=== PATIENT | female | born 1945 | race Caucasian/White ===

== ENCOUNTER → 2016-04-29 | Outpatient (CLI) | payer MEDICARE, BC ==
[2016-04-29 12:06] LABS: Blood Urea Nitrogen 15 mg/dL (7-17); Non-African American GFR(MDRD) 57 (>60 ml/min/1.73 sqM)
--- NOTE | 2016-04-29 12:44 | CT ---
EXAMINATION TYPE: CT abdomen w con DATE OF EXAM: 04/29/2016 12:26 PM COMPARISON: CT CAP April 15, 2016 HISTORY: Lymphoma follow up CT DLP: 976.3 mGycm Automated exposure control for dose reduction was used. TECHNIQUE: Helical acquisition of images was performed from the lung bases through the top of iliac crest to include entire abdomen. CONTRAST: Performed with Oral Contrast and with IV Contrast, patient injected with 80 ml mL of Visipaque 320. FINDINGS: LUNG BASES: Mild cardiomegaly remains present. LIVER/GB: Dependent densities in gallbladder consistent with small stones. Prominent fold or catheter is redemonstrated. PANCREAS: No significant abnormality is seen. SPLEEN: No significant abnormality is seen. ADRENALS: No significant abnormality is seen. KIDNEYS: There is symmetric cortical medullary uptake and excretion from both kidneys without evidenc e of hydronephrosis bilaterally. Central simple appearing parapelvic cyst in left kidney is noted. ABDOMINAL ADENOPATHY: None visualized. OSSEOUS STRUCTURES: Multilevel spurring and vacuum disc phenomenon in the mid to lower thoracic spine is redemonstrated. BOWEL: The oral contrast does not reach colonic level. A small sliding hiatal hernia is redemonstrat ed. No suspicious small or large bowel dilatation is noted. There is moderate calcified plaque in the atherosclerotic aorta. Right common iliac stent graft is no . 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 This is discussed on November study. Reconstitution at level of interna l and external iliac branching is noted. There is [place] fat containing ventral wall hernia just above the umbilicus redemonstrated. IMPRESSION: NO SUSPICIOUS MASS OR ADENOPATHY IS SEEN TO SUGGEST NEOPLASM OR LYMPHOMA INVOLVEMENT IN THE ABDOMEN. NO HEPATOSPLENOMEGALY IS SEEN. NO SIGNIFICANT CHANGE FROM PRIOR STUDIES.
== END | disposition home or self-care (01) ==
LOC: RADCTMAIN 11:22
PROVIDERS: ATTEND Internal Medicine Hematology & Oncology
DX: Z03.89 Encounter for observation for other suspected diseases and conditions ruled out (principal); C83.09 Small cell B-cell lymphoma, extranodal and solid organ sites
CPT/HCPCS: 82565; 84520; 74160; 36415; Q9967

== ENCOUNTER → 2016-12-19 | Outpatient (CLI) | payer MEDICARE, BC ==
[2016-12-19 14:27] LABS: CH 31.1; CHCM 33.7; HDW 2.68; HGB 12.5 gm/dL (11.4-16.0); MCH 32.1 pg (25.0-35.0); MCHC 34.6 g/dL (31.0-37.0); MCV 92.6 fL (80.0-100.0); Mean Platelet Volume 7.1; RBC 3.89 m/uL (3.80-5.40); RDW 13.2 % (11.5-15.5); WBC 7.2 k/uL (3.8-10.6)
[2016-12-19 14:29] LABS: Amorphous Sediment,Urine Rare /hpf; Appearance,Urine Turbid (Clear); Bacteria,Urine Few /hpf; Bilirubin,Urine Negative (Negative); Glucose,Urine (UA) Negative (Negative); Ketones,Urine Negative (Negative); Leukocyte Esterase,Urine Trace (Negative); Mucus,Urine Rare /hpf; Nitrite,Urine Negative (Negative); PH, Urine 6.5 (5.0-8.0); Particle Count 2230; Protein,Urine Trace (Negative); Specific Gravity,Urine 1.019 (1.001-1.035); Squamous Epithelial Cell,Urine 2 /hpf (0-4); UA Billing (MACRO vs. MICRO) MICRO; WBC,Urine 1 /hpf (0-5)
[2016-12-19 14:42] LABS: INR 1.1 (<1.2); Partial Thromboplastin Time 22.6 sec (22.0-30.0); Prothrombin Time 10.6 sec (9.0-12.0)
[2016-12-19 14:47] LABS: ALT 41 U/L (9-52); AST 29 U/L (14-36); Alkaline Phosphatase 126 U/L (38-126); Anion Gap 9 mmol/L; Blood Urea Nitrogen 17 mg/dL (7-17); Calcium 9.5 mg/dL (8.4-10.2); Carbon Dioxide 27 mmol/L (22-30); Chloride 101 mmol/L (98-107); Glucose 83 mg/dL (74-99); Non-African American GFR(MDRD) 55 (>60 ml/min/1.73 sqM); Sodium 137 mmol/L (137-145); Total Protein 6.7 g/dL (6.3-8.2)
== END | disposition home or self-care (01) ==
LOC: LABPAT 13:38
PROVIDERS: ATTEND Orthopaedic Surgery
DX: Z01.810 Encounter for preprocedural cardiovascular examination (principal); Z01.812 Encounter for preprocedural laboratory examination; Z51.81 Encounter for therapeutic drug level monitoring; Z79.01 Long term (current) use of anticoagulants
CPT/HCPCS: 80053; 81001; 85027; 85610; 85730; 87070

== ENCOUNTER 2016-12-28 19:59 | Observation (INO) | payer MEDICARE, BC ==
[2016-12-28] MEDS ORDERED: SODIUM CHLORIDE 0.9% 1,000 ML IV STA ×2 (20:02)
[2016-12-28] MEDS ORDERED: ONDANSETRON 4 MG/2 ML VIAL IVP STA (20:02)
[2016-12-28] MEDS ORDERED: HYDROmorphone 1 MG/ML 1 ML SYRINGE IVP STA (20:03)
--- NOTE | 2016-12-28 20:09 | ED ---
Nausea/Vomiting/Diarrhea HPI - General Source: patient, EMS, RN notes reviewed Mode of arrival: EMS Limitations: no limitations - History of Present Illness MD complaint: nausea, vomiting, abdominal pain, other <Darnell Guzman - Last Filed: 12/28/16 20:46> <Raymundo Cadena - Last Filed: 12/28/16 21:56> - General Chief complaint: Nausea/Vomiting/Diarrhea Stated complaint: NVD Time Seen by Provider: 12/28/16 19:59 - History of Present Illness Initial comments: This is a 71-year-old female history chronic atrial fibrillation who states she had the onset this morning after waking of nausea vomiting and later developed anterior mid epigastric and minutes lower sternal chest pain. She states the pain is sharp 78/10 severity she's had no diarrhea with it. No fevers chills or sweats no cough or phlegm production. States that the pain does get worse with deep breathing and with certain movements. Patient again no relief after 8 mg of Zofran in by EMS. (Darnell Guzman) - Related Data Home Medications Medication Instructions Recorded Confirmed ALPRAZolam [Xanax] 0.25 mg PO TID PRN 05/15/15 12/20/16 Apixaban [Eliquis] 2.5 mg PO BID 05/15/15 12/20/16 Ondansetron Odt [Zofran ODT] 4 mg PO TID PRN 05/15/15 12/20/16 Pantoprazole Sodium [Protonix] 40 mg PO DAILY 05/15/15 12/20/16 Sotalol [Betapace] 80 mg PO DAILY 12/15/15 12/20/16 Lisinopril [Zestril] 10 mg PO QAM 01/15/16 12/20/16 amLODIPine [Norvasc] 5 mg PO DAILY 01/15/16 12/20/16 hydrALAZINE HCL [Apresoline] 50 mg PO TID 01/15/16 12/20/16 Atorvastatin [Lipitor] 40 mg PO DAILY 12/20/16 12/20/16 Budesonide-Formot 160-4.5 Mcg 2 puff INHALATION BID PRN 12/20/16 12/20/16 [Symbicort 160-4.5 Mcg Inhaler] Diltiazem HCl [Diltiazem ER] 120 mg PO QAM 12/20/16 12/20/16 HYDROcodone/APAP 5-325MG [[place] 1 - 2 tab PO Q6HR PRN 12/20/16 12/20/16 5-325] Meclizine [Antivert] 25 mg PO TID 12/20/16 12/20/16 Metoclopramide HCl [Reglan] 5 mg PO TID 12/20/16 12/20/16 Previous Rx's Medication Instructions Recorded Spironolactone [Aldactone] 25 mg PO DAILY #30 tab 05/18/15 Naproxen 500 mg PO Q12HR #20 tab 01/15/16 Allergies Allergy/AdvReac Type Severity Reaction Status Date / Time Sulfa (Sulfonamide Allergy Anaphylaxis Verified 12/28/16 20:10 Antibiotics) Review of Systems ROS Other: All systems not noted in ROS Statement are negative. <Darnell Guzman - Last Filed: 12/28/16 20:46> ROS Other: All systems not noted in ROS Statement are negative. <Raymundo Cadena - Last Filed: 12/28/16 21:56> ROS Statement: Those systems with pertinent positive or pertinent negative responses have been documented in the HPI. 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 12-11-15 tooth extraction-was on abx prior to extraction. Past Anesthesia/Blood Transfusion Reactions: No Reported Reaction Past Psychological History: No Psychological Hx Reported Smoking Status: Former smoker - Past Family History Mother Family Medical History: No Reported History Additional Family Medical History / Comment(s): . Father History Unknown: Yes <Darnell Guzman - Last Filed: 12/28/16 20:46> General Exam Limitations: no limitations General appearance: alert, in distress Head exam: Present: atraumatic, normocephalic, normal inspection Eye exam: Present: normal appearance, PERRL, EOMI. Absent: scleral icterus, conjunctival injection, periorbital swelling ENT exam: Present: normal exam, mucous membranes moist Neck exam: Present: normal inspection. Absent: tenderness, meningismus, lymphadenopathy Respiratory exam: Present: normal lung sounds bilaterally, chest wall tenderness (Reproducible tennis palpation along the lower costosternal angle and xiphoid. No step-off or crepitation). Absent: respiratory distress, wheezes, rales, rhonchi, stridor Cardiovascular Exam: Present: tachycardia, irregular rhythm. Absent: diastolic murmur, rubs, gallop, clicks GI/Abdominal exam: Present: soft, tenderness (Mild epigastric right upper quadrant tenderness palpation no guarding no rebound), normal bowel sounds. Absent: distended, guarding, rebound, rigid Extremities exam: Present: normal inspection, full ROM, normal capillary refill. Absent: tenderness, pedal edema, joint swelling, calf tenderness Back exam: Present: normal inspection Neurological exam: Present: alert, oriented X3, CN II-XII intact Psychiatric exam: Present: normal affect, normal mood Skin exam: Present: warm, dry, intact, normal color. Absent: rash <Darnell Guzman - Last Filed: 12/28/16 20:46> <Raymundo Cadena - Last Filed: 12/28/16 21:56> - General Exam Comments Initial Comments: This is a well-developed well-nourished awake alert appearing female (Darnell Guzman) Course <Darnell Guzman - Last Filed: 12/28/16 20:46> <Raymundo Cadena - Last Filed: 12/28/16 21:56> Vital Signs 12/28/16 12/28/16 12/28/16 20:00 20:54 21:33 Temperature 98.1 F 98.6 F Pulse Rate 126 H 104 H 109 H Respiratory 24 24 20 Rate Blood Pressure 159/93 180/74 158/74 O2 Sat by Pulse 94 L 99 97 Oximetry - Reevaluation(s) Reevaluation #1: 12/28/16 20:46 The patient will be endorsed to Dr. Cadena at our shift change. He will make the final disposition (Darnell Guzman) Medical Decision Making - Lab Data Result diagrams: 12/28/16 20:21 - EKG Data -: EKG Interpreted by Me (Atrial fibrillation rate was 108 QRS 66 QT since QTC of 352/471 nonspecific) <Darnell Guzman - Last Filed: 12/28/16 20:46> - Lab Data Result diagrams: 12/28/16 20:21 12/28/16 20:21 - Radiology Data Radiology results: image reviewed (Acute abdominal series with chest x-ray shows no acute process) <Raymundo Cadena - Last Filed: 12/28/16 21:56> - Medical Decision Making Patient reexamined and resting comfortably in bed. Abdomen soft and nontender. Patient updated on results and plan. Case discussed with practitioner lean coach, who will admit for Dr. Arriaga, covering for Dr. Mckeon. (Raymundo Cadena) - Lab Data Lab Results 12/28/16 12/28/16 12/28/16 Range/Units 20:13 20:21 20:21 WBC (3.8-10.6) k/uL RBC (3.80-5.40) m/uL Hgb (11.4-16.0) gm/dL Hct (34.0-46.0) % MCV (80.0-100.0) fL MCH (25.0-35.0) pg MCHC (31.0-37.0) g/dL RDW (11.5-15.5) % Plt Count (150-450) k/uL Neutrophils % % Lymphocytes % % Monocytes % % Eosinophils % % Basophils % % Neutrophils # (1.3-7.7) k/uL Lymphocytes # (1.0-4.8) k/uL Monocytes # (0-1.0) k/uL Eosinophils # (0-0.7) k/uL Basophils # (0-0.2) k/uL Sodium 136 L (137-145) mmol/L Potassium 3.8 (3.5-5.1) mmol/L Chloride 101 (98-107) mmol/L Carbon Dioxide 20 L (22-30) mmol/L Anion Gap 15 mmol/L BUN 17 (7-17) mg/dL Creatinine 0.86 (0.52-1.04) mg/dL Est GFR (MDRD) Af Amer >60 (>60 ml/min/1.73 sqM) Est GFR (MDRD) Non-Af >60 (>60 ml/min/1.73 sqM) Glucose 177 H (74-99) mg/dL Calcium 9.9 (8.4-10.2) mg/dL Total Bilirubin 1.3 (0.2-1.3) mg/dL AST 31 (14-36) U/L ALT 33 (9-52) U/L Alkaline Phosphatase 162 H (38-126) U/L Total Creatine Kinase 43 (30-135) U/L CK-MB (CK-2) 1.4 (0.0-2.4) ng/mL CK-MB (CK-2) Rel Index 3.3 Troponin I <0.012 (0.000-0.034) ng/mL Total Protein 7.8 (6.3-8.2) g/dL Albumin 4.5 (3.5-5.0) g/dL Amylase 40 (30-110) U/L Lipase 55 (23-300) U/L Urine Color Light Yellow Urine Appearance Cloudy H (Clear) Urine pH 8.0 (5.0-8.0) Ur Specific [place] 1.009 (1.001-1.035) Urine Protein Negative (Negative) Urine Glucose (UA) Trace H (Negative) Urine Ketones 2+ H (Negative) Urine Blood Negative (Negative) Urine Nitrite Negative (Negative) Urine Bilirubin Negative (Negative) Urine Urobilinogen <2.0 (<2.0) mg/dL Ur Leukocyte Esterase Negative (Negative) Urine RBC <1 (0-5) /hpf Urine WBC 1 (0-5) /hpf Ur Squamous Epith Cells <1 (0-4) /hpf 12/28/16 Range/Units 20:21 WBC 11.1 H (3.8-10.6) k/uL RBC 4.39 (3.80-5.40) m/uL Hgb 13.8 (11.4-16.0) gm/dL Hct 39.4 (34.0-46.0) % MCV 89.6 (80.0-100.0) fL MCH 31.4 (25.0-35.0) pg MCHC 35.1 (31.0-37.0) g/dL RDW 14.1 (11.5-15.5) % Plt Count 345 (150-450) k/uL Neutrophils % 87 % Lymphocytes % 9 % Monocytes % 2 % Eosinophils % 1 % Basophils % 0 % Neutrophils # 9.7 H (1.3-7.7) k/uL Lymphocytes # 1.0 (1.0-4.8) k/uL Monocytes # 0.3 (0-1.0) k/uL Eosinophils # 0.1 (0-0.7) k/uL Basophils # 0.0 (0-0.2) k/uL Sodium (137-145) mmol/L Potassium (3.5-5.1) mmol/L Chloride (98-107) mmol/L Carbon Dioxide (22-30) mmol/L Anion Gap mmol/L BUN (7-17) mg/dL Creatinine (0.52-1.04) mg/dL Est GFR (MDRD) Af Amer (>60 ml/min/1.73 sqM) Est GFR (MDRD) Non-Af (>60 ml/min/1.73 sqM) Glucose (74-99) mg/dL Calcium (8.4-10.2) mg/dL Total Bilirubin (0.2-1.3) mg/dL AST (14-36) U/L ALT (9-52) U/L Alkaline Phosphatase (38-126) U/L Total Creatine Kinase (30-135) U/L CK-MB (CK-2) (0.0-2.4) ng/mL CK-MB (CK-2) Rel Index Troponin I (0.000-0.034) ng/mL Total Protein (6.3-8.2) g/dL Albumin (3.5-5.0) g/dL Amylase (30-110) U/L Lipase (23-300) U/L Urine Color Urine Appearance (Clear) Urine pH (5.0-8.0) Ur Specific [place] (1.001-1.035) Urine Protein (Negative) Urine Glucose (UA) (Negative) Urine Ketones (Negative) Urine Blood (Negative) Urine Nitrite (Negative) Urine Bilirubin (Negative) Urine Urobilinogen (<2.0) mg/dL Ur Leukocyte Esterase (Negative) Urine RBC (0-5) /hpf Urine WBC (0-5) /hpf Ur Squamous Epith Cells (0-4) /hpf Disposition <Darnell Guzman - Last Filed: 12/28/16 20:46> Decision Time: 21:56 <Raymundo Cadena - Last Filed: 12/28/16 21:56> Clinical Impression: Vomiting, Chest pain Disposition: ADMITTED IP TO THIS HOSP Referrals: Paige Mckeon MD [Primary Care Provider] - 1-2 days
[2016-12-28] MEDS ORDERED: PROMETHAZINE INJ 25 MG in SODIUM CHLORIDE 0.9% 50 ML IVPB STA (20:17)
[2016-12-28 20:35] LABS: Basophils % (A) 0 %; CH 32.1; CHCM 35.9; Eosinophils # (A) 0.1 k/uL (0-0.7); Eosinophils % (A) 1 %; HCT 39.4 % (34.0-46.0); HDW 2.69; HGB 13.8 gm/dL (11.4-16.0); Luc # (Auto) 0.05; Luc % (Auto) 0; Lymphocytes % (A) 9 %; MCH 31.4 pg (25.0-35.0); MCHC 35.1 g/dL (31.0-37.0); MCV 89.6 fL (80.0-100.0); Mean Platelet Volume 7.2; Monocytes # (A) 0.3 k/uL (0-1.0); Monocytes % (A) 2 %; Neutrophils # (A) 9.7 k/uL (1.3-7.7); Neutrophils % (A) 87 %; RBC 4.39 m/uL (3.80-5.40); RDW 14.1 % (11.5-15.5); WBC 11.1 k/uL (3.8-10.6); WBC (Perox) 10.95
[2016-12-28 20:48] LABS: Appearance,Urine Cloudy (Clear); Bilirubin,Urine Negative (Negative); Glucose,Urine (UA) Trace (Negative); Ketones,Urine 2+ (Negative); Leukocyte Esterase,Urine Negative (Negative); Nitrite,Urine Negative (Negative); Particle Count 3953; Protein,Urine Negative (Negative); RBC,Urine <1 /hpf (0-5); Specific Gravity,Urine 1.009 (1.001-1.035); Squamous Epithelial Cell,Urine <1 /hpf (0-4); UA Billing (MACRO vs. MICRO) MICRO; Urobilinogen,Urine <2.0 mg/dL (<2.0); WBC,Urine 1 /hpf (0-5)
[2016-12-28 20:52] LABS: ALT 33 U/L (9-52); AST 31 U/L (14-36); Alkaline Phosphatase 162 U/L (38-126); Amylase 40 U/L (30-110); Anion Gap 15 mmol/L; Blood Urea Nitrogen 17 mg/dL (7-17); Calcium 9.9 mg/dL (8.4-10.2); Carbon Dioxide 20 mmol/L (22-30); Chloride 101 mmol/L (98-107); Glucose 177 mg/dL (74-99); Non-African American GFR(MDRD) >60 (>60 ml/min/1.73 sqM); Potassium 3.8 mmol/L (3.5-5.1); Sodium 136 mmol/L (137-145); Total Bilirubin 1.3 mg/dL (0.2-1.3); Total Protein 7.8 g/dL (6.3-8.2)
[2016-12-28 20:55] LABS: Creatine Kinase 43 U/L (30-135)
--- NOTE | 2016-12-28 20:58 | XR ---
EXAMINATION TYPE: XR abdomen acute w cxr DATE OF EXAM: 12/28/2016 COMPARISON: NONE HISTORY: Abdominal pain TECHNIQUE: Frontal view of the chest, upright view of the abdomen and supine views obtained in total of 4 images FINDINGS: Chest x-ray is unremarkable but rotated, there are overlying cardiac leads. Bone mineraliz ation is reduced. Sclerotic density with lucency noted within the right hip, there may be prior osteo necrosis with collapse of the femoral head. There is no evidence for pneumoperitoneum. Vascular calcifications are present within the abdomen. S urgical clips are present in the right upper quadrant. The bowel gas pattern is unremarkable as there is air throughout nondilated small and large bowel. No sizeable air fluid levels. No mass effects are seen. No unusual calcifications. IMPRESSION: Unremarkable study
[2016-12-28 21:08] LABS: Creatine Kinase MB 1.4 ng/mL (0.0-2.4); Troponin I <0.012 ng/mL (0.000-0.034)
[2016-12-28] MEDS ORDERED: NITROGLYCERIN SL TABS 0.4 MG TAB SUBLINGUAL PRN (21:56)
[2016-12-28] MEDS ORDERED: METOCLOPRAMIDE 5 MG/ML 2 ML VIAL IVP STA (22:15)
[2016-12-28 22:51] VITALS: BMI 34.3
[2016-12-28] MEDS: MORPHINE SULFATE 2 MG/ML SYRINGE IVP PRN (23:08)
[2016-12-28] MEDS: ONDANSETRON 4 MG/2 ML VIAL IVP PRN (23:08)
[2016-12-29] MEDS: MORPHINE SULFATE 2 MG/ML SYRINGE IVP PRN ×4 (01:52→13:48)
[2016-12-29] MEDS: NITROGLYCERIN OINT 1 INCH/GM PACKET TOPICAL SCH ×3 (01:53→12:06)
[2016-12-29] MEDS ORDERED: MAG HYDROX/AL HYDROX/SIMETH 30 ML CUP PO PRN (01:56)
[2016-12-29 02:46] LABS: Troponin I 0.033 ng/mL (0.000-0.034)
[2016-12-29] MEDS: ONDANSETRON 4 MG/2 ML VIAL IVP PRN ×2 (08:26→14:41)
[2016-12-29] MEDS ORDERED: ASPIRIN 325 MG TAB PO SCH (09:00)
[2016-12-29 09:49] LABS: Cholesterol 119 mg/dL (<200); HDL Cholesterol 58 mg/dL (40-60)
[2016-12-29 10:14] LABS: Creatine Kinase MB 1.8 ng/mL (0.0-2.4); Troponin I 0.024 ng/mL (0.000-0.034)
--- NOTE | 2016-12-29 10:59 | P.CRDCN ---
History of Present Illness Consult date: 12/29/16 Consult reason: chest pain History of present illness: 71-year-old lady with history of paroxysmal atrial fibrillation and hypertension is admitted to hospital with nausea vomiting and complained of chest pain. She is admitted to hospital for the same and cardiology has been consulted. At the time of my evaluation this morning she is pain-free hemodynamically stable EKG does not reveal acute ischemic changes she has had runs of atrial fibrillation and myocardial infarction is ruled out. Patient is to undergo hip replacement and has recently been evaluated. Her stress test is negative for ischemia and echocardiogram apparently was within normal limits. Her chest discomfort is atypical and noncardiac in origin. This discomfort is probably related to the nausea vomiting. She is stable to be discharged home and from cardiac standpoint still stable to go through surgery under anesthesia Review of Systems Constitutional: Denies chills. Denies fever. Eyes: Denies blurred vision. Denies pain. Ears, nose, mouth and throat: Denies headache. Denies sore throat. Cardiovascular: chest pain. Denies shortness of breath. Respiratory: Denies cough. Gastrointestinal: Denies nausea. Denies vomiting. Patient had nausea vomiting on her initial presentation but this has resolved now Musculoskeletal: Denies myalgias. Integumentary: Denies pruritus. Denies rash. Neurological: Denies numbness. Denies weakness. Psychiatric: Denies anxiety. Denies depression. Endocrine: Denies fatigue. Denies weight change. Genitourinary: Denies burning, hematuria, frequency of urination. Hematological: No anemia or excess bleeding. 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 12-11-15 tooth extraction-was on abx prior to extraction. Past Anesthesia/Blood Transfusion Reactions: No Reported Reaction Past Psychological History: No Psychological Hx Reported Smoking Status: Former smoker Past Alcohol Use History: None Reported Additional Past Alcohol Use History / Comment(s): quit 2011 Past Drug Use History: None Reported - Past Family History Mother Family Medical History: No Reported History Additional Family Medical History / Comment(s): . Father History Unknown: Yes Medications and Allergies Home Medications Medication Instructions Recorded Confirmed Type ALPRAZolam [Xanax] 0.25 mg PO TID PRN 05/15/15 12/29/16 History Apixaban [Eliquis] 2.5 mg PO BID 05/15/15 12/29/16 History Ondansetron Odt [Zofran ODT] 4 mg PO TID PRN 05/15/15 12/29/16 History Pantoprazole Sodium [Protonix] 40 mg PO DAILY 05/15/15 12/29/16 History Spironolactone [Aldactone] 25 mg PO DAILY #30 tab 05/18/15 12/29/16 Rx Sotalol [Betapace] 80 mg PO DAILY 12/15/15 12/29/16 History Lisinopril [Zestril] 10 mg PO QAM 01/15/16 12/29/16 History Naproxen 500 mg PO Q12HR #20 tab 01/15/16 12/29/16 Rx amLODIPine [Norvasc] 5 mg PO DAILY 01/15/16 12/29/16 History hydrALAZINE HCL [Apresoline] 50 mg PO TID 01/15/16 12/29/16 History Atorvastatin [Lipitor] 40 mg PO DAILY 12/20/16 12/29/16 History Budesonide-Formot 160-4.5 Mcg 2 puff INHALATION BID PRN 12/20/16 12/29/16 History [Symbicort 160-4.5 Mcg Inhaler] Diltiazem HCl [Diltiazem ER] 120 mg PO QAM 12/20/16 12/29/16 History HYDROcodone/APAP 5-325MG [[place] 1 - 2 tab PO Q6HR PRN 12/20/16 12/29/16 History 5-325] Meclizine [Antivert] 25 mg PO TID 12/20/16 12/29/16 History Metoclopramide HCl [Reglan] 5 mg PO TID 12/20/16 12/29/16 History Allergies Allergy/AdvReac Type Severity Reaction Status Date / Time Sulfa (Sulfonamide Allergy Anaphylaxis Verified 12/29/16 07:59 Antibiotics) Physical Exam Vitals: Vital Signs Temp Pulse Pulse Resp BP BP Pulse Ox 12/29/16 08:00 98.3 F 66 18 94/57 94 L 12/29/16 04:00 97.9 F 91 18 118/58 93 L 12/28/16 23:33 98 18 12/28/16 22:43 97.6 F 89 18 130/92 95 12/28/16 21:33 98.6 F 109 H 20 158/74 97 12/28/16 20:54 104 H 24 180/74 99 12/28/16 20:00 98.1 F 126 H 24 159/93 94 L Intake and Output 12/28/16 12/29/16 12/29/16 22:59 06:59 14:59 Other: Voiding Method Toilet Toilet # Voids 2 4 Weight 90.7 kg General: The patient is awake and alert, in no distress, and does not appear acutely ill. Skin: Skin is warm and dry and no rashes or lesions are noted. Eye: Pupils are equal, round and reactive to light, extra-ocular movements are intact; there is normal conjunctiva bilaterally. Ears, nose, mouth and throat: There are moist mucous membranes and no oral lesions. Neck: The neck is supple, there is no tenderness or JVD. Cardiovascular: There is a regular rate and rhythm. No murmur, rub or gallop is appreciated. Respiratory: Lungs are clear to auscultation, respirations are non-labored, breath sounds are equal. Gastrointestinal: Soft, non-distended, non-tender abdomen without masses or organomegaly noted. There is no rebound or guarding present. Bowel sounds are unremarkable. Back: There is no tenderness to palpation in the midline. There is no obvious deformity. Musculoskeletal: Normal ROM, no tenderness, There is no pedal edema. There is no calf tenderness or swelling. Extremities: No edema. Vascular: Femoral pulse is normal. Posterior tibial pulses are normal .Dorsalis pedis is palpable. Neurological: CN II-XII intact. There are no obvious motor or sensory deficits. Speech is normal. Psychiatric: Cooperative, appropriate mood & affect, normal judgment. Results 12/28/16 20:21 12/28/16 20:21 Cardiac Enzymes 12/28/16 12/28/16 12/29/16 Range/Units 20:21 20:21 01:40 AST 31 (14-36) U/L CK-MB (CK-2) 1.4 2.0 (0.0-2.4) ng/mL Troponin I <0.012 0.033 (0.000-0.034) ng/mL 12/29/16 Range/Units 09:03 AST (14-36) U/L CK-MB (CK-2) 1.8 (0.0-2.4) ng/mL Troponin I 0.024 (0.000-0.034) ng/mL Lipids 12/29/16 Range/Units 09:07 Triglycerides 81 (<150) mg/dL Cholesterol 119 (<200) mg/dL HDL Cholesterol 58 (40-60) mg/dL CBC 12/28/16 Range/Units 20:21 WBC 11.1 H (3.8-10.6) k/uL RBC 4.39 (3.80-5.40) m/uL Hgb 13.8 (11.4-16.0) gm/dL Hct 39.4 (34.0-46.0) % Plt Count 345 (150-450) k/uL Comprehensive Metabolic Panel 12/28/16 Range/Units 20:21 Sodium 136 L (137-145) mmol/L Potassium 3.8 (3.5-5.1) mmol/L Chloride 101 (98-107) mmol/L Carbon Dioxide 20 L (22-30) mmol/L BUN 17 (7-17) mg/dL Creatinine 0.86 (0.52-1.04) mg/dL Glucose 177 H (74-99) mg/dL Calcium 9.9 (8.4-10.2) mg/dL AST 31 (14-36) U/L ALT 33 (9-52) U/L Alkaline Phosphatase 162 H (38-126) U/L Total Protein 7.8 (6.3-8.2) g/dL Albumin 4.5 (3.5-5.0) g/dL Current Medications Generic Name Dose Route Start Last Admin Trade Name Freq PRN Reason Stop Dose Admin Al Hydroxide/Mg Hydroxide 30 ml 12/29/16 01:56 12/29/16 02:07 Maalox PO 30 ml Q4HR PRN Administration GI Upset Aspirin 325 mg 12/29/16 09:00 12/29/16 08:24 Aspirin PO 325 mg DAILY MIRANDA Administration Morphine Sulfate 2 mg 12/28/16 23:00 12/29/16 08:24 Morphine Sulfate (Inj) IVP 2 mg Q3H PRN Administration Pain/Discomfort Nitroglycerin 1 inch 12/29/16 00:00 12/29/16 05:47 Nitro-Bid Oint TOPICAL Not Given Q6HR [facility] Nitroglycerin 0.4 mg 12/28/16 21:56 Nitrostat SUBLINGUAL Q5M PRN Chest Pain Ondansetron HCl 4 mg 12/28/16 23:00 12/29/16 08:26 Zofran IVP 4 mg Q6HR PRN Administration Nausea And Vomiting Sodium Chloride 10 ml 12/29/16 09:00 12/29/16 08:24 Saline Flush IV 10 ml BID MIRANDA Administration Intake and Output 12/28/16 12/29/16 12/29/16 22:59 06:59 14:59 Other: Voiding Method Toilet Toilet # Voids 2 4 Weight 90.7 kg 12/28/16 20:21 12/28/16 20:21 EKG Interpretations (text) Normal sinus rhythm and 1 EKG showed atrial fibrillation with nonspecific ST-T wave changes Assessment and Plan Plan: Precordial chest pain Nausea vomiting Arthritis Paroxysmal atrial fibrillation Patient had recent negative cardiac workup myocardial infarction is ruled out chest discomfort is atypical and related to nausea vomiting does not require further workup at this time she is stable to be discharged home and can still proceed with her hip surgery from cardiac standpoint
[2016-12-29 12:25] VITALS: BP 97/50; PULSE 69; RESP 16; TEMP 98
--- NOTE | 2016-12-29 18:41 | P.HPIM ---
History of Present Illness H&P Date: 12/29/16 (Discharge summary) Chief Complaint: Abdominal pain This is 71-year-old female well-known to her service comes in to the hospital with complaints of abdominal pain and mild chest pain. Patient was admitted multiple times to [facility] with these complaints patient underwent a cholecystectomy thereafter after multiple studies her symptoms were attribute it to gastroparesis. Patient was recommended to eat small frequent meals and was also given a prescription for Reglan in the past. Patient was doing well on the above-described regimen. Patient's son was at bedside states that she ate a large cheeseburger prior to her onset of her symptoms thereafter noted severe abdominal pain radiating to her chest. She can to the hospital for further evaluation Off note patient is scheduled for a hip surgery tomorrow in the a.m. Patient was noted to be in atrial fibrillation was slightly increased ventricular rate At the time of my evaluation patient states that her abdominal pain is resolved no nausea no chest pain or difficulty breathing no diarrhea urinary urgency or frequency Review of systems a 14 point review of system was done nonpertinent was mentioned above Physical exam Gen. appearance oriented 3 in no distress Neck is supple no JVD Lungs good air entry clear to auscultation no rhonchi or wheezing Heart S1-S2 heard regular rate and rhythm no murmurs appreciated Abdomen is soft nontender no organomegaly bowel sounds are intact Neurologically cranial nerves II-12 grossly intact no focal motor or sensory deficits noted Skin no abnormalities appreciated. Musculoskeletal there is some tenderness noted to straight leg test on both sides Labs were reviewed Assessment and plan #1 acute exacerbation of gastroparesis #2 atypical chest pain #3 atrial fibrillation, chronic controlled ventricular rate #4 history of CAD #5 osteoarthritis #6 essential hypertension. #7 dyslipidemia Plan Patient will be discharged home. Is recommended to come back in to the hospital for her elective hip surgery Patient is stable no further workup is needed patient's symptoms are very consistent with her previous admissions She is again recommended to follow eating frequent small meals Discharged home in stable condition. 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 12-11-15 tooth extraction-was on abx prior to extraction. Past Anesthesia/Blood Transfusion Reactions: No Reported Reaction Past Psychological History: No Psychological Hx Reported Smoking Status: Former smoker Past Alcohol Use History: None Reported Additional Past Alcohol Use History / Comment(s): quit 2011 Past Drug Use History: None Reported - Past Family History Mother Family Medical History: No Reported History Additional Family Medical History / Comment(s): . Father History Unknown: Yes Medications and Allergies Home Medications Medication Instructions Recorded Confirmed Type ALPRAZolam [Xanax] 0.25 mg PO TID PRN 05/15/15 12/29/16 History Apixaban [Eliquis] 2.5 mg PO BID 05/15/15 12/29/16 History Ondansetron Odt [Zofran ODT] 4 mg PO TID PRN 05/15/15 12/29/16 History Pantoprazole Sodium [Protonix] 40 mg PO DAILY 05/15/15 12/29/16 History Spironolactone [Aldactone] 25 mg PO DAILY #30 tab 05/18/15 12/29/16 Rx Sotalol [Betapace] 80 mg PO DAILY 12/15/15 12/29/16 History Lisinopril [Zestril] 10 mg PO QAM 01/15/16 12/29/16 History Naproxen 500 mg PO Q12HR #20 tab 01/15/16 12/29/16 Rx amLODIPine [Norvasc] 5 mg PO DAILY 01/15/16 12/29/16 History hydrALAZINE HCL [Apresoline] 50 mg PO TID 01/15/16 12/29/16 History Atorvastatin [Lipitor] 40 mg PO DAILY 12/20/16 12/29/16 History Budesonide-Formot 160-4.5 Mcg 2 puff INHALATION BID PRN 12/20/16 12/29/16 History [Symbicort 160-4.5 Mcg Inhaler] Diltiazem HCl [Diltiazem 24Hr ER] 120 mg PO QAM 12/20/16 12/29/16 History HYDROcodone/APAP 5-325MG [[place] 1 - 2 tab PO Q6HR PRN 12/20/16 12/29/16 History 5-325] Meclizine [Antivert] 25 mg PO TID 12/20/16 12/29/16 History Metoclopramide HCl [Reglan] 5 mg PO TID 12/20/16 12/29/16 History Allergies Allergy/AdvReac Type Severity Reaction Status Date / Time Sulfa (Sulfonamide Allergy Anaphylaxis Verified 12/29/16 07:59 Antibiotics) Physical Exam Vitals: Vital Signs Temp Pulse Pulse Resp BP BP Pulse Ox 12/29/16 12:00 98.0 F 69 16 97/50 94 L 12/29/16 08:00 98.3 F 66 18 94/57 94 L 12/29/16 04:00 97.9 F 91 18 118/58 93 L 12/28/16 23:33 98 18 12/28/16 22:43 97.6 F 89 18 130/92 95 12/28/16 21:33 98.6 F 109 H 20 158/74 97 12/28/16 20:54 104 H 24 180/74 99 12/28/16 20:00 98.1 F 126 H 24 159/93 94 L Intake and Output 12/29/16 12/29/16 12/29/16 06:59 14:59 22:59 Intake Total 260 Balance 260 Intake: Oral 260 Other: Voiding Method Toilet Toilet # Voids 4 1 Results CBC & Chem 7: 12/28/16 20:21 12/28/16 20:21 Labs: Abnormal Lab Results - Last 24 Hours (Table) 12/28/16 12/28/16 12/28/16 Range/Units 20:13 20:21 20:21 WBC 11.1 H (3.8-10.6) k/uL Neutrophils # 9.7 H (1.3-7.7) k/uL Sodium 136 L (137-145) mmol/L Carbon Dioxide 20 L (22-30) mmol/L Glucose 177 H (74-99) mg/dL Alkaline Phosphatase 162 H (38-126) U/L Urine Appearance Cloudy H (Clear) Urine Glucose (UA) Trace H (Negative) Urine Ketones 2+ H (Negative) Thrombosis Risk Factor Assmnt - Choose All That Apply Each Factor Represents 1 point: Obesity (BMI >25) Each Risk Factor Represents 2 Points: Age 61-74 years Thrombosis Risk Factor Assessment Total Risk Factor Score: 3 Thrombosis Risk Factor Assessment Level: Moderate Risk
== END 2016-12-29 15:05 | disposition home or self-care (01) ==
LOC: EC 19:59 → 3OBS 21:56
PROVIDERS: ADMIT Hospitalist; ATTEND Hospitalist
DX: K31.84 Gastroparesis (principal); R07.89 Other chest pain; R07.2 Precordial pain; I48.2 Chronic atrial fibrillation; I48.0 Paroxysmal atrial fibrillation; I25.10 Atherosclerotic heart disease of native coronary artery without angina pectoris; M19.90 Unspecified osteoarthritis, unspecified site; I11.0 Hypertensive heart disease with heart failure; I50.9 Heart failure, unspecified; E78.5 Hyperlipidemia, unspecified; J44.9 Chronic obstructive pulmonary disease, unspecified; Z79.01 Long term (current) use of anticoagulants; Z79.899 Other long term (current) drug therapy; Z79.51 Long term (current) use of inhaled steroids; Z88.2 Allergy status to sulfonamides; Z87.01 Personal history of pneumonia (recurrent); Z86.73 Personal history of transient ischemic attack (TIA), and cerebral infarction without residual deficits; Z86.718 Personal history of other venous thrombosis and embolism; Z87.891 Personal history of nicotine dependence; E66.9 Obesity, unspecified; Z68.34 Body mass index [BMI] 34.0-34.9, adult
CPT/HCPCS: 99285; 96365 ×2; 96375 ×3; 96361 ×4; 96376; 36415; 93005; 80061; 80053; 82150; 82550 ×2; 82553 ×2; 83690; 84484 ×2; 85025; 81001; 74022; G0378 ×2; J2550; J2765; J2405 ×2; J2270 ×2; J1170

== ENCOUNTER 2016-12-30 05:58 | Inpatient (IN) | payer MEDICARE, BC ==
[2016-12-20 11:45] VITALS: BMI 34.3
[~2016-12-30 05:58] MED LIST: ACETAMINOPHEN TAB 500 MG TAB PO ONE; LACTATED RINGERS 1,000 ML IV SCH; MELOXICAM 7.5 MG TAB PO ONE; ONDANSETRON 4 MG/2 ML VIAL IVP ONE; TRANEXAMIC ACID 1,000 MG in SODIUM CHLORIDE 0.9% 100 ML IVPB ONE; ceFAZolin 2 GM in SODIUM CHLORIDE 0.9% 100 ML IVPB ONE
[2016-12-30 06:39] VITALS: BP 97/54; PULSE 48; RESP 14; TEMP 97.6
== END 2016-12-30 07:12 | disposition home or self-care (01) | DRG 554 ==
LOC: 2ORMAIN 05:58
PROVIDERS: ADMIT Orthopaedic Surgery; ATTEND Orthopaedic Surgery
DX: M87.059 Idiopathic aseptic necrosis of unspecified femur (principal); I48.0 Paroxysmal atrial fibrillation; I51.81 Takotsubo syndrome; Z88.2 Allergy status to sulfonamides; Z79.02 Long term (current) use of antithrombotics/antiplatelets; Z79.83 Long term (current) use of bisphosphonates; Z79.899 Other long term (current) drug therapy; Z87.891 Personal history of nicotine dependence; I10 Essential (primary) hypertension; E78.5 Hyperlipidemia, unspecified; Z53.8 Procedure and treatment not carried out for other reasons
CPT/HCPCS: 86850; 86900; 86901

== ENCOUNTER → 2017-02-25 | Outpatient (CLI) | payer MEDICARE, BC | END | disposition home or self-care (01) | LOC: LABWHC1 13:00 | PROVIDERS: ATTEND Orthopaedic Surgery | DX: Z01.812 Encounter for preprocedural laboratory examination (principal) | CPT/HCPCS: 86850; 86900; 86901 ==

== ENCOUNTER 2017-03-03 06:42 | Inpatient (IN) | payer MEDICARE, BC ==
[2017-02-24 12:50] VITALS: BMI 35.4
[~2017-03-03 06:42] MED LIST changes: +DEXAMETHASONE SOD PHOSPHATE 10 MG/ML 1 ML VIAL IV ONE; +MIDAZOLAM 2 MG/2 ML VIAL IV PRN; -ceFAZolin 2 GM in SODIUM CHLORIDE 0.9% 100 ML IVPB ONE; +ceFAZolin IN SWFI 2 GM/20 ML SYRINGE IVP ONE
[2017-03-03] MEDS ORDERED: LIDOCAINE 1% 20 ML VIAL (10MG/ML) FOR IV START INTRADERMA ONE (07:47)
[2017-03-03] MEDS ORDERED: ROPIVACAINE 246.25 MG, EPINEPHrine 0.5 MG, KETOROLAC 30 MG, cloNIDine HCL/PF 80 MCG, WA... MISCELLANE ONE ×5 (07:47)
[2017-03-03] MEDS ORDERED: TRANEXAMIC ACID 1,000 MG/10 ML VIAL ONE (07:54)
[2017-03-03] MEDS ORDERED: PROPOFOL 10 MG/ML 20 ML VIAL IV ONE (07:54)
[2017-03-03] MEDS ORDERED: ONDANSETRON 4 MG/2 ML VIAL ONE (07:54)
[2017-03-03] MEDS ORDERED: fentaNYL (PF) 50 MCG/ML 2 ML AMP ONE (07:54)
[2017-03-03] MEDS ORDERED: MIDAZOLAM 2 MG/2 ML VIAL ONE (07:54)
[2017-03-03] MEDS ORDERED: SODIUM CHLORIDE 0.9% 100 ML BAG ONE (07:54)
[2017-03-03] MEDS ORDERED: ePHEDrine SULFATE/0.9% NACL/PF 50 MG/5 ML SYRINGE IV ONE (07:54)
[2017-03-03] MEDS ORDERED: ceFAZolin 3,000 MG in SODIUM CHLORIDE 0.9% IRRIGATIO 3,000 ML IRRIGATION ONE (08:30)
[2017-03-03] MEDS ORDERED: HYDROmorphone 1 MG/ML 1 ML SYRINGE IVP PRN ×2 (10:18)
[2017-03-03] MEDS ORDERED: TEMAZEPAM 15 MG CAP PO PRN (10:18)
[2017-03-03] MEDS ORDERED: MAGNESIUM HYDROXIDE 2,400 MG/10 ML CUP PO PRN (10:18)
[2017-03-03] MEDS ORDERED: HYDROcodone/APAP 5-325MG 1 EACH TAB PO PRN (10:18)
[2017-03-03] MEDS ORDERED: hydrOXYzine PAMOATE 25 MG CAP PO PRN (10:18)
[2017-03-03] MEDS ORDERED: NALOXONE 0.4 MG/ML 1 ML VIAL IV PRN (10:18)
--- NOTE | 2017-03-03 10:29 | P.OP ---
Date of Procedure: 03/03/17 Procedure(s) Performed: PREOPERATIVE DIAGNOSIS: Right hip severe osteoarthritis POSTOPERATIVE DIAGNOSIS: Right hip severe osteoarthritis OPERATION: Right hip total replacement arthroplasty (uncemented implantation with metal on polyethylene articulation). ANESTHESIA: Spinal ESTIMATED BLOOD LOSS: 250 ml. UPPER STITCHER: Ade Carranza PA-C (assistance with: patient positioning, retraction, exposure, hemostasis, leg positioning, implantation, irrigation, closure, dressing) COMPLICATIONS: None apparent. COMPONENTS IMPLANTED: Valente continuum acetabular cup with cluster holes; continuum longevity 15 elevated liner, 32 mm id; Valente VerSys Fiber Metal stem ; VerSys 32 mm femoral head with +10.5 mm neck length extension INDICATIONS: Mrs. Anand is a 71-year-old female with significant osteonecrosis /secondary osteoarthritis with superior femoral head subchondral fracture involving the right hip and commensurate severe symptoms. She presents to the operating room today for total hip replacement. I have discussed the steps of the operation as well as potential risks and complications as being inclusive of , but not limited to: Leading, infection, scarring, discomfort, or vessel and/ or nerve damage, need for further surgery, loosening, dislocation, wear, osteolysis, limb length inequality, fracture, blood clot, pulmonary embolism, , persistent limp, and other risks. The patient is aware these risks and wishes to proceed with surgery and has signed a consent form. PROCEDURE: After appropriate consent was obtained, the patient was taken to the operating room and placed in supine position. Spinal anesthetic was administered and after confirmation of adequate anesthesia, the patient was placed into the lateral decubitus position with the right side up. Care was taken to make sure that all pressure points were adequately padded and he was stabilized to the table with a [place] hip positioner. The right hip was prepped and draped in the usual aseptic fashion using a combination of ChloraPrep and alcohol. [place] drape was used for the case and the patient received intravenous antibiotics prior to the incision. "Time out" was called , confirming patient identity, side, procedure, availability of implants and administration of antibiotics and TXA. The incision was created directly over the greater trochanter and carried slightly posteriorly for a posterior approach to the hip. The incision was then deepened down to subcutaneous tissue and fascia zulay. Fascia zulay was split in line with the incision and split proximally along the fibers of the gluteus mary. The underlying fibers of the muscle were teased apart using finger dissection and bleeding vessels were picked up and coagulated. Retractor was then placed posteriorly consisting of a blunt [place]. The short external rotators and capsule were exposed using good visualization of the attachment of the external rotators to the femur was established. The short external rotators and capsule were released using electrocautery from their femoral attachments. A hockey stick shaped incision was created in the capsule. Joint fluid was evacuated and the patient's hip was able to be dislocated fairly easily. The patient's femoral head was collapsed superiorly with detachable loose bone present over the superior aspect of the femoral head. The superior aspect of the femoral head was flattened and soft, and able to be easily penetrated with a hemostat. The femoral neck cut was created approximately 1 cm superior to the lesser trochanter using a reciprocating saw. The femoral head and neck fragment was removed and attention was then directed to the acetabulum. An anterior acetabular retractor was applied followed by posterior retraction of the capsule with a [place] retractor. This afforded good visualization into the acetabular cavity. Soft tissue was removed and residual cartilage within the acetabular vault was removed using a curette. Labrum was removed using a long-handled knife. Attention was then directed to reaming. The size 44 reamer was used first, followed by increasing increments until the final size reamer was used. Please see the implantation sheet for exact sizes used for the components. Once the final reamer had been utilized to expand the socket it was noted that there was a good supportive bone around the acetabular socket and no further reaming needed to be performed. The trial the same size as the last reamer used was then impacted into the acetabular vault and found to have good fit. The acetabular component, one mm greater than the last reamer used was then called for. The cluster holes were placed posteriorly and the component was impacted in a position of approximately 40 degrees abduction and 20 degrees anteversion. This matched this patient's [place] anteversion and it was noted that the cup had excellent stability without need for additional screw fixation. Attention was then directed to the acetabular liner. The anteversion and abduction angle of the component was noted to be very good. A 15 elevated liner was used and locked into position with the elevation posterior superior. Osteophytes around the posterior and inferior aspect of the acetabulum were trimmed as necessary to prevent any impingement. Attention was then directed back to the proximal femur. Retractors were placed around the proximal femur and box osteotome was used followed by canal finder and trochanteric reamer. Cylindrical reaming was performed. Progressive broaching was then performed starting with a #10 broach and progressing final size, in a position of 15 degrees anteversion. [place] anteversion was within 5 degrees of stem position. The final size broach had excellent fit and fill of the patient's metaphysis and diaphysis. Trial reduction was then performed starting with size 32 mm femoral head and various neck combination of stability , limb length equality, and soft tissue tension. Trial components were then removed. The canal was lavaged and the final size femoral stem component was impacted into position. The implant fit very well and had excellent stability. The femoral head was then impacted onto the Roth taper. Blood and debris were removed from the acetabular component and the hip was then reduced and checked for stability, limb length and soft tissue tension. These parameters found to be satisfactory, the wound was then thoroughly irrigated with normal saline. Final hemostasis was obtained using electrocautery and IV tranexamic acid, 1 g given at the time of prepping and draping, and another 1 g given at the time of closure. Local anesthetic solution consisting of ropivacaine with epinephrine, clonidine, and ketorolac was also used throughout the case targeting the capsule , fascia, and skin. Closure of the capsule was performed meticulously using #3 Vicryl suture. Four dyjbil-dz-[id number] sutures were placed in the posterior capsule along with repair of the external rotators. The fascia zulay was then repaired using combination of #3 Vicryl suture in interrupted fashion and Quill and running fashion. 2-0 Vicryl suture was used for the subcutaneous tissues and 3-0 Quill for the skin. Dermabond tape was then applied. The patient tolerated the procedure well. There were no complications and the wound bed was dry and there was no need for drain placement. Sterile dressing was then applied and the patient was carefully removed from the operating room table, placed on the stretcher and was taken to the recovery room in stable condition. Sponge and needle counts were correct.
--- NOTE | 2017-03-03 10:38 | XR ---
EXAMINATION TYPE: XR Hip Limited RT DATE OF EXAM: 03/03/2017 CLINICAL HISTORY: Postoperative evaluation TECHNIQUE: Single portable view of the right hip was submitted. FINDINGS: Noted are changes of right femoral hemiarthroplasty. Alignment is anatomic. Postsurgical s oft tissue changes are evident. IMPRESSION: Satisfactory postoperative alignment
[2017-03-03] MEDS: HYDROmorphone 0.5 MG/0.5 ML SYRINGE IVP PRN ×2 (10:50→10:59)
[2017-03-03] MEDS: LACTATED RINGERS 1,000 ML IV SCH (13:11)
[2017-03-03] MEDS: HYDROmorphone 1 MG/ML 1 ML SYRINGE IVP PRN (14:02)
[2017-03-03] MEDS: ceFAZolin IN SWFI 2 GM/20 ML SYRINGE IVP SCH ×2 (16:57→23:28)
[2017-03-03] MEDS ORDERED: ALPRAZolam 0.25 MG TAB PO PRN (17:10)
[2017-03-03] MEDS ORDERED: ONDANSETRON ODT 4 MG TAB PO PRN (17:10)
[2017-03-03] MEDS: HYDROcodone/APAP 5-325MG 1 EACH TAB PO PRN ×2 (17:35→23:24)
[2017-03-03] MEDS: SYMBICORT 160-4.5 MCG INHALER INHALATION PRN (19:48)
[2017-03-03] MEDS: METOCLOPRAMIDE 5 MG TAB PO SCH (21:43)
[2017-03-03] MEDS: SENNOSIDES-DOCUSATE SODIUM 1 EACH TAB PO SCH (21:43)
--- NOTE | 2017-03-03 22:30 | CONS ---
CONSULTATION DATE OF SERVICE: 03/03/2017. REASON FOR CONSULTATION: Advice regarding atrial fibrillation and other medical issues requested by Dr. Moura. HISTORY OF PRESENT ILLNESS: This 71-year-old woman with past medical history of multiple medical problems, including atrial ablation, history of CHF, COPD, CVA, DVT, hypertension, hyperlipidemia being followed by Dr. Mckeon in the outpatient setting was admitted after right total hip arthroplasty. There is no history of chest pain. No history of palpitations. No history of headache, loss of consciousness, seizures. PAST MEDICAL HISTORY: History of atrial fibrillation, CHF, COPD, CVA, TIA, DVT, hypertension, hyperlipidemia, history of DJD. MEDICATIONS PRIOR TO ADMISSION: Include home medications are: 1. Alprazolam 50 mg p.o. daily. 2. Norvasc 5 mg p.o. daily. 3. Aldactone 25 mg p.o. daily. 4. Betapace 80 mg p.o. daily. 5. Protonix 40 mg daily. 6. Zofran 4 mg t.i.d. p.r.n. 7. Reglan 5 mg p.o. t.i.d. 8. Antivert 25 mg p.o. daily. 9. Zestril 10 mg p.r.n. 10.[place] 5 mg 1 tablet every 6 hours p.r.n. 11.Diltiazem 120 mg p.o. daily. 12.Symbicort 160/4.5, 2 puffs b.i.d. 13.Lipitor 40 mg daily. 14.Eliquis 2.5 mg b.i.d. 15.Xanax 0.5 t.i.d. p.r.n. 16.Senokot-S 1 tablet p.o. b.i.d. ALLERGIES: SULFA. FAMILY HISTORY: No history of heart disease or strokes in the family. SOCIAL HISTORY: Previous history, but no history of current smoking or alcohol. REVIEW OF SYSTEMS: ENT: No diminished hearing or diminished vision. CARDIOVASCULAR: No angina, palpitations. RESPIRATORY SYSTEM: No cough or hemoptysis. GI: No nausea. : No dysuria. NERVOUS: No numbness or weakness Allergy none aspect musculoskeletal as mentioned hematology: As mentioned ALLERGY/IMMUNOLOGY: No asthma or hayfever. MUSCULOSKELETAL: As mentioned earlier. HEMATOLOGY/ONCOLOGY: As mentioned earlier. ENDOCRINE: No history of diabetes, hypothyroidism. CONSTITUTIONAL: As mentioned earlier. DERMATOLOGY: Negative. RHEUMATOLOGY: Negative. PSYCHIATRY: As mentioned earlier. PHYSICAL EXAMINATION: Alert oriented x3. Pulse is 69, blood pressure 119/66, respiration 20, temperature is normal, pulse ox is 98% on room air. HEENT: Conjunctivae normal. NECK: No jugular venous distention. CARDIOVASCULAR: S1, S2 muffled. RESPIRATORY: Breath sounds diminished in the bases. Bilateral scattered rhonchi and crackles. ABDOMEN: Soft, nontender. No mass palpable. LEGS: No edema. No swelling. NERVOUS SYSTEM: Higher functions as mentioned earlier. Moves all 4 limbs. No focal motor or sensory deficits. LYMPHATICS: No lymphadenopathy in neck, axillae or groins. SKIN: No ulcer, rash or bleeding. LABS: Labs are not available. ASSESSMENT: 1. Status post right hip arthroplasty. 2. Atrial fibrillation history. 3. History of congestive heart failure history. 4. History of chronic obstructive pulmonary disease. 5. Cerebrovascular accident/transient ischemic attack. 6. History of deep vein thrombosis. 7. Hypertension. 8. Hyperlipidemia. 9. Degenerative joint disease. 10.History of pneumonia. 11.History of cholecystectomy and tonsillectomy. RECOMMENDATIONS AND DISCUSSION: In this 71-year-old woman with a past medical history of multiple medical problems, at this time I recommend to continue current medical management and symptomatic treatment. Otherwise, resume the home medications. I would also recommend to initiate anticoagulation when it is okay with Orthopedic Surgery. Otherwise, we will continue the rest of the medications. Home medication reconciliation done. We will follow the patient closely with you. Thank you, Dr. Moura, for letting us participate in the care of this patient. MMODL / IJN: [id number] /
[2017-03-04] MEDS: HYDROmorphone 1 MG/ML 1 ML SYRINGE IVP PRN ×3 (03:29→16:56)
[2017-03-04 07:33] LABS: Basophils % (A) 0 %; CH 29.6; CHCM 32.4; Eosinophils % (A) 0 %; HCT 29.4 % (34.0-46.0); Luc # (Auto) 0.11; Luc % (Auto) 1; Lymphocytes # (A) 0.9 k/uL (1.0-4.8); Lymphocytes % (A) 8 %; MCH 30.3 pg (25.0-35.0); MCHC 32.9 g/dL (31.0-37.0); Mean Platelet Volume 7.7; Monocytes # (A) 0.9 k/uL (0-1.0); Monocytes % (A) 8 %; Neutrophils % (A) 83 %; RBC 3.19 m/uL (3.80-5.40); RDW 14.3 % (11.5-15.5); WBC (Perox) 12.39
[2017-03-04 07:37] LABS: HGB 9.7 gm/dL (11.4-16.0)
[2017-03-04] MEDS: HYDROcodone/APAP 5-325MG 1 EACH TAB PO PRN (07:47)
[2017-03-04] MEDS: SYMBICORT 160-4.5 MCG INHALER INHALATION PRN (08:52)
[2017-03-04] MEDS ORDERED: hydrALAZINE HCL 50 MG TAB PO SCH (09:00)
[2017-03-04] MEDS ORDERED: SPIRONOLACTONE 25 MG TAB PO SCH (09:00)
[2017-03-04] MEDS ORDERED: amLODIPine 5 MG TAB PO SCH (09:00)
[2017-03-04] MEDS ORDERED: HYDROcodone/APAP 10-325MG 1 EACH TAB PO PRN (09:05)
--- NOTE | 2017-03-04 09:05 | P.PN ---
Subjective Progress Note Date: 03/04/17 Principal diagnosis: Status post right total hip arthroplasty This is a 71 year-old female post total hip arthroplasty. This is post-op day 1. The patient was evaluated at the bedside today. The patient denies nausea, vomiting, abdominal pain, shortness of breath, and chest pain this morning. She states her pain is moderately controlled at this time. The patient has not been up with physical therapy but has ambulated to the bathroom this morning. Objective - Vital Signs Vital signs: Vital Signs Temp 97.4 F L 03/04/17 00:18 Pulse 64 03/04/17 08:00 Resp 16 03/04/17 08:00 BP 102/57 03/04/17 00:18 Pulse Ox 98 03/04/17 00:18 Intake & Output 03/03/17 03/04/17 03/04/17 18:59 06:59 18:59 Intake Total 1001 2080 Output Total 250 Balance 751 2080 Weight 90.718 kg 90.718 kg Intake: IV 1001 1600 Lactated Ringers 1,000 ml 300 1600 @ 100 mls/hr IV .Q10H [facility] Rx#:[id number] Oral 480 Output: Estimated Blood Loss 250 Other: Voiding Method Toilet Toilet - Exam The patient does not appear in acute distress. Alert and orientated x3. Dressing is clean dry and intact. Incision appears fine with no erythema or active drainage. Calf is soft and nontender. Good foot and ankle motion without difficulty. Sensation and circulatory status is intact. - Labs CBC & Chem 7: 03/04/17 06:59 Labs: Abnormal Lab Results - Last 24 Hours (Table) 03/04/17 Range/Units 06:59 WBC 11.0 H (3.8-10.6) k/uL RBC 3.19 L (3.80-5.40) m/uL Hgb 9.7 L D (11.4-16.0) gm/dL Hct 29.4 L (34.0-46.0) % Neutrophils # 9.0 H (1.3-7.7) k/uL Lymphocytes # 0.9 L (1.0-4.8) k/uL Assessment and Plan (1) Primary localized osteoarthritis of right hip Current Visit: Yes Status: Acute Code(s): M16.11 - UNILATERAL PRIMARY OSTEOARTHRITIS, RIGHT HIP SNOMED Code(s): 843020966 (2) Status post total hip replacement, right Current Visit: Yes Status: Acute Code(s): Z96.641 - PRESENCE OF RIGHT ARTIFICIAL HIP JOINT SNOMED Code(s): 511308924055 Plan: 1. Continue pain control, increase to [place] 10 2. Anticoagulation with Eliquis 3. Continue physical therapy and ambulation 4. Anticipate discharge home with homecare tomorrow.
[2017-03-04] MEDS: LACTATED RINGERS 1,000 ML IV SCH ×3 (09:16→10:55)
[2017-03-04] MEDS: PANTOPRAZOLE 40 MG TABLET PO SCH (10:11)
[2017-03-04] MEDS: ATORVASTATIN 40 MG TAB PO SCH (10:30)
[2017-03-04] MEDS: SOTALOL 80 MG TAB PO SCH (10:31)
[2017-03-04] MEDS: METOCLOPRAMIDE 5 MG TAB PO SCH ×3 (10:32→22:11)
[2017-03-04] MEDS: MECLIZINE 25 MG TAB PO SCH (10:32)
[2017-03-04] MEDS: DILTIAZEM CD 120 MG CAP.ER.24H PO SCH (10:32)
[2017-03-04] MEDS: MELOXICAM 7.5 MG TAB PO SCH (10:33)
[2017-03-04] MEDS: APIXABAN 2.5 MG TABLET PO SCH ×2 (10:34→20:26)
[2017-03-04] MEDS: LISINOPRIL 10 MG TAB PO SCH (10:37)
[2017-03-04] MEDS: HYDROcodone/APAP 10-325MG 1 EACH TAB PO PRN ×2 (14:04→20:25)
--- NOTE | 2017-03-04 14:23 | P.PN ---
Subjective 71-year-old female was admitted for right hip arthroplasty patient Tim underwent surgery patient is otherwise clinically doing well no overnight events. Constitutional: Denied any fatigue denied any fever. Cardio vascular: denied any chest pain, palpitations Gastrointestinal denied any nausea vomiting Pulmonary: Denied any shortness of breath cough Neurologic denied any new focal deficits Objective - Vital Signs Vital signs: Vital Signs Temp 97.4 F L 03/04/17 00:18 Pulse 63 03/04/17 12:30 Resp 17 03/04/17 10:47 BP 113/58 03/04/17 12:30 Pulse Ox 98 03/04/17 00:18 Intake & Output 03/03/17 03/04/17 03/04/17 18:59 06:59 18:59 Intake Total 1001 2080 Output Total 250 Balance 751 2080 Weight 90.718 kg 90.718 kg Intake: IV 1001 1600 Lactated Ringers 1,000 ml 300 1600 @ 100 mls/hr IV .Q10H [facility] Rx#:[id number] Oral 480 Output: Estimated Blood Loss 250 Other: Voiding Method Toilet Toilet Toilet - Exam PHYSICAL EXAMINATION: GENERAL: The patient is alert and oriented x3, not in any acute distress. Well developed, well nourished. HEENT: Pupils are round and equally reacting to light. EOMI. No scleral icterus. No conjunctival pallor. Normocephalic, atraumatic. No pharyngeal erythema. No thyromegaly. CARDIOVASCULAR: S1 and S2 present. No murmurs, rubs, or gallops. PULMONARY: Chest is clear to auscultation, no wheezing or crackles. ABDOMEN: Soft, nontender, nondistended, normoactive bowel sounds. No palpable organomegaly. MUSCULOSKELETAL: Deferred to orthopedic surgery EXTREMITIES: No cyanosis, clubbing, or pedal edema. NEUROLOGICAL: Gross neurological examination did not reveal any focal deficits. SKIN: No rashes. - Labs CBC & Chem 7: 03/04/17 06:59 Labs: Abnormal Lab Results - Last 24 Hours (Table) 03/04/17 Range/Units 06:59 WBC 11.0 H (3.8-10.6) k/uL RBC 3.19 L (3.80-5.40) m/uL Hgb 9.7 L D (11.4-16.0) gm/dL Hct 29.4 L (34.0-46.0) % Neutrophils # 9.0 H (1.3-7.7) k/uL Lymphocytes # 0.9 L (1.0-4.8) k/uL Assessment and Plan Plan: #1 right hip arthroplasty: Patient postoperatively doing clinically well. Due to prophylaxis and pain management as per primary service. #2 atrial fibrillation: Rate controlled patient is another course which will be continued. #3 COPD without any acute exacerbation. #4 hypertension patient is actually hypotensive because of which I'll hold off on amlodipine and will also hold off on hydralazine. #5 hyperlipidemia
[2017-03-04] MEDS: SENNOSIDES-DOCUSATE SODIUM 1 EACH TAB PO SCH (20:26)
[2017-03-05] MEDS ORDERED: HYDROcodone/APAP 10-325MG 1 EACH TAB ONE (02:45)
[2017-03-05] MEDS: SYMBICORT 160-4.5 MCG INHALER INHALATION PRN ×2 (07:32→21:35)
--- NOTE | 2017-03-05 07:57 | P.PN ---
Subjective Progress Note Date: 03/05/17 Principal diagnosis: Primary osteoarthritis right hip Status post total right hip arthroplasty This is a pleasant 71-year-old female who is status post total right hip arthroplasty. She is doing well from an orthopedic standpoint. She has no new complaints or concerns today. Vital signs are stable. Objective - Vital Signs Vital signs: Vital Signs Temp 98.2 F 03/05/17 00:24 Pulse 60 03/05/17 00:24 Resp 16 03/05/17 00:24 BP 99/64 03/05/17 00:24 Pulse Ox 95 03/05/17 00:24 Intake & Output 03/04/17 03/05/17 03/05/17 18:59 06:59 18:59 Intake Total 1000 1200 Balance 1000 1200 Weight 90.718 kg Intake: IV 1000 Lactated Ringers 1,000 ml 1000 @ 100 mls/hr IV .Q10H [facility] Rx#:[id number] Oral 1200 Other: Voiding Method Toilet Toilet # Voids 2 4 - Exam This is a pleasant 71-year-old female in no acute distress. She is alert and oriented 3. Exam of the right lower extremity reveals that her dressing is clean, dry and intact. She has full foot and ankle motion without difficulty or pain. There is no Pain with palpation or with motion. Neurovascular status to the lower extremities intact. - Labs CBC & Chem 7: 03/04/17 06:59 Assessment and Plan (1) Primary localized osteoarthritis of right hip Current Visit: Yes Status: Acute Code(s): M16.11 - UNILATERAL PRIMARY OSTEOARTHRITIS, RIGHT HIP SNOMED Code(s): 630171368 (2) Status post total hip replacement, right Current Visit: Yes Status: Acute Code(s): Z96.641 - PRESENCE OF RIGHT ARTIFICIAL HIP JOINT SNOMED Code(s): 101892153543 Plan: The clinical findings are discussed the patient. She may be discharged to inpatient rehab tomorrow if cleared medically.
[2017-03-05] MEDS: HYDROcodone/APAP 10-325MG 1 EACH TAB PO PRN ×3 (08:24→20:21)
[2017-03-05] MEDS: PANTOPRAZOLE 40 MG TABLET PO SCH (08:24)
[2017-03-05] MEDS: METOCLOPRAMIDE 5 MG TAB PO SCH ×3 (08:26→23:05)
[2017-03-05] MEDS: DILTIAZEM CD 120 MG CAP.ER.24H PO SCH (09:32)
[2017-03-05] MEDS: APIXABAN 2.5 MG TABLET PO SCH ×2 (09:32→22:10)
[2017-03-05] MEDS: MELOXICAM 7.5 MG TAB PO SCH (09:33)
[2017-03-05] MEDS: MECLIZINE 25 MG TAB PO SCH (09:33)
[2017-03-05] MEDS: ATORVASTATIN 40 MG TAB PO SCH (09:34)
[2017-03-05] MEDS: LISINOPRIL 10 MG TAB PO SCH (09:34)
[2017-03-05] MEDS: SOTALOL 80 MG TAB PO SCH (09:34)
--- NOTE | 2017-03-05 12:30 | P.PN ---
Subjective 71-year-old female was admitted for right hip arthroplasty patient underwent surgery patient is otherwise clinically doing well no overnight events. Mar 05 2017 Patient blood pressure is on the low normal side otherwise no other issues patient is on 2 calcium channel blockers amlodipine will be discussed continued and patient will be continued on diltiazem, I do not see a reason for his prior no aldactone patient had normal ejection fraction, aldactone will be discontinued Constitutional: Denied any fatigue denied any fever. Cardio vascular: denied any chest pain, palpitations Gastrointestinal denied any nausea vomiting Pulmonary: Denied any shortness of breath cough Neurologic denied any new focal deficits Objective - Vital Signs Vital signs: Vital Signs Temp 98.1 F 03/05/17 08:15 Pulse 72 03/05/17 09:08 Resp 18 03/05/17 09:08 BP 114/71 03/05/17 08:15 Pulse Ox 95 03/05/17 00:24 Intake & Output 03/04/17 03/05/17 03/05/17 18:59 06:59 18:59 Intake Total 1000 1200 Balance 1000 1200 Weight 90.718 kg Intake: IV 1000 Lactated Ringers 1,000 ml 1000 @ 100 mls/hr IV .Q10H MIRANDA Rx#:[id number] Oral 1200 Other: Voiding Method Toilet Toilet Toilet # Voids 2 4 - Exam PHYSICAL EXAMINATION: GENERAL: The patient is alert and oriented x3, not in any acute distress. Well developed, well nourished. HEENT: Pupils are round and equally reacting to light. EOMI. No scleral icterus. No conjunctival pallor. Normocephalic, atraumatic. No pharyngeal erythema. No thyromegaly. CARDIOVASCULAR: S1 and S2 present. No murmurs, rubs, or gallops. PULMONARY: Chest is clear to auscultation, no wheezing or crackles. ABDOMEN: Soft, nontender, nondistended, normoactive bowel sounds. No palpable organomegaly. MUSCULOSKELETAL: Deferred to orthopedic surgery EXTREMITIES: No cyanosis, clubbing, or pedal edema. NEUROLOGICAL: Gross neurological examination did not reveal any focal deficits. SKIN: No rashes. - Labs CBC & Chem 7: 03/04/17 06:59 Assessment and Plan Plan: #1 right hip arthroplasty: Patient postoperatively doing clinically well. Due to prophylaxis and pain management as per primary service. #2 atrial fibrillation: Rate controlled patient is another course which will be continued. #3 COPD without any acute exacerbation. #4 hypertension patient is actually hypotensive amlodipine, hydralazine, aldactone will be discontinued #5 hyperlipidemia
[2017-03-05 12:38] LABS: Anion Gap 11 mmol/L; Blood Urea Nitrogen 26 mg/dL (7-17); Calcium 8.7 mg/dL (8.4-10.2); Carbon Dioxide 19 mmol/L (22-30); Chloride 106 mmol/L (98-107); Glucose 111 mg/dL (74-99); Non-African American GFR(MDRD) 55 (>60 ml/min/1.73 sqM); Potassium 4.5 mmol/L (3.5-5.1); Sodium 136 mmol/L (137-145)
[2017-03-05 16:33] VITALS: RESP 16
[2017-03-05] MEDS: SENNOSIDES-DOCUSATE SODIUM 1 EACH TAB PO SCH (22:09)
[2017-03-06] MEDS: HYDROcodone/APAP 10-325MG 1 EACH TAB PO PRN ×3 (01:20→12:47)
[2017-03-06 07:18] LABS: Basophils % (A) 0 %; CH 30.8; CHCM 33.3; Eosinophils # (A) 0.2 k/uL (0-0.7); Eosinophils % (A) 3 %; HCT 31.9 % (34.0-46.0); HDW 2.41; HGB 10.4 gm/dL (11.4-16.0); Luc # (Auto) 0.14; Luc % (Auto) 2; Lymphocytes # (A) 1.4 k/uL (1.0-4.8); Lymphocytes % (A) 16 %; MCH 30.2 pg (25.0-35.0); MCHC 32.5 g/dL (31.0-37.0); MCV 92.9 fL (80.0-100.0); Mean Platelet Volume 7.4; Monocytes # (A) 0.7 k/uL (0-1.0); Monocytes % (A) 8 %; Neutrophils % (A) 71 %; RBC 3.43 m/uL (3.80-5.40); RDW 13.6 % (11.5-15.5); WBC 8.5 k/uL (3.8-10.6); WBC (Perox) 8.87
[2017-03-06 08:24] LABS: Anion Gap 9 mmol/L; Blood Urea Nitrogen 27 mg/dL (7-17); Calcium 8.9 mg/dL (8.4-10.2); Carbon Dioxide 23 mmol/L (22-30); Chloride 108 mmol/L (98-107); Glucose 87 mg/dL (74-99); Non-African American GFR(MDRD) >60 (>60 ml/min/1.73 sqM); Potassium 4.9 mmol/L (3.5-5.1); Sodium 140 mmol/L (137-145)
[2017-03-06] MEDS: MECLIZINE 25 MG TAB PO SCH (08:39)
[2017-03-06] MEDS: ATORVASTATIN 40 MG TAB PO SCH (08:39)
[2017-03-06] MEDS: APIXABAN 2.5 MG TABLET PO SCH (08:39)
[2017-03-06] MEDS: METOCLOPRAMIDE 5 MG TAB PO SCH (08:39)
[2017-03-06] MEDS: SOTALOL 80 MG TAB PO SCH (08:39)
--- NOTE | 2017-03-06 08:39 | P.DS ---
Providers Date of admission: 03/03/17 06:42 Expected date of discharge: 03/06/17 Attending physician: Aramis Moura Consults: 03/03/17 10:18 Consult Physician Routine Consulting Provider: Shannon Arriaga Consult Reason/Comments: medical management Do you want consulting provider notified?: Yes Primary care physician: Paige Mckeon - Discharge Diagnosis(es) (1) Primary localized osteoarthritis of right hip Current Visit: Yes Status: Acute (2) Status post total hip replacement, right Current Visit: Yes Status: Acute Hospital Course: This is a 71-year-old female with known history of degenerative arthritis of the right hip. The patient presents for evaluation. After discussion and consideration patient elects to proceed with total hip arthroplasty. The patient is seen preoperatively by her primary care physician and cleared for surgery. Patient is admitted to [facility] on 03/03/2017 for total hip arthroplasty. The procedures performed without complication or sequelae. The patient is doing well postoperatively. Labs and vital signs are stable on day of discharge. On day of discharge patient's hip incision is healing well. There is minimal erythema. There is no drainage noted at this time. There is minimal soft tissue swelling to the hip and thigh. Patient has full foot and ankle motion without difficulty or pain. Neurovascular status to the right lower extremity is intact. Patient is discharged to home in good condition. Please see med rec for accurate list of home medications. Patient Condition at Discharge: Good Plan - Discharge Summary Discharge Rx Participant: Yes New Discharge Prescriptions: New Sennosides-Docusate Sodium [Senokot-S] 1 tab PO BID #60 tablet HYDROcodone/APAP 10-325MG [[place] 10-325] 1 - 2 tab PO Q4-6H PRN #90 tab PRN Reason: Pain Discontinued Spironolactone [Aldactone] 25 mg PO DAILY #30 tab hydrALAZINE HCL [Apresoline] 50 mg PO DAILY amLODIPine [Norvasc] 5 mg PO DAILY HYDROcodone/APAP 5-325MG [[place] 5-325] 1 - 2 tab PO Q6HR PRN PRN Reason: Pain No Action ALPRAZolam [Xanax] 0.25 mg PO TID PRN PRN Reason: Anxiety Pantoprazole Sodium [Protonix] 40 mg PO DAILY Ondansetron Odt [Zofran ODT] 4 mg PO TID PRN PRN Reason: Nausea Apixaban [Eliquis] 2.5 mg PO BID Sotalol [Betapace] 80 mg PO DAILY Lisinopril [Zestril] 10 mg PO QAM Metoclopramide HCl [Reglan] 5 mg PO TID Meclizine [Antivert] 25 mg PO DAILY Diltiazem HCl [Diltiazem 24Hr ER] 120 mg PO QAM Atorvastatin [Lipitor] 40 mg PO DAILY Budesonide-Formot 160-4.5 Mcg [Symbicort 160-4.5 Mcg Inhaler] 2 puff INHALATION RT-BID PRN PRN Reason: Shortness Of Breath Discharge Medication List ALPRAZolam [Xanax] 0.25 mg PO TID PRN 05/15/15 [History] Apixaban [Eliquis] 2.5 mg PO BID 05/15/15 [History] Ondansetron Odt [Zofran ODT] 4 mg PO TID PRN 05/15/15 [History] Pantoprazole Sodium [Protonix] 40 mg PO DAILY 05/15/15 [History] Sotalol [Betapace] 80 mg PO DAILY 12/15/15 [History] Lisinopril [Zestril] 10 mg PO QAM 01/15/16 [History] Atorvastatin [Lipitor] 40 mg PO DAILY 12/20/16 [History] Budesonide-Formot 160-4.5 Mcg [Symbicort 160-4.5 Mcg Inhaler] 2 puff INHALATION RT-BID PRN 12/20/16 [History] Diltiazem HCl [Diltiazem 24Hr ER] 120 mg PO QAM 12/20/16 [History] Meclizine [Antivert] 25 mg PO DAILY 12/20/16 [History] Metoclopramide HCl [Reglan] 5 mg PO TID 12/20/16 [History] Sennosides-Docusate Sodium [Senokot-S] 1 tab PO BID #60 tablet 03/03/17 [Rx] HYDROcodone/APAP 10-325MG [[place] 10-325] 1 - 2 tab PO Q4-6H PRN #90 tab [Rx] Follow up Appointment(s)/Referral(s): Ade Carranza, PAC [PHYSICIAN [employer]] - 2 Weeks Activity/Diet/Wound Care/Special Instructions: Toe touch weight bearing Right lower extremity with walker. May shower if no drainage from incision. Medical to manage anticoagulation. Posterior hip precautions. Discharge Disposition: TRANSFER TO SNF/ECF
[2017-03-06] MEDS: DILTIAZEM CD 120 MG CAP.ER.24H PO SCH (08:40)
[2017-03-06] MEDS: PANTOPRAZOLE 40 MG TABLET PO SCH (08:40)
[2017-03-06] MEDS: MELOXICAM 7.5 MG TAB PO SCH (08:41)
[2017-03-06 08:49] VITALS: BP 111/66; PULSE 74; TEMP 97.6
[2017-03-06] MEDS: SYMBICORT 160-4.5 MCG INHALER INHALATION PRN (08:51)
[2017-03-06] MEDS ORDERED: HYDROmorphone 0.5 MG/0.5 ML SYRINGE IVP PRN ×3 (09:18)
--- NOTE | 2017-03-06 13:19 | P.PN ---
Subjective Progress Note Date: 03/06/17 progress note being dictated for Dr. Bright Interval history:71-year-old female was admitted for right hip arthroplasty patient underwent surgery patient is otherwise clinically doing well no overnight events. Mar 05 2017 Patient blood pressure is on the low normal side otherwise no other issues patient is on 2 calcium channel blockers amlodipine will be discussed continued and patient will be continued on diltiazem, I do not see a reason for his prior no aldactone patient had normal ejection fraction, aldactone will be discontinued Constitutional: Denied any fatigue denied any fever. Cardio vascular: denied any chest pain, palpitations Gastrointestinal denied any nausea vomiting Pulmonary: Denied any shortness of breath cough Neurologic denied any new focal deficits 03/06/2017 sitting up in chair, pain controlled. Positive bowel movement. Good diet intake with no nausea or vomiting. TONA inhibitor remains on hold for borderline hypotension. denies lightheadedness dizziness or focal deficits. Denies chest pain, palpitations or increasing shortness of breath. Being discharged to subacute rehab today as per orthopedics. Objective - Vital Signs Vital signs: Vital Signs Temp 97.6 F 03/06/17 07:00 Pulse 74 03/06/17 07:00 Resp 16 03/06/17 07:00 BP 111/66 03/06/17 07:00 Pulse Ox 93 L 03/06/17 07:00 Intake & Output 03/05/17 03/06/17 03/06/17 18:59 06:59 18:59 Intake Total 500 250 280 Balance 500 250 280 Intake: Oral 500 250 280 Other: Voiding Method Toilet # Voids 2 1 - Exam GENERAL: The patient is alert and oriented x3, not in any acute distress. Well developed, well nourished. HEENT: Pupils are round and equally reacting to light. EOMI. No scleral icterus. No conjunctival pallor. Normocephalic, atraumatic. No pharyngeal erythema. No thyromegaly. CARDIOVASCULAR: S1 and S2 present. No murmurs, rubs, or gallops. PULMONARY: Chest is clear to auscultation, no wheezing or crackles. ABDOMEN: Soft, nontender, nondistended, normoactive bowel sounds. No palpable organomegaly. MUSCULOSKELETAL: Deferred to orthopedic surgery EXTREMITIES: No cyanosis, clubbing, or pedal edema. NEUROLOGICAL: Gross neurological examination did not reveal any focal deficits. SKIN: No rashes. - Labs CBC & Chem 7: 03/06/17 06:58 03/06/17 06:58 Labs: Abnormal Lab Results - Last 24 Hours (Table) 03/06/17 03/06/17 Range/Units 06:58 06:58 RBC 3.43 L (3.80-5.40) m/uL Hgb 10.4 L (11.4-16.0) gm/dL Hct 31.9 L (34.0-46.0) % Chloride 108 H (98-107) mmol/L BUN 27 H (7-17) mg/dL Assessment and Plan Assessment: #1 right hip arthroplasty: Patient postoperatively doing clinically well. DVT prophylaxis and pain management as per primary service. #2 atrial fibrillation: Rate controlled patient is another course which will be continued.anticoagulated on Eliquis #3 COPD without any acute exacerbation. #4 hypertension patient is actually hypotensive amlodipine, hydralazine, aldactone will be discontinued #5 hyperlipidemia plan: Continue current medication regime ,monitoring and symptomatic treatment. Patient is awaiting discharge to subacute rehab. Maintain aggressive pulmonary toileting.anticoagulated on Eliquis, pain management as per orthopedics. The impression and plan of care has been dictated as directed. : I performed a history and examination of this patient, discussed the same with the dictator. I agree with the dictator's note ,documented as a scribe. Any additional findings or plans will be noted.
== END 2017-03-06 12:50 | DRG 470 ==
LOC: 2ORMAIN 06:42 → 3SUR 10:43
PROVIDERS: ADMIT Orthopaedic Surgery; ATTEND Orthopaedic Surgery
PROC: 0SR902A Replacement of Right Hip Joint with Metal on Polyethylene Synthetic Substitute, Uncemented, Open Approach (ICD-10-PCS; principal; 2017-03-03 08:00)
DX: M16.11 Unilateral primary osteoarthritis, right hip (principal); M87.9 Osteonecrosis, unspecified; I11.0 Hypertensive heart disease with heart failure; I95.9 Hypotension, unspecified; I50.9 Heart failure, unspecified; I48.0 Paroxysmal atrial fibrillation; J44.9 Chronic obstructive pulmonary disease, unspecified; E78.5 Hyperlipidemia, unspecified; Z79.01 Long term (current) use of anticoagulants; Z79.51 Long term (current) use of inhaled steroids; Z79.899 Other long term (current) drug therapy; Z86.73 Personal history of transient ischemic attack (TIA), and cerebral infarction without residual deficits; Z86.718 Personal history of other venous thrombosis and embolism; Z88.2 Allergy status to sulfonamides; Z85.72 Personal history of non-Hodgkin lymphomas; Z87.891 Personal history of nicotine dependence
CPT/HCPCS: 73501; 80048; 85025; 86850; 86900; 86901; 88305; 88311; 94640

== ENCOUNTER 2017-05-14 11:40 | Inpatient (IN) | payer MEDICARE, BC ==
[2017-05-14] MEDS ORDERED: SODIUM CHLORIDE 0.9% 1,000 ML IV STA (12:11)
[2017-05-14] MEDS ORDERED: ASPIRIN 81 MG PO STA (12:11)
[2017-05-14] MEDS ORDERED: METOCLOPRAMIDE 5 MG/ML 2 ML VIAL IVP STA (12:13)
[2017-05-14] MEDS ORDERED: FAMOTIDINE 20 MG/2 ML VIAL IV STA (12:13)
[2017-05-14] MEDS ORDERED: MORPHINE SULFATE 2 MG/ML SYRINGE IVP STA (12:13)
[2017-05-14] MEDS ORDERED: SODIUM CHLORIDE 0.9% 250 ML IV STA (12:14)
--- NOTE | 2017-05-14 12:20 | ED ---
General Adult HPI - General Chief complaint: Nausea/Vomiting/Diarrhea Stated complaint: vomiting Time Seen by Provider: 05/14/17 11:44 Source: patient, EMS, RN notes reviewed Mode of arrival: EMS Limitations: no limitations - History of Present Illness Initial comments: Patient is a pleasant 72-year-old female presenting to the emergency Department with vomiting and chest discomfort. Patient does have chronic vomiting. Symptoms have been worse especially today. Patient does have chest pain which she believes is likely from the vomiting. Patient has previously had similar chest pain associated with vomiting. Patient does have a history of atrial fibrillation and is on blood thinners for this. Patient did have hip surgery done a couple of months ago and states it is healing fine. No leg pain or leg swelling. patient has some mild dyspnea. Patient does feel dehydrated. - Related Data Home Medications Medication Instructions Recorded Confirmed Ondansetron Odt [Zofran ODT] 4 mg PO Q8H PRN 05/15/15 05/14/17 Pantoprazole Sodium [Protonix] 40 mg PO DAILY 05/15/15 05/14/17 Meclizine [Antivert] 25 mg PO DAILY 12/20/16 05/14/17 Metoclopramide HCl [Reglan] 5 mg PO TID 12/20/16 05/14/17 Fluticasone/Vilanterol [Breo 1 puff INHALATION RT-DAILY 04/01/17 05/14/17 Ellipta 200-25 Mcg INH] Sennosides-Docusate Sodium 1 tab PO BID PRN 04/10/17 05/14/17 [Senokot-S] Apixaban [Eliquis] 2.5 mg PO BID 05/14/17 05/14/17 traMADol HCl [Ultram] 50 mg PO QID PRN 05/14/17 05/14/17 Previous Rx's Medication Instructions Recorded Furosemide [Lasix] 40 mg PO DAILY #30 tab 04/07/17 Lisinopril [Zestril] 5 mg PO DAILY #30 tab 04/07/17 ALPRAZolam [Xanax] 0.25 mg PO Q8H PRN #20 tablet 04/15/17 Atorvastatin [Lipitor] 40 mg PO HS tab 04/15/17 HYDROcodone/APAP 10-325MG [[place] 1 tab PO Q4H PRN #60 tab 04/15/17 10-325] Metoprolol Tartrate [Lopressor] 50 mg PO BID #60 tab 04/15/17 Nitroglycerin Sl Tabs [Nitrostat] 0.4 mg SUBLINGUAL Q5M PRN #20 tab 04/15/17 cloNIDine HCL [Catapres] 0.1 mg PO TID #90 tab 04/15/17 Allergies Allergy/AdvReac Type Severity Reaction Status Date / Time Sulfa (Sulfonamide Allergy Anaphylaxis Verified 05/14/17 12:16 Antibiotics) Review of Systems ROS Statement: Those systems with pertinent positive or pertinent negative responses have been documented in the HPI. ROS Other: All systems not noted in ROS Statement are negative. Constitutional: Denies: fever Eyes: Denies: eye pain ENT: Denies: ear pain Respiratory: Denies: cough Cardiovascular: Reports: chest pain Endocrine: Reports: fatigue Gastrointestinal: Reports: nausea, vomiting. 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 Peripheral vascular disease with a previous history of iliac artery stenting History of Any Multi-Drug Resistant Organisms: None Reported Past Surgical History: Cholecystectomy, Joint Replacement, Tonsillectomy Additional Past Surgical History / Comment(s): Small bowel resection for resection of a MALT tumor, cataract surgery in the right eye, tooth extraction, right hip ORIF, tonsillectomy, cholecystectomy, cardiac catheterization back in 2015, iliac artery stenting, EGD. Past Anesthesia/Blood Transfusion Reactions: No Reported Reaction Past Psychological History: No Psychological Hx Reported Smoking Status: Former smoker Past Alcohol Use History: None Reported Past Drug Use History: None Reported - Past Family History Mother Family Medical History: No Reported History Additional Family Medical History / Comment(s): . Father History Unknown: Yes General Exam Limitations: no limitations General appearance: alert Head exam: Present: atraumatic Eye exam: Present: normal appearance, PERRL ENT exam: Present: normal oropharynx Neck exam: Present: normal inspection Respiratory exam: Present: normal lung sounds bilaterally Cardiovascular Exam: Present: tachycardia, irregular rhythm GI/Abdominal exam: Present: soft. Absent: tenderness Extremities exam: Present: normal inspection. Absent: pedal edema, calf tenderness Neurological exam: Present: alert Psychiatric exam: Present: normal affect, normal mood Skin exam: Present: normal color Course Vital Signs 05/14/17 05/14/17 12:05 13:34 Temperature 97.8 F Pulse Rate 138 H 138 H Respiratory 24 20 Rate Blood Pressure 225/94 226/101 O2 Sat by Pulse 98 97 Oximetry EKG Findings - EKG Comments: EKG Findings:: narrow complex tachycardia with a rate of 144, suspicious for atrial fibrillation. AK 112. QRS 74. QT 314. QTC 46. Left axis. Normal QRS. Some ST depression is present. Medical Decision Making - Medical Decision Making Cardizem has been increased. Cardizem bolus has been provided. Patient reevaluated and updated. Heart rate remains elevated. Case was discussed with practitioner Kristina, who will admit for Dr. Costa, who admits for Dr. Mckeon. - Lab Data Result diagrams: 05/14/17 12:00 05/14/17 12:00 Lab Results 05/14/17 05/14/17 05/14/17 Range/Units 12:00 12:00 12:00 WBC 19.7 H (3.8-10.6) k/uL RBC 4.41 (3.80-5.40) m/uL Hgb 13.0 D (11.4-16.0) gm/dL Hct 39.9 (34.0-46.0) % MCV 90.4 (80.0-100.0) fL MCH 29.5 (25.0-35.0) pg MCHC 32.6 (31.0-37.0) g/dL RDW 14.6 (11.5-15.5) % Plt Count 334 (150-450) k/uL Neutrophils % 91 % Lymphocytes % 5 % Monocytes % 3 % Eosinophils % 0 % Basophils % 0 % Neutrophils # 17.9 H (1.3-7.7) k/uL Lymphocytes # 1.1 (1.0-4.8) k/uL Monocytes # 0.5 (0-1.0) k/uL Eosinophils # 0.1 (0-0.7) k/uL Basophils # 0.0 (0-0.2) k/uL PT (9.0-12.0) sec INR (<1.2) APTT (22.0-30.0) sec Sodium 144 (137-145) mmol/L Potassium 4.1 (3.5-5.1) mmol/L Chloride 107 (98-107) mmol/L Carbon Dioxide 20 L (22-30) mmol/L Anion Gap 17 mmol/L BUN 23 H (7-17) mg/dL Creatinine 0.90 (0.52-1.04) mg/dL Est GFR (MDRD) Af Amer >60 (>60 ml/min/1.73 sqM) Est GFR (MDRD) Non-Af >60 (>60 ml/min/1.73 sqM) Glucose 183 H (74-99) mg/dL Calcium 9.5 (8.4-10.2) mg/dL Magnesium 1.5 L (1.6-2.3) mg/dL Total Bilirubin 1.2 (0.2-1.3) mg/dL AST 29 (14-36) U/L ALT 32 (9-52) U/L Alkaline Phosphatase 156 H (38-126) U/L Total Creatine Kinase 36 (30-135) U/L CK-MB (CK-2) 1.1 (0.0-2.4) ng/mL CK-MB (CK-2) Rel Index 3.1 Troponin I 0.023 (0.000-0.034) ng/mL Total Protein 7.1 (6.3-8.2) g/dL Albumin 4.0 (3.5-5.0) g/dL Amylase 46 (30-110) U/L Lipase 55 (23-300) U/L TSH 1.010 (0.465-4.680) mIU/L Free T4 1.99 (0.78-2.19) ng/dL Free T3 pg/mL 3.9 (2.8-5.3) pg/ml 05/14/17 Range/Units 12:00 WBC (3.8-10.6) k/uL RBC (3.80-5.40) m/uL Hgb (11.4-16.0) gm/dL Hct (34.0-46.0) % MCV (80.0-100.0) fL MCH (25.0-35.0) pg MCHC (31.0-37.0) g/dL RDW (11.5-15.5) % Plt Count (150-450) k/uL Neutrophils % % Lymphocytes % % Monocytes % % Eosinophils % % Basophils % % Neutrophils # (1.3-7.7) k/uL Lymphocytes # (1.0-4.8) k/uL Monocytes # (0-1.0) k/uL Eosinophils # (0-0.7) k/uL Basophils # (0-0.2) k/uL PT 10.0 (9.0-12.0) sec INR 1.0 (<1.2) APTT 19.1 L (22.0-30.0) sec Sodium (137-145) mmol/L Potassium (3.5-5.1) mmol/L Chloride (98-107) mmol/L Carbon Dioxide (22-30) mmol/L Anion Gap mmol/L BUN (7-17) mg/dL Creatinine (0.52-1.04) mg/dL Est GFR (MDRD) Af Amer (>60 ml/min/1.73 sqM) Est GFR (MDRD) Non-Af (>60 ml/min/1.73 sqM) Glucose (74-99) mg/dL Calcium (8.4-10.2) mg/dL Magnesium (1.6-2.3) mg/dL Total Bilirubin (0.2-1.3) mg/dL AST (14-36) U/L ALT (9-52) U/L Alkaline Phosphatase (38-126) U/L Total Creatine Kinase (30-135) U/L CK-MB (CK-2) (0.0-2.4) ng/mL CK-MB (CK-2) Rel Index Troponin I (0.000-0.034) ng/mL Total Protein (6.3-8.2) g/dL Albumin (3.5-5.0) g/dL Amylase (30-110) U/L Lipase (23-300) U/L TSH (0.465-4.680) mIU/L Free T4 (0.78-2.19) ng/dL Free T3 pg/mL (2.8-5.3) pg/ml - Radiology Data Radiology results: report reviewed (Chest x-ray reported as no acute process. films are unable to be viewed at this time.) Critical Care Time Critical Care Time: Yes Total Critical Care Time: 33 Disposition Clinical Impression: Atrial fibrillation with rapid ventricular response, Acute vomiting, Chest pain Disposition: ADMITTED IP TO THIS [facility] Condition: Serious Referrals: Paige Mckeon MD [Primary Care Provider] - 1-2 days Decision Time: 13:40
[2017-05-14 12:23] LABS: Basophils % (A) 0 %; Eosinophils # (A) 0.1 k/uL (0-0.7); Eosinophils % (A) 0 %; HCT 39.9 % (34.0-46.0); Lymphocytes # (A) 1.1 k/uL (1.0-4.8); Lymphocytes % (A) 5 %; MCH 29.5 pg (25.0-35.0); MCHC 32.6 g/dL (31.0-37.0); MCV 90.4 fL (80.0-100.0); Mean Platelet Volume 6.6; Monocytes # (A) 0.5 k/uL (0-1.0); Monocytes % (A) 3 %; Neutrophils # (A) 17.9 k/uL (1.3-7.7); Neutrophils % (A) 91 %; Platelet Count 334 k/uL (150-450); RBC 4.41 m/uL (3.80-5.40); RDW 14.6 % (11.5-15.5); WBC 19.7 k/uL (3.8-10.6)
[2017-05-14 12:39] LABS: Partial Thromboplastin Time 19.1 sec (22.0-30.0)
[2017-05-14 12:40] LABS: ALT 32 U/L (9-52); AST 29 U/L (14-36); Alkaline Phosphatase 156 U/L (38-126); Amylase 46 U/L (30-110); Anion Gap 17 mmol/L; Blood Urea Nitrogen 23 mg/dL (7-17); Calcium 9.5 mg/dL (8.4-10.2); Carbon Dioxide 20 mmol/L (22-30); Chloride 107 mmol/L (98-107); Glucose 183 mg/dL (74-99); Lipase 55 U/L (23-300); Magnesium 1.5 mg/dL (1.6-2.3); Potassium 4.1 mmol/L (3.5-5.1); Sodium 144 mmol/L (137-145); Total Bilirubin 1.2 mg/dL (0.2-1.3); Total Protein 7.1 g/dL (6.3-8.2)
[2017-05-14] MEDS: DILTIAZEM 125 MG in SODIUM CHLORIDE 0.9% 100 ML IV ONE ×2 (12:46→14:00)
[2017-05-14 12:55] LABS: Creatine Kinase MB 1.1 ng/mL (0.0-2.4); Troponin I 0.023 ng/mL (0.000-0.034)
[2017-05-14 12:57] LABS: T4, Free (Free Thyroxine) 1.99 ng/dL (0.78-2.19)
--- NOTE | 2017-05-14 12:57 | XR ---
EXAMINATION TYPE: XR chest 2V DATE OF EXAM: 05/14/2017 COMPARISON: Chest x-ray April 15, 2017 HISTORY: Fever and cough. Dysrhythmia per order. TECHNIQUE: Frontal and lateral views of the chest are obtained. FINDINGS: There is chronic parenchymal change without suspicious focal air space opacity, pleural ef fusion, or pneumothorax seen. The cardiac silhouette size remains mildly enlarged. The osseous str uctures remain demineralized. IMPRESSION: Chronic changes and mild cardiomegaly without acute pulmonary process. Interval resoluti on of small bilateral pleural effusions noted.
[2017-05-14] MEDS ORDERED: MAGNESIUM SULFATE-D5W PMX 1 GM in DEXTROSE/WATER 1 100ML.BAG IVPB ONE (13:37)
[2017-05-14] MEDS ORDERED: DILTIAZEM 5 MG/ML 5 ML VIAL IVP STA (13:38)
[2017-05-14] MEDS ORDERED: NALOXONE 0.4 MG/ML 1 ML VIAL IV PRN (13:40)
[2017-05-14] MEDS ORDERED: MORPHINE SULFATE 2 MG/ML SYRINGE IV PRN (13:40)
[2017-05-14] MEDS: ONDANSETRON 4 MG/2 ML VIAL IVP PRN ×2 (13:51→21:45)
[2017-05-14] MEDS: cloNIDine HCL 0.1 MG TAB PO SCH ×2 (17:15→21:51)
[2017-05-14] MEDS: METOCLOPRAMIDE 5 MG TAB PO SCH ×2 (17:16→21:51)
[2017-05-14] MEDS: METOPROLOL TARTRATE 50 MG TAB PO SCH ×2 (17:16→21:50)
[2017-05-14] MEDS: LISINOPRIL 5 MG TAB PO SCH (17:16)
[2017-05-14] MEDS: SODIUM CHLORIDE 0.9% 1,000 ML IV SCH (17:17)
[2017-05-14 19:38] LABS: Creatine Kinase MB 2.7 ng/mL (0.0-2.4); Troponin I 0.135 ng/mL (0.000-0.034)
[2017-05-14] MEDS: SYMBICORT 160-4.5 MCG INHALER INHALATION SCH (20:15)
[2017-05-14] MEDS: HYDROmorphone 0.5 MG/0.5 ML SYRINGE IVP PRN (20:58)
[2017-05-14] MEDS: PANTOPRAZOLE 40 MG/10 ML VIAL IVP SCH (21:47)
[2017-05-14] MEDS ORDERED: NITROGLYCERIN SL TABS 0.4 MG TAB SUBLINGUAL PRN (21:48)
[2017-05-14] MEDS ORDERED: TEMAZEPAM 15 MG CAP PO PRN (21:48)
[2017-05-14] MEDS: APIXABAN 2.5 MG TABLET PO SCH (21:50)
[2017-05-14] MEDS: ATORVASTATIN 40 MG TAB PO SCH (21:50)
--- NOTE | 2017-05-14 22:24 | XR ---
EXAMINATION TYPE: XR abdomen acute w cxr - 4 views DATE OF EXAM: 05/14/2017 COMPARISON: NONE HISTORY: Pain, nausea, vomiting TECHNIQUE: Supine, upright, and left side down lateral decubitus views of the abdomen are obtained. FINDINGS: The chest radiograph is negative for acute process. Mildly enlarged cardiac silhouette and mild tortu osity of the thoracic aorta noted. There is no evidence for pneumoperitoneum. The bowel gas pattern is unremarkable as there is air thro ughout nondilated small and large bowel. No sizeable air fluid levels. No mass effects are seen. IMPRESSION: No acute radiographic process.
[2017-05-15 00:26] LABS: ALT 35 U/L (9-52); AST 27 U/L (14-36); Albumin 3.6 g/dL (3.5-5.0); Alkaline Phosphatase 133 U/L (38-126); Anion Gap 12 mmol/L; Blood Urea Nitrogen 22 mg/dL (7-17); Calcium 9.3 mg/dL (8.4-10.2); Carbon Dioxide 23 mmol/L (22-30); Chloride 107 mmol/L (98-107); Glucose 134 mg/dL (74-99); Potassium 4.2 mmol/L (3.5-5.1); Sodium 142 mmol/L (137-145); Total Bilirubin 1.2 mg/dL (0.2-1.3); Total Protein 6.6 g/dL (6.3-8.2)
[2017-05-15] MEDS: DILTIAZEM 125 MG in SODIUM CHLORIDE 0.9% 100 ML IV ONE (00:37)
[2017-05-15 00:56] LABS: Creatine Kinase MB 3.4 ng/mL (0.0-2.4); Troponin I 0.194 ng/mL (0.000-0.034)
[2017-05-15 00:57] LABS: Appearance,Urine Clear (Clear); Bilirubin,Urine Negative (Negative); Blood,Urine Negative (Negative); Color,Urine Yellow; Glucose,Urine (UA) Negative (Negative); Hyaline Casts,Urine 4 /lpf (0-2); Ketones,Urine Negative (Negative); Leukocyte Esterase,Urine Negative (Negative); Mucus,Urine Rare /hpf; Nitrite,Urine Negative (Negative); PH, Urine 5.5 (5.0-8.0); Protein,Urine 1+ (Negative); RBC,Urine 3 /hpf (0-5); Specific Gravity,Urine 1.022 (1.001-1.035); Squamous Epithelial Cell,Urine 2 /hpf (0-4); Urobilinogen,Urine <2.0 mg/dL (<2.0); WBC,Urine 1 /hpf (0-5)
[2017-05-15] MEDS: HYDROmorphone 0.5 MG/0.5 ML SYRINGE IVP PRN ×6 (02:05→22:38)
--- NOTE | 2017-05-15 05:32 | HP ---
HISTORY AND PHYSICAL DATE OF SERVICE: 05/14/2017 CHIEF COMPLAINTS: Nausea, vomiting, chest discomfort and palpitations. HISTORY OF PRESENT ILLNESS: This 72-year-old woman with a past medical history of multiple medical problems including atrial fibrillation, history of CHF, COPD, CVA, DVT, DJD, nonobstructive coronary disease based on the cardiac catheterization in [address] Mckeon in the outpatient setting was complaining of recurrent episodes of vomiting and abdominal discomfort. The patient subsequently also had some chest discomfort. The patient thought it was from the recurrent vomiting and the patient came to [facility] and found to be in atrial fibrillation with fast ventricular rate. Patient admitted for further evaluation and treatment. There is no history of any fever or rigors. No history of headache, loss of consciousness, seizures. PAST HISTORY: Atrial fibrillation, CHF, COPD, CVA, TIA, DVT, hypertension, hyperlipidemia. MEDICATIONS: Medications prior to admission include home medications are: 1. Nitrostat 0.4 sublingual p.r.n. 2. Ultram 50 mg q.i.d. p.r.n. 3. Senokot-S 1 tab p.o. b.i.d. p.r.n. 4. Zofran 4 mg p.o. p.r.n. 5. Xanax 0.25 q.8 p.r.n. 6. Protonix 40 mg p.o. daily. 7. Lopressor 50 mg p.o. b.i.d. 8. Reglan 5 mg p.o. t.i.d. 9. [place] 10 mg q.4 p.r.n. 10.Antivert 25 mg p.o. daily. 11.Zestril 5 mg p.o. daily. 12.Lasix 40 mg p.o. daily. 13.Lipitor 40 mg q.h.s. 14.Eliquis 2.5 mg p.o. b.i.d. 15.Catapres 0.1 p.o. t.i.d. 16.Breo Ellipta 1 puff daily. ALLERGIES: Allergies are SULFA. FAMILY HISTORY: No history of heart disease or strokes in the family. SOCIAL HISTORY: Previous history of smoking. No history of current smoking or alcohol intake. REVIEW OF SYSTEMS: ENT: No diminished hearing or diminished vision. CARDIOVASCULAR SYSTEM: As mentioned earlier. RESPIRATORY SYSTEM: As mentioned earlier. GI: As mentioned earlier. : No dysuria. NERVOUS SYSTEM: No numbness or weakness. ALLERGY/IMMUNOLOGY: No asthma or hayfever. MUSCULOSKELETAL: As mentioned earlier. HEMATOLOGY/ONCOLOGY: No history of anemia. ENDOCRINE: No history of diabetes or hypothyroidism. CONSTITUTIONAL; As mentioned earlier. DERMATOLOGY: Negative. RHEUMATOLOGY: Negative. PSYCHIATRY: As mentioned earlier. PHYSICAL EXAMINATION: The patient is alert and oriented x3. Pulse is 99, blood pressure 179/90, respiration 20, temperature 97.7, pulse ox 96% on 2 L HEENT: Conjunctivae normal. Oral mucosa moist. Neck is no jugular venous distention. No carotid bruit. No lymph node enlargement. CARDIOVASCULAR: S1, S2 muffled, irregular. RESPIRATORY: Breath sounds diminished at the bases. A few scattered rhonchi and crackles. ABDOMEN: Soft. Mild diffuse discomfort on palpation. No mass palpable. LEGS: No edema, no swelling. NERVOUS SYSTEM: Higher functions as mentioned earlier. Moves all 4 limbs. No focal motor or sensory deficit. LYMPHATICS: No lymphadenopathy of the neck, axillae or groin. SKIN: No ulcer, rash or bleeding. LABS: WBC 19.3, hemoglobin is 13. Sodium 144, potassium 4.4. Magnesium 1.5. Alkaline phosphatase 156. Troponin is 0.135. The EKG shows possibly with fast ventricular rate. The chest x-ray report showed chronic changes without any acute pulmonary process. ASSESSMENT: 1. Atrial fibrillation with fast ventricular rate. 2. Vomiting with abdomen discomfort, possibly acute gastritis. 3. Chest pain with troponin 0.135, possibly acute non-ST elevation myocardial infarction. 4. Hypomagnesemia. 5. Increased WBC. 6. History of congestive heart failure. 7. History of chronic obstructive pulmonary disease. 8. History of cerebrovascular accident, transient ischemic attack. 9. History of deep venous thrombosis. 10.Hypertension. 11.Hyperlipidemia. 12.History of degenerative joint disease. 13.History of nonobstructive coronary artery disease. 14.History of paroxysmal atrial fibrillation. 15.History of MALT lymphoma of the small bowel. 16.Deep venous thrombosis history. 17.History of cerebrovascular accident .. 18.History of peripheral vascular disease. 19.History of cholecystectomy. 20.Remote history of nicotine dependence. RECOMMENDATIONS AND DISCUSSION: This 72-year-old woman presented with multiple complex medical issues, we will monitor the patient closely. Continue the current medications, continue symptomatic treatment. Patient is started on Cardizem drip and we will continue to monitor. Cardiology consultation. Otherwise resume the home medications. Would also recommend symptomatic treatment in the form of Protonix and as well as keep the patient on clear liquids and obtain ultrasound of abdomen also for the evaluation of abdominal pain. Other than that, we will follow the patient closely. Prognosis guarded because of multiple complex medical issues. A copy of dictation forwarded to Dr. Mckeon who is the primary physician. MMODL / IJN: [id number] / MTDD
[2017-05-15 06:28] LABS: Basophils % (A) 0 %; Eosinophils # (A) 0.1 k/uL (0-0.7); Eosinophils % (A) 1 %; HCT 33.6 % (34.0-46.0); HGB 10.5 gm/dL (11.4-16.0); Hypochromasia Moderate; Lymphocytes % (A) 14 %; MCH 29.2 pg (25.0-35.0); MCHC 31.1 g/dL (31.0-37.0); MCV 93.7 fL (80.0-100.0); Mean Platelet Volume 7.6; Monocytes # (A) 0.8 k/uL (0-1.0); Monocytes % (A) 6 %; Neutrophils % (A) 77 %; Platelet Count 249 k/uL (150-450); RBC 3.59 m/uL (3.80-5.40); RDW 15.8 % (11.5-15.5); WBC 14.3 k/uL (3.8-10.6)
[2017-05-15 06:44] LABS: Anion Gap 8 mmol/L; Blood Urea Nitrogen 23 mg/dL (7-17); Calcium 8.9 mg/dL (8.4-10.2); Carbon Dioxide 22 mmol/L (22-30); Chloride 110 mmol/L (98-107); Glucose 94 mg/dL (74-99); Potassium 4.2 mmol/L (3.5-5.1); Sodium 140 mmol/L (137-145)
[2017-05-15] MEDS: SYMBICORT 160-4.5 MCG INHALER INHALATION SCH ×2 (08:58→20:56)
[2017-05-15] MEDS ORDERED: PANTOPRAZOLE 40 MG/10 ML VIAL IV SCH (09:00)
[2017-05-15] MEDS: METOCLOPRAMIDE 5 MG TAB PO SCH ×3 (09:02→21:48)
[2017-05-15] MEDS: MECLIZINE 25 MG TAB PO SCH (09:02)
[2017-05-15] MEDS: PANTOPRAZOLE 40 MG/10 ML VIAL IVP SCH ×2 (09:02→20:29)
[2017-05-15] MEDS: FUROSEMIDE 40 MG TAB PO SCH (09:02)
[2017-05-15] MEDS: APIXABAN 2.5 MG TABLET PO SCH ×2 (09:03→20:30)
--- NOTE | 2017-05-15 10:16 | P.CRDCN ---
History of Present Illness Consult date: 05/15/17 Requesting physician: Shaina Riggs Consult reason: chest pain Chief complaint: Nausea and vomiting, chest pain History of present illness: This is a 72-year-old female who follows with Dr. Patel in the office, she has a history of paroxysmal atrial fibrillation, prior DVT, COPD, hypertension, patient underwent a cardiac catheterization in March 2017 which revealed normal coronary arteries with mild spasm, hypokinesia of the inferior basal region. She presents to the hospital on this occasion with several episodes of vomiting, she also states that she was having a sharp midsternal chest discomfort feeling like her heart was racing fast.Initial EKG showed atrial fibrillation with a rapid ventricular response , patient converted to normal sinus rhythm through the night last night. subsequent EKG shows a sinus bradycardia with a heart rate in the 50s. Chest x-ray shows chronic changes and mild cardiomegaly without acute pulmonary process. Resolution of small bilateral pleural effusions is noted. Acute abdominal series was performed which did not reveal any acute radiographic process. Blood pressure on admission 225/94, heart rate in the 130s, 98% on 2 L of oxygen. At pressure this morning 100/58 with a heart rate in the 50s to 60s. White Blood cell count on admission 19.7, 14.3 this morning. Hemoglobin on admission 13, 10.5 this morning. Platelet count 249. Sodium 140, potassium 4.2 , chloride 110, BUN 23, creatinine 0.9. TSH and free T4 normal. Troponin 0.023 , 0.13, 0.19. Influenza A and B-. The time of my examination this morning, patient denies any chest discomfort or palpitations. Still feels mildly nauseated. Past Medical History Past Medical History: Atrial Fibrillation, Heart Failure, COPD, CVA/TIA, Deep Vein Thrombosis (DVT), Hyperlipidemia, Hypertension, Osteoarthritis (OA) Additional Past Medical History / Comment(s): Nonobstructive coronary artery disease based on a cardiac catheterization was done in April 2015, apical ballooning suggestive of broken heart syndrome back in 2015, paroxysmal atrial fibrillation, 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 Peripheral vascular disease with a previous history of iliac artery stenting History of Any Multi-Drug Resistant Organisms: None Reported Past Surgical History: Cholecystectomy, Joint Replacement, Tonsillectomy Additional Past Surgical History / Comment(s): Small bowel resection for resection of a MALT tumor, cataract surgery in the right eye, tooth extraction, right hip ORIF, tonsillectomy, cholecystectomy, cardiac catheterization back in 2016, iliac artery stenting, EGD. Past Anesthesia/Blood Transfusion Reactions: No Reported Reaction Smoking Status: Former smoker - Past Family History Mother Family Medical History: No Reported History Additional Family Medical History / Comment(s): . Father History Unknown: Yes Medications and Allergies Home Medications Medication Instructions Recorded Confirmed Type Ondansetron Odt [Zofran ODT] 4 mg PO Q8H PRN 05/15/15 05/14/17 History Pantoprazole Sodium [Protonix] 40 mg PO DAILY 05/15/15 05/14/17 History Meclizine [Antivert] 25 mg PO DAILY 12/20/16 05/14/17 History Metoclopramide HCl [Reglan] 5 mg PO TID 12/20/16 05/14/17 History Fluticasone/Vilanterol [Breo 1 puff INHALATION RT-DAILY 04/01/17 05/14/17 History Ellipta 200-25 Mcg INH] Furosemide [Lasix] 40 mg PO DAILY #30 tab 04/07/17 05/14/17 Rx Lisinopril [Zestril] 5 mg PO DAILY #30 tab 04/07/17 05/14/17 Rx Sennosides-Docusate Sodium 1 tab PO BID PRN 04/10/17 05/14/17 History [Senokot-S] ALPRAZolam [Xanax] 0.25 mg PO Q8H PRN #20 tablet 04/15/17 05/14/17 Rx Atorvastatin [Lipitor] 40 mg PO HS tab 04/15/17 05/14/17 Rx HYDROcodone/APAP 10-325MG [Siler 1 tab PO Q4H PRN #60 tab 04/15/17 05/14/17 Rx 10-325] Metoprolol Tartrate [Lopressor] 50 mg PO BID #60 tab 04/15/17 05/14/17 Rx Nitroglycerin Sl Tabs [Nitrostat] 0.4 mg SUBLINGUAL Q5M PRN #20 tab 04/15/17 Rx cloNIDine HCL [Catapres] 0.1 mg PO TID #90 tab 04/15/17 05/14/17 Rx Apixaban [Eliquis] 2.5 mg PO BID 05/14/17 05/14/17 History traMADol HCl [Ultram] 50 mg PO QID PRN 05/14/17 05/14/17 History Allergies Allergy/AdvReac Type Severity Reaction Status Date / Time Sulfa (Sulfonamide Allergy Anaphylaxis Verified 05/14/17 12:16 Antibiotics) Physical Exam Vitals: Vital Signs Temp Pulse Pulse Resp BP BP Pulse Ox 05/15/17 08:58 100 05/15/17 08:00 97.9 F 57 L 16 100/58 100 05/15/17 04:00 97.2 F L 57 L 18 97/54 97 05/15/17 00:00 97.0 F L 73 18 163/87 98 05/14/17 20:15 96 05/14/17 20:00 97.5 F L 98 18 159/77 98 05/14/17 15:10 97.7 F 99 20 179/90 96 05/14/17 15:05 106 H 18 05/14/17 14:40 130 H 20 185/86 95 05/14/17 14:07 212/96 05/14/17 14:01 97.7 F 05/14/17 13:34 138 H 20 226/101 97 05/14/17 12:05 97.8 F 138 H 24 225/94 98 Intake and Output 05/14/17 05/15/17 05/15/17 22:59 06:59 14:59 Intake Total 470 266.167 Output Total 200 Balance 470 66.167 Intake: Intake, IV Titration 266.167 Amount Diltiazem 125 mg In 106.167 Sodium Chloride 0.9% 100 ml @ 10 MG/HR 10 mls/hr IV .[id number] ONE Rx#: [id number] Sodium Chloride 0.9% 1, 160 000 ml @ 20 mls/hr IV . Q24H MIRANDA Rx#:[id number] Oral 470 Output: Urine 200 Other: # Voids 1 Weight 97.3 kg Results 05/15/17 06:01 05/15/17 06:01 Cardiac Enzymes 05/14/17 05/14/17 05/14/17 Range/Units 12:00 12:00 18:41 AST 29 (14-36) U/L CK-MB (CK-2) 1.1 2.7 H* (0.0-2.4) ng/mL Troponin I 0.023 0.135 H* (0.000-0.034) ng/mL 05/14/17 05/14/17 Range/Units 23:57 23:57 AST 27 (14-36) U/L CK-MB (CK-2) 3.4 H* (0.0-2.4) ng/mL Troponin I 0.194 H* (0.000-0.034) ng/mL Coagulation 05/14/17 Range/Units 12:00 PT 10.0 (9.0-12.0) sec APTT 19.1 L (22.0-30.0) sec CBC 05/14/17 05/15/17 Range/Units 12:00 06:01 WBC 19.7 H 14.3 H (3.8-10.6) k/uL RBC 4.41 3.59 L (3.80-5.40) m/uL Hgb 13.0 D 10.5 L (11.4-16.0) gm/dL Hct 39.9 33.6 L (34.0-46.0) % Plt Count 334 249 (150-450) k/uL Comprehensive Metabolic Panel 05/14/17 05/14/17 05/15/17 Range/Units 12:00 23:57 06:01 Sodium 144 142 140 (137-145) mmol/L Potassium 4.1 4.2 4.2 (3.5-5.1) mmol/L Chloride 107 107 110 H (98-107) mmol/L Carbon Dioxide 20 L 23 22 (22-30) mmol/L BUN 23 H 22 H 23 H (7-17) mg/dL Creatinine 0.90 0.90 0.90 (0.52-1.04) mg/dL Glucose 183 H 134 H 94 (74-99) mg/dL Calcium 9.5 9.3 8.9 (8.4-10.2) mg/dL AST 29 27 (14-36) U/L ALT 32 35 (9-52) U/L Alkaline Phosphatase 156 H 133 H (38-126) U/L Total Protein 7.1 6.6 (6.3-8.2) g/dL Albumin 4.0 3.6 (3.5-5.0) g/dL Current Medications Generic Name Dose Route Start Last Admin Trade Name Freq PRN Reason Stop Dose Admin Hydrocodone Bitart/Acetaminophen 1 each 05/14/17 13:48 Siler 10 PO Q4H PRN MODERATE Pain Alprazolam 0.25 mg 05/14/17 13:48 Xanax PO Q8H PRN Anxiety Apixaban 2.5 mg 05/14/17 21:00 05/15/17 09:03 Eliquis PO 2.5 mg BID MIRANDA Administration Atorvastatin Calcium 40 mg 05/14/17 21:00 05/14/17 21:50 Lipitor PO 40 mg HS MIRANDA Administration Budesonide/Formoterol Fumarate 2 puff 05/14/17 20:00 05/15/17 08:58 Symbicort 160-4.5 Mcg Inhaler INHALATION 2 puff RT-BID MIRANDA Administration Clonidine 0.1 mg 05/14/17 16:00 05/14/17 21:51 Catapres PO 0.1 mg TID MIRANDA Administration Furosemide 40 mg 05/15/17 09:00 05/15/17 09:02 Lasix PO 40 mg DAILY MIRANDA Administration Hydromorphone HCl 0.5 mg 05/14/17 20:20 05/15/17 06:00 Dilaudid IVP 0.5 mg Q4HR PRN Administration Severe Pain Sodium Chloride 1,000 mls @ 20 mls/hr 05/14/17 13:45 05/14/17 17:17 Saline 0.9% IV 20 mls/hr .Q24H MIRANDA Administration Lisinopril 5 mg 05/14/17 14:30 05/14/17 17:16 Zestril PO 5 mg DAILY MIRANDA Administration Meclizine HCl 25 mg 05/15/17 09:00 05/15/17 09:02 Antivert PO 25 mg DAILY MIRANDA Administration Metoclopramide HCl 5 mg 05/14/17 16:00 05/15/17 09:02 Reglan PO 5 mg TID MIRANDA Administration Metoprolol Tartrate 50 mg 05/14/17 14:30 05/14/17 21:50 Lopressor PO 50 mg BID MIRANDA Administration Naloxone HCl 0.2 mg 05/14/17 13:40 Narcan IV Q2M PRN Opioid Reversal Nitroglycerin 0.4 mg 05/14/17 21:48 Nitrostat SUBLINGUAL Q5M PRN Chest Pain Ondansetron HCl 4 mg 05/14/17 13:40 05/14/17 21:45 Zofran IVP 4 mg Q8HR PRN Administration Nausea And Vomiting Pantoprazole Sodium 40 mg 05/14/17 21:00 05/15/17 09:02 Protonix IVP 40 mg BID MIRANDA Administration Temazepam 15 mg 05/14/17 21:48 Restoril PO HS PRN Insomnia Intake and Output 05/14/17 05/15/17 05/15/17 22:59 06:59 14:59 Intake Total 470 266.167 Output Total 200 Balance 470 66.167 Intake: Intake, IV Titration 266.167 Amount Diltiazem 125 mg In 106.167 Sodium Chloride 0.9% 100 ml @ 10 MG/HR 10 mls/hr IV .[id number] ONE Rx#: [id number] Sodium Chloride 0.9% 1, 160 000 ml @ 20 mls/hr IV . Q24H MIRANDA Rx#:[id number] Oral 470 Output: Urine 200 Other: # Voids 1 Weight 97.3 kg 05/15/17 06:01 05/15/17 06:01 EKG Interpretations (text) Initial EKG showed atrial fibrillation with a rapid ventricular response Assessment and Plan Plan: Assessment and plan #1 symptoms of persistent nausea and vomiting associated abdominal discomfort, possible acute gastritis, elevated white blood cell count #2 symptoms of chest pain or palpitations, and initial EKG on presentation here showed atrial fibrillation with a rapid ventricular response. Patient underwent a cardiac catheterization in March 2017 which did not reveal any obstructive coronary artery disease, suggestive possible spasm. #3 hypertensive urgency #4 paroxysmal atrial fibrillation, on Eliquis for anticoagulation #5 history of DVT #6 peripheral vascular disease #7 prior CVA #8 prior history of smoking PLan Patient converted to normal sinus rhythm through the night last night. IV Cardizem has been discontinued. We'll obtain an echocardiogram with Doppler study. Continue Eliquis along with Lipitor, lisinopril, metoprolol Lasix by mouth. Chest pain very atypical, likely secondary to atrial fibrillation with rapid ventricular response. Further recommendations to follow. DNP note has been reviewed, I agree with a documented findings and plan of care. Patient was seen and examined.
[2017-05-15] MEDS: cloNIDine HCL 0.1 MG TAB PO SCH ×3 (10:38→21:48)
[2017-05-15] MEDS: METOPROLOL TARTRATE 50 MG TAB PO SCH ×2 (10:39→20:30)
[2017-05-15] MEDS: SODIUM CHLORIDE 0.9% 1,000 ML IV SCH (11:11)
[2017-05-15] MEDS: LISINOPRIL 5 MG TAB PO SCH (11:13)
--- NOTE | 2017-05-15 11:44 | US ---
EXAMINATION TYPE: US abdomen limited DATE OF EXAM: 05/14/2017 COMPARISON: NONE CLINICAL HISTORY: pain. EXAM MEASUREMENTS: Liver Length: 12.8 cm Gallbladder Wall: Surgically absent cm CBD: 0.5 cm Right Kidney: 9.8 x 4.4 x 5.1cm Morbidly obese patient. Technically difficult and somewhat limited study. Pancreas: Mostly obscured by bowel gas, portions visualized wnl Liver: Increased attenuation, decreased visualization of vessels suggestive of fatty infiltrate Gallbladder: Surgically absent Evidence for sonographic Whitney's sign: no CBD: wnl Right Kidney: No hydronephrosis or masses seen IMPRESSION: 1. Hepatic steatosis versus diffuse hepatocellular disease. Correlate clinically.
[2017-05-15] MEDS: FLECAINIDE 50 MG TAB PO SCH ×2 (12:11→20:30)
[2017-05-15] MEDS ORDERED: DOCUSATE 100 MG CAP PO STA (14:50)
[2017-05-15] MEDS: SENNOSIDES 8.6 MG TAB PO SCH (15:39)
[2017-05-15] MEDS: DOCUSATE 100 MG CAP PO SCH (20:29)
[2017-05-15] MEDS: ATORVASTATIN 40 MG TAB PO SCH (20:30)
--- NOTE | 2017-05-16 06:25 | PN ---
PROGRESS NOTE DATE OF SERVICE: 05/15/2017 This 72-year-old woman with a past medical history of multiple medical problems admitted with atrial fibrillation with rapid ventricular rate. The patient also complaining of abdominal pain, vomiting, nausea. Yesterday abdominal pain slightly better. Evaluation included plain x-ray, KUB and as well as ultrasound did not show any acute abnormality. No chest pain. No palpitations. No fever. PHYSICAL EXAM: On exam, alert, oriented x3. Pulse 57, blood pressure 97/53, respiration 18, temperature normal, pulse ox 96% on room air. HEENT: Conjunctivae normal.NECK: No jugular venous distention. CARDIOVASCULAR: S1 and S2 muffled. RESPIRATORY: Breath sounds diminished at the bases. A few scattered rhonchi and crackles. Abdomen is soft. Mild diffuse discomfort on palpation. LEGS: No edema, no swelling. NERVOUS SYSTEM: No focal deficits. LABS: WBC 14.3, hemoglobin 10.5. Troponin 0.194. ASSESSMENT: 1. Atrial fibrillation with a fast ventricular rate. 2. Vomiting with abdominal discomfort, possible acute gastritis. 3. Chest pain. Troponin 0.135 indeterminate, rule out acute non-ST elevation myocardial infarction. 4. Hypomagnesemia. 5. Increased WBC. 6. History of congestive heart failure. 7. History of chronic obstructive pulmonary disease. 8. History of cerebrovascular accident, transient ischemic attack. 9. History of deep vein thrombosis. 10.Hypertension. 11.Hyperlipidemia. 12.History of degenerative joint disease. 13.History of nonobstructive coronary artery disease. 14.History of paroxysmal atrial fibrillation. RECOMMENDATIONS AND DISCUSSION: Recommend to continue current medication, continue symptomatic treatment. Otherwise at this time closely follow with Cardiology. Guarded prognosis because of multiple complex medical issues. symptomatic treatment. Advance diet as tolerated. Further recommendations to follow. MMODL / IJN: [id number] / MTDD
[2017-05-16] MEDS: HYDROmorphone 0.5 MG/0.5 ML SYRINGE IVP PRN ×5 (06:30→21:50)
[2017-05-16 07:02] LABS: Anisocytosis Slight; Basophils % (A) 0 %; Eosinophils # (A) 0.1 k/uL (0-0.7); Eosinophils % (A) 1 %; HCT 34.7 % (34.0-46.0); HGB 10.8 gm/dL (11.4-16.0); Hypochromasia Slight; Lymphocytes % (A) 20 %; MCH 29.2 pg (25.0-35.0); MCHC 31.2 g/dL (31.0-37.0); MCV 93.5 fL (80.0-100.0); Mean Platelet Volume 7.3; Monocytes # (A) 0.7 k/uL (0-1.0); Monocytes % (A) 7 %; Neutrophils # (A) 7.1 k/uL (1.3-7.7); Neutrophils % (A) 70 %; Platelet Count 243 k/uL (150-450); RBC 3.72 m/uL (3.80-5.40); WBC 10.1 k/uL (3.8-10.6)
[2017-05-16 07:12] LABS: Anion Gap 9 mmol/L; Blood Urea Nitrogen 23 mg/dL (7-17); Calcium 8.7 mg/dL (8.4-10.2); Carbon Dioxide 24 mmol/L (22-30); Chloride 108 mmol/L (98-107); Glucose 87 mg/dL (74-99); Potassium 3.8 mmol/L (3.5-5.1); Sodium 141 mmol/L (137-145)
[2017-05-16] MEDS: LISINOPRIL 5 MG TAB PO SCH (07:33)
[2017-05-16] MEDS: PANTOPRAZOLE 40 MG/10 ML VIAL IVP SCH ×2 (07:33→19:37)
[2017-05-16] MEDS: APIXABAN 2.5 MG TABLET PO SCH ×2 (07:34→21:10)
[2017-05-16] MEDS: FUROSEMIDE 40 MG TAB PO SCH (07:34)
[2017-05-16] MEDS: METOCLOPRAMIDE 5 MG TAB PO SCH (07:34)
[2017-05-16] MEDS: SENNOSIDES 8.6 MG TAB PO SCH (07:34)
[2017-05-16] MEDS: METOPROLOL TARTRATE 50 MG TAB PO SCH ×2 (07:34→21:10)
[2017-05-16] MEDS: MECLIZINE 25 MG TAB PO SCH (07:34)
[2017-05-16] MEDS: FLECAINIDE 50 MG TAB PO SCH ×2 (07:34→21:10)
[2017-05-16] MEDS: cloNIDine HCL 0.1 MG TAB PO SCH (07:34)
[2017-05-16] MEDS: DOCUSATE 100 MG CAP PO SCH ×2 (07:34→21:09)
[2017-05-16] MEDS: ONDANSETRON 4 MG/2 ML VIAL IVP PRN ×2 (08:46→16:43)
[2017-05-16] MEDS: METOCLOPRAMIDE 5 MG/ML 2 ML VIAL IVP SCH ×2 (10:31→17:35)
[2017-05-16] MEDS: SODIUM CHLORIDE 0.9% 1,000 ML IV SCH (10:53)
--- NOTE | 2017-05-16 11:43 | CDI ---
Last Revision, March 2017 Documentation Clarification Form Date: 05/16/2017 11:26:00 AM From: Nithya Quintero RN Admit Date: 05/14/2017 1:40:00 PM Patient Name: Maureen Anand Visit Number: [id number] ATTENTION: The Clinical Documentation Specialists (CDI) and [facility] Coding Staff appreciate your assistance in clarifying documentation. Please respond to the clarification below the line at the bottom and electronically sign. The CDI & [facility] Coding staff will review the response and follow-up if needed. Please note: Queries are made part of the Legal Health Record. If you have any questions, please contact the author of this message via ITS. Dr. Demetrio Saleh and Kaelyn Mendiola, Per the Cardiology consult a history of heart failure was documented. History/Risk Factors:. a fib, chf, copd, cva, tia, dvt, Htn, hyperlipidemia Clinical Indicators: BNP: [id number] Chest X Ray: mild cardiomegaly, small bilateral pleural effusions Treatment: Lasix 40mg po In your professional opinion, can you please clarify the acuity and type of CHF if known? Systolic Heart Failure: Acute Chronic Acute on Chronic Diastolic Heart Failure: Acute Chronic Acute on Chronic Systolic & Diastolic Heart Failure: Acute Chronic Acute on Chronic Heart Failure Unable to Determine Other, please specify Please continue to document in your progress notes and discharge summary in order to capture severity of illness and risk of mortality. Include clinical findings that support your diagnosis. MTDD
[2017-05-16] MEDS: SYMBICORT 160-4.5 MCG INHALER INHALATION SCH ×2 (11:47→20:17)
[2017-05-16 11:51] LABS: Glucose,Whole Blood 133 mg/dL (75-99)
[2017-05-16] MEDS ORDERED: cloNIDine HCL 0.1 MG TAB PO PRN (12:34)
[2017-05-16] MEDS: hydrALAZINE HCL 20 MG/ML 1 ML VIAL IVP PRN ×2 (12:42→18:30)
[2017-05-16] MEDS ORDERED: LABETALOL 5 MG/ML VIAL MDV IVP PRN (14:11)
[2017-05-16] MEDS ORDERED: cloNIDine 0.3 MG/24HR PATCH 1 PATCH PATCH TRANSDERM SCH (14:30)
--- NOTE | 2017-05-16 14:46 | PN ---
PROGRESS NOTE This patient was admitted with abdominal pain, nausea and atrial fibrillation with atrial flutter. Patient has converted to the normal sinus rhythm. Patient continues to have moderate to severe abdominal pain and she is nauseated. She is unable to keep her medications. Patient's blood pressure is elevated because of the pain and she is not able to take her medications. She remains in normal sinus rhythm. First and second heart sounds are normal. Lungs are clear to auscultation and percussion. There is a mild abdominal tenderness noted. Surgical consultation is obtained. We will obtain CT scan of the abdomen. The patient is given clonidine patch #3 once a week to further control of blood pressure. If blood pressure remains elevated, patient can be given labetalol 20 mg q.6 hourly p.r.n. MMLORENZOL / ANAMARIAN: [id number] /
--- NOTE | 2017-05-16 15:08 | XR ---
EXAMINATION TYPE: XR abdomen 2V DATE OF EXAM: 05/16/2017 CLINICAL HISTORY: Right upper quadrant pain. TECHNIQUE: Supine and upright views of the abdomen are obtained. COMPARISON: CT abdomen and pelvis April 10, 2017. FINDINGS: There is some paucity of bowel gas. Visualized gas is noted in nondistended small and large bowel loops scattered throughout the abdomen and pelvis. Cholecystectomy clips are seen. Lung bases are clear. Metallic hardware from right hip surgery with acetabular protrusion is redemonstrated. No pneumoperitoneum is identified. IMPRESSION: Overall nonspecific but strongly favor nonobstructive bowel gas pattern.
--- NOTE | 2017-05-16 15:19 | CT ---
EXAMINATION TYPE: CT abdomen wo con DATE OF EXAM: 05/16/2017 COMPARISON: 04/09/2017. HISTORY: Upper Abdominal pain CT DLP: 783.2 mGycm Automated exposure control for dose reduction was used. TECHNIQUE: Helical acquisition of images was performed from the lung bases through the top of iliac crest to include entire abdomen. CONTRAST: Performed without Oral Contrast and without IV contrast. FINDINGS: Lack of intravenous contrast and oral contrast, evaluation of both hollow and solid viscera . LUNG BASES: There is a trace right pleural effusion and small left pleural effusion with associated b ibasilar subsegmental compressive atelectasis. Minimal coronary artery calcifications are partially v isualized. No pericardial effusion. Small hiatal hernia is also seen. LIVER/GB: Hepatic parenchyma is unremarkable. Cholecystectomy clips are noted within the gallbladder fossa. PANCREAS: No significant abnormality is seen. SPLEEN: No significant abnormality is seen. ADRENALS: No significant abnormality is seen. KIDNEYS: Small left renal sinus cysts are incidentally noted. No nephrolithiasis or hydronephrosis. BOWEL: No evidence of bowel dilation or obstruction. Appendix is within normal limits. LYMPH NODES: No significant abnormality is appreciated. OSSEOUS STRUCTURES: Mild multilevel degenerative changes of the visualized thoracolumbar spine are n oted. FREE AIR: No free air is visualized. OTHER: That filled umbilical hernia measures 2.7 cm and a loop of small bowel abuts the hernia defect . No proximally dilated bowel or distally decompressed bowel to suggest current incarceration. Anasto motic site is seen within the right lower quadrant from an enteroenteroanastomosis. IMPRESSION: 1. NO CT FINDING TO CORRESPOND TO THE PATIENT'S UPPER ABDOMINAL PAIN. 2. REDEMONSTRATION OF A SMALL FAT FILLED UMBILICAL HERNIA WITH ABUTTING LOOP OF SMALL BOWEL. NO CURRE NT EVIDENCE OF OBSTRUCTION.
[2017-05-16] MEDS: HYDROcodone/APAP 10-325MG 1 EACH TAB PO PRN (16:50)
--- NOTE | 2017-05-16 17:10 | P.GSCN ---
History of Present Illness Consult date: 05/16/17 Reason for Consult: Abdominal pain, vomiting History of present illness: The patient is a 72-year-old female that presented to the emergency department with vomiting and chest pain. She has a history of atrial fibrillation with occasional rapid ventricular response. When she's had this in the past she'll develop the chest discomfort and vomiting. This morning she began developing abdominal discomfort. She's had the vomiting and abdominal discomfort in the past. At least 2 previous admissions the last 6 months. Prior to that, she had had episodes of admission to [facility] with similar complaints. She had a laparoscopic cholecystectomy done after extensive workup there and she still has symptoms. She has been diagnosed with gastroparesis. She does take Reglan at home. In March Dr. Haider did a EGD on her. That was unremarkable. The patient does believe she had a colonoscopy about 2 years ago which she thinks was normal. No blood in the stool or dark tarry stool. No blood in the vomitus. No unexplained weight loss. 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 Peripheral vascular disease with a previous history of iliac artery stenting History of Any Multi-Drug Resistant Organisms: None Reported Past Surgical History: Cholecystectomy, Joint Replacement, Tonsillectomy Additional Past Surgical History / Comment(s): Small bowel resection for resection of a MALT tumor, cataract surgery in the right eye, tooth extraction, right hip ORIF, tonsillectomy, laparoscopic cholecystectomy, cardiac catheterization back in 2015, iliac artery stenting, EGD. Past Anesthesia/Blood Transfusion Reactions: No Reported Reaction Smoking Status: Former smoker - Past Family History Mother Family Medical History: No Reported History Additional Family Medical History / Comment(s): . Father History Unknown: Yes Medications and Allergies Home Medications Medication Instructions Recorded Confirmed Type Ondansetron Odt [Zofran ODT] 4 mg PO Q8H PRN 05/15/15 05/14/17 History Pantoprazole Sodium [Protonix] 40 mg PO DAILY 05/15/15 05/14/17 History Meclizine [Antivert] 25 mg PO DAILY 12/20/16 05/14/17 History Metoclopramide HCl [Reglan] 5 mg PO TID 12/20/16 05/14/17 History Fluticasone/Vilanterol [Breo 1 puff INHALATION RT-DAILY 04/01/17 05/14/17 History Ellipta 200-25 Mcg INH] Furosemide [Lasix] 40 mg PO DAILY #30 tab 04/07/17 05/14/17 Rx Lisinopril [Zestril] 5 mg PO DAILY #30 tab 04/07/17 05/14/17 Rx Sennosides-Docusate Sodium 1 tab PO BID PRN 04/10/17 05/14/17 History [Senokot-S] ALPRAZolam [Xanax] 0.25 mg PO Q8H PRN #20 tablet 04/15/17 05/14/17 Rx Atorvastatin [Lipitor] 40 mg PO HS tab 04/15/17 05/14/17 Rx HYDROcodone/APAP 10-325MG [[place] 1 tab PO Q4H PRN #60 tab 04/15/17 05/14/17 Rx 10-325] Metoprolol Tartrate [Lopressor] 50 mg PO BID #60 tab 04/15/17 05/14/17 Rx Nitroglycerin Sl Tabs [Nitrostat] 0.4 mg SUBLINGUAL Q5M PRN #20 tab 04/15/17 Rx cloNIDine HCL [Catapres] 0.1 mg PO TID #90 tab 04/15/17 05/14/17 Rx Apixaban [Eliquis] 2.5 mg PO BID 05/14/17 05/14/17 History traMADol HCl [Ultram] 50 mg PO QID PRN 05/14/17 05/14/17 History Allergies Allergy/AdvReac Type Severity Reaction Status Date / Time Sulfa (Sulfonamide Allergy Anaphylaxis Verified 05/14/17 12:16 Antibiotics) Surgical - Exam Osteopathic Statement: *. No significant issues noted on an osteopathic structural exam other than those noted in the History and Physical/Consult. Vital Signs Temp Pulse Resp BP Pulse Ox 97.8 F 138 H 24 225/94 98 05/14/17 12:05 05/14/17 12:05 05/14/17 12:05 05/14/17 12:05 05/14/17 12:05 - General well developed, well nourished, chronically ill (Chronically ill-appearing), obese - Eyes normal ocular movement - ENT normal mucosa - Neck trachea midline - Respiratory normal expansion, normal respiratory effort, clear to auscultation (Slightly diminished at bases) - Cardiovascular Rhythm: irregularly irregular - Abdomen Abdomen: soft, tender (Tenderness in the upper abdomen), bowel sounds, surgical scars, no rigid, no rebound, no distended Hernia: no incisional - Psychiatric oriented to time, oriented to person, oriented to place, speech is normal, memory intact Results - Labs 05/16/17 06:14 05/16/17 06:14 Abnormal Lab Results - Last 24 Hours (Table) 05/16/17 05/16/17 05/16/17 Range/Units 06:14 06:14 11:35 RBC 3.72 L (3.80-5.40) m/uL Hgb 10.8 L (11.4-16.0) gm/dL RDW 16.0 H (11.5-15.5) % Chloride 108 H (98-107) mmol/L BUN 23 H (7-17) mg/dL POC Glucose (mg/dL) 133 H (75-99) mg/dL Diabetes panel 05/16/17 Range/Units 06:14 Sodium 141 (137-145) mmol/L Potassium 3.8 (3.5-5.1) mmol/L Chloride 108 H (98-107) mmol/L Carbon Dioxide 24 (22-30) mmol/L BUN 23 H (7-17) mg/dL Creatinine 0.93 (0.52-1.04) mg/dL Glucose 87 (74-99) mg/dL Calcium 8.7 (8.4-10.2) mg/dL Calcium panel 05/16/17 Range/Units 06:14 Calcium 8.7 (8.4-10.2) mg/dL Pituitary panel 05/16/17 Range/Units 06:14 Sodium 141 (137-145) mmol/L Potassium 3.8 (3.5-5.1) mmol/L Chloride 108 H (98-107) mmol/L Carbon Dioxide 24 (22-30) mmol/L BUN 23 H (7-17) mg/dL Creatinine 0.93 (0.52-1.04) mg/dL Glucose 87 (74-99) mg/dL Calcium 8.7 (8.4-10.2) mg/dL Adrenal panel 05/16/17 Range/Units 06:14 Sodium 141 (137-145) mmol/L Potassium 3.8 (3.5-5.1) mmol/L Chloride 108 H (98-107) mmol/L Carbon Dioxide 24 (22-30) mmol/L BUN 23 H (7-17) mg/dL Creatinine 0.93 (0.52-1.04) mg/dL Glucose 87 (74-99) mg/dL Calcium 8.7 (8.4-10.2) mg/dL - Imaging CT scan - abdomen: report reviewed, image reviewed Assessment and Plan (1) Umbilical hernia without obstruction and without gangrene Current Visit: Yes Status: Acute Code(s): K42.9 - UMBILICAL HERNIA WITHOUT OBSTRUCTION OR GANGRENE SNOMED Code(s): 7413402 (2) Acute vomiting Current Visit: Yes Status: Acute Code(s): R11.10 - VOMITING, UNSPECIFIED SNOMED Code(s): 45239127 (3) Atrial fibrillation with RVR Current Visit: Yes Status: Acute Code(s): I48.91 - UNSPECIFIED ATRIAL FIBRILLATION SNOMED Code(s): 201286696689397 (4) Chest pain Current Visit: Yes Status: Acute Code(s): R07.9 - CHEST PAIN, UNSPECIFIED SNOMED Code(s): 31117032 (5) Abdominal pain Current Visit: No Status: Acute Code(s): R10.9 - UNSPECIFIED ABDOMINAL PAIN SNOMED Code(s): 17562086 (6) Nondiabetic gastroparesis Current Visit: Yes Status: Acute Code(s): K31.84 - GASTROPARESIS SNOMED Code(s): 29570812 Plan: The patient currently has a nonsurgical abdomen. The computed tomography scan was reviewed and unremarkable. Her labs are fairly normal today. She has a history of recurrent emesis which is been attributed to gastroparesis. Her abdominal discomfort may be related to recurrent emesis. A lactic acid level was ordered just to rule out something such as ischemic bowel from her atrial fibrillation. I doubt that at this point however. We will increase the dosage of her Reglan since she's been vomiting today. I'll recheck her in the morning.
[2017-05-16] MEDS: LEVOFLOXACIN 500MG-D5W PMX 500 MG in DEXTROSE/WATER 1 100ML.BAG IVPB SCH (18:44)
[2017-05-16 20:44] LABS: Urine Alcohol Negative (Negative); Urine Barbiturate Negative (Negative); Urine Cocaine Negative (Negative); Urine Methadone Negative (Negative); Urine Opiates Negative (Negative); Urine Phencyclidine Negative (Negative)
[2017-05-16] MEDS: ATORVASTATIN 40 MG TAB PO SCH (21:10)
--- NOTE | 2017-05-16 22:19 | PN ---
PROGRESS NOTE DATE OF SERVICE: 05/16/2017 This 72-year-old woman who was admitted with atrial fibrillation with fast ventricular rate had severe abdominal pain and vomiting. Patient was thought to have acute gastritis. Patient improved significantly yesterday, but today the patient has significant abdominal pain which is radiating from the epigastrium down, as patient is doubling down and abdominal CT scan was noted to show some umbilical hernia. Surgical evaluation has also been sought. The patient is being closely monitored. Past medical history reviewed. REVIEW OF SYSTEMS: CARDIOVASCULAR SYSTEM: No angina. Otherwise as mentioned earlier. RESPIRATORY SYSTEM: As mentioned earlier. GI: As mentioned earlier. : No dysuria or retention NERVOUS SYSTEM: No numbness, weakness.. CURRENT MEDICATIONS: Current medications are reviewed and include: 1. [place] 10 mg q.4 p.r.n. 2. Xanax 0.25 q.8 p.r.n. 3. Eliquis 2.5 mg b.i.d. 4. Lipitor 40 mg at bedtime. 5. Symbicort 160/4.5 two puffs b.i.d. 6. Catapres TTS q.7 days. 7. Colace 100 mg b.i.d. 8. Tambocor 50 mg b.i.d. 9. Lasix 40 mg p.o. daily. 10.Apresoline 10 mg q.6 p.r.n. 11.Dilaudid. 12.Trandate. 13.Zestril 5 mg daily. 14.Antivert. 15.Reglan. 16.Lopressor. 17.Narcan. 18.Nitrostat. 19.Zofran. 20.Protonix. 21.Senokot. 22.Restoril. PHYSICAL EXAMINATION: Patient is alert, oriented x3. Pulse 60, blood pressure 236/102, respiration 18, temperature 96.7, pulse ox 96% on room air. HEENT: Conjunctivae normal. Oral mucosa moist. NECK: No jugular venous distention. No carotid bruit. No lymph node enlargement. CARDIOVASCULAR SYSTEM: S1, S2 muffled. RESPIRATORY SYSTEM: Breath sounds diminished at the bases. A few scattered rhonchi and crackles. ABDOMEN: Soft. Mild diffuse tenderness present. No guarding. No rigidity. No mass palpable. LEGS: No edema. No swelling. NERVOUS SYSTEM: Higher functions as mentioned earlier. Moves all 4 limbs. No focal motor or sensory deficit. LYMPHATICS: No lymph node palpable in neck, axillae or groin. SKIN: No ulcer, rash, bleeding. LABS: Labs at this time show WBC 10.1, hemoglobin 10.8. Other labs are noted. NT proBNP is 15,900. ASSESSMENT: 1. Atrial fibrillation with fast ventricular rate, present on admission. 2. Severe abdominal pain, recurrent. 3. Possible tracheobronchitis. 4. Vomiting with abdominal discomfort with possible acute gastritis. 5. Umbilical hernia without any obstruction. 6. Chest pain, troponin 0.135, indeterminate. Rule out acute [id number]-elevation myocardial infarction. 7. Hypomagnesia. 8. Increased BNP. 9. Increased white count. 10.History of congestive heart failure. 11.Chronic obstructive pulmonary disease. 12.History of cerebrovascular accident, transient ischemic attack. 13.History of deep venous thrombosis. 14.History of hypertension. 15.History of hyperlipidemia. 16.History of degenerative joint disease. 17.History of non-obstructive coronary artery disease. 18.History of paroxysmal atrial fibrillation. RECOMMENDATIONS AND DISCUSSION: In this 72-year-old woman who presented with multiple complex medical issues, we will monitor the patient closely, continue the current medications, continue symptomatic treatment. Otherwise at this time I would recommend continuing the proton pump inhibitors and symptomatic treatment of the pain. I would also recommend a short course of antibiotic for the bronchitis and I would also recommend repeat labs. Surgical evaluation. CT scan of the abdomen and pelvis. I would also recommend a flu swab, which is epidemic at this time. The overall prognosis is guarded because of multiple complex medical issues, which I discussed at length with the staff and the patient. The patient understands and agrees. Further recommendations to follow. See orders for further details. Surgery consultation has been sought. MMODL / IJN: [id number] /
[2017-05-17] MEDS: METOCLOPRAMIDE 5 MG/ML 2 ML VIAL IVP SCH ×4 (00:04→17:33)
[2017-05-17] MEDS: HYDROmorphone 0.5 MG/0.5 ML SYRINGE IVP PRN (03:06)
[2017-05-17 06:29] LABS: Basophils % (A) 0 %; Eosinophils # (A) 0.1 k/uL (0-0.7); Eosinophils % (A) 1 %; HCT 31.7 % (34.0-46.0); HGB 10.2 gm/dL (11.4-16.0); Hypochromasia Slight; Lymphocytes # (A) 1.4 k/uL (1.0-4.8); Lymphocytes % (A) 14 %; MCH 29.1 pg (25.0-35.0); MCHC 32.2 g/dL (31.0-37.0); MCV 90.4 fL (80.0-100.0); Mean Platelet Volume 7.9; Monocytes # (A) 0.8 k/uL (0-1.0); Monocytes % (A) 8 %; Neutrophils # (A) 7.6 k/uL (1.3-7.7); Neutrophils % (A) 75 %; Platelet Count 249 k/uL (150-450); RBC 3.51 m/uL (3.80-5.40); WBC 10.1 k/uL (3.8-10.6)
[2017-05-17] MEDS: HYDROcodone/APAP 10-325MG 1 EACH TAB PO PRN ×4 (06:53→21:30)
[2017-05-17 07:05] LABS: Anion Gap 7 mmol/L; Blood Urea Nitrogen 19 mg/dL (7-17); Calcium 8.3 mg/dL (8.4-10.2); Carbon Dioxide 29 mmol/L (22-30); Chloride 103 mmol/L (98-107); Glucose 87 mg/dL (74-99); Potassium 3.2 mmol/L (3.5-5.1); Sodium 139 mmol/L (137-145)
[2017-05-17] MEDS: APIXABAN 2.5 MG TABLET PO SCH ×2 (08:39→21:29)
[2017-05-17] MEDS: FLECAINIDE 50 MG TAB PO SCH ×2 (08:40→21:30)
[2017-05-17] MEDS: FUROSEMIDE 40 MG TAB PO SCH (08:40)
[2017-05-17] MEDS: LISINOPRIL 5 MG TAB PO SCH (08:40)
[2017-05-17] MEDS: DOCUSATE 100 MG CAP PO SCH ×2 (08:40→21:34)
[2017-05-17] MEDS: MECLIZINE 25 MG TAB PO SCH (08:41)
[2017-05-17] MEDS: METOPROLOL TARTRATE 50 MG TAB PO SCH ×2 (08:41→21:30)
[2017-05-17] MEDS: SENNOSIDES 8.6 MG TAB PO SCH (08:41)
[2017-05-17] MEDS: PANTOPRAZOLE 40 MG/10 ML VIAL IVP SCH ×2 (08:41→21:31)
[2017-05-17] MEDS: SYMBICORT 160-4.5 MCG INHALER INHALATION SCH ×2 (09:26→21:20)
[2017-05-17] MEDS ORDERED: POTASSIUM CHLORIDE ER 20 MEQ TAB.ER PO STA (11:36)
[2017-05-17] MEDS: cloNIDine HCL 0.1 MG TAB PO PRN (12:16)
--- NOTE | 2017-05-17 12:39 | P.PN ---
Subjective Progress Note Date: 05/17/17 Principal diagnosis: Abdominal pain The patient has been admitted to both local hospitals multiple times over the last year and a half with complaints of abdominal pain. She continues to have some pain this morning. No vomiting. No bowel movement. Objective - Vital Signs Vital signs: Vital Signs Temp 97.8 F 05/17/17 12:00 Pulse 67 05/17/17 12:00 Resp 18 05/17/17 12:00 BP 193/87 05/17/17 12:00 Pulse Ox 95 05/17/17 12:00 Intake & Output 05/16/17 05/17/17 05/17/17 18:59 06:59 18:59 Intake Total 480 Output Total 300 Balance 180 Weight 96 kg Intake: Oral 480 Output: Urine 300 Other: Voiding Method Toilet Toilet # Voids 1 1 - Constitutional General appearance: Present: cooperative, no acute distress - Respiratory Respiratory: bilateral: CTA, diminished (Minimally at the bases) - Cardiovascular Rhythm: irregularly irregular - Gastrointestinal General gastrointestinal: Present: normal bowel sounds, soft, tenderness (Mild generalized tenderness without guarding or rebound) - Labs CBC & Chem 7: 05/17/17 05:57 05/17/17 05:57 Labs: Abnormal Lab Results - Last 24 Hours (Table) 05/17/17 05/17/17 Range/Units 05:57 05:57 RBC 3.51 L (3.80-5.40) m/uL Hgb 10.2 L (11.4-16.0) gm/dL Hct 31.7 L (34.0-46.0) % RDW 16.0 H (11.5-15.5) % Potassium 3.2 L (3.5-5.1) mmol/L BUN 19 H (7-17) mg/dL Calcium 8.3 L (8.4-10.2) mg/dL Assessment and Plan (1) Chronic vomiting Current Visit: Yes Status: Acute Code(s): R11.10 - VOMITING, UNSPECIFIED SNOMED Code(s): 05488210 (2) Abdominal pain Current Visit: No Status: Chronic Code(s): R10.9 - UNSPECIFIED ABDOMINAL PAIN SNOMED Code(s): 23546901 (3) MALT (mucosa associated lymphoid tissue) Current Visit: Yes Status: Acute Code(s): C88.4 - EXTRNOD MRGNL ZN B-CELL LYMPH OF [place]UCOS[place]-ASSOC LYMPHOID TISS SNOMED Code(s): 285000127 (4) Umbilical hernia without obstruction and without gangrene Current Visit: Yes Status: Acute Code(s): K42.9 - UMBILICAL HERNIA WITHOUT OBSTRUCTION OR GANGRENE SNOMED Code(s): 8301042 (5) Atrial fibrillation with RVR Current Visit: Yes Status: Acute Code(s): I48.91 - UNSPECIFIED ATRIAL FIBRILLATION SNOMED Code(s): 754779963398920 (6) Chest pain Current Visit: Yes Status: Acute Code(s): R07.9 - CHEST PAIN, UNSPECIFIED SNOMED Code(s): 53044957 (7) Nondiabetic gastroparesis Current Visit: Yes Status: Acute Code(s): K31.84 - GASTROPARESIS SNOMED Code(s): 31092697 Plan: The patient has had an extensive workup of this over the last year and a half. She's had [address] multiple [address] scans. She underwent laparoscopic cholecystectomy by Dr. Ruth last spring with no improvement in symptoms. At this point we don't have a good surgical cause for her pain. At recommend reevaluation by oncology. She seen Dr. Larson for this, last time was about a month ago. Also GI evaluation. She is currently nonsurgical and I will defer further workup and treatment to medicine.
--- NOTE | 2017-05-17 14:53 | CONS ---
CONSULTATION This patient is admitted with paroxysmal atrial fibrillation and nausea and vomiting. Patient's vomiting has improved. She is still nauseated and there is some abdominal pain noted. CT scan of the abdomen is normal. Surgical consultation is noted. Patient is being treated for gastroparesis. Patient remains stable cardiac-tiwari. We will now see her p.r.n. MMELDON / ANAMARIAN: [id number] /
[2017-05-17] MEDS: SODIUM CHLORIDE 0.9% 1,000 ML IV SCH (15:49)
[2017-05-17] MEDS: hydrALAZINE HCL 20 MG/ML 1 ML VIAL IVP PRN (16:02)
[2017-05-17] MEDS: LEVOFLOXACIN 500MG-D5W PMX 500 MG in DEXTROSE/WATER 1 100ML.BAG IVPB SCH (17:33)
--- NOTE | 2017-05-17 18:43 | PN ---
PROGRESS NOTE DATE OF SERVICE: 05/17/2017 Patient is seen in the room, continues to complain of intractable nausea and vomiting, but claims she feels like she could start eating clear liquid diet. VITAL SIGNS: Temperature 97.8, pulse 67, respirations 18, blood pressure 93/87, O2 saturation 95%. GENERAL APPEARANCE: Patient is awake, alert. Patient is in no acute distress. HEENT: Atraumatic, normocephalic. Pupils equal and reactive to light. Extraocular movements intact. Buccal mucosa is fair. NECK: Supple without goiter or lymphadenopathy. JVD is negative. No carotid bruit heard. RESPIRATORY: Lungs decreased breath sounds bilaterally with scattered rhonchi. CARDIOVASCULAR: Irregularly irregular, controlled rate. ABDOMEN/GI: Abdomen is soft, nontender, nondistended. Bowel sounds positive. EXTREMITIES: 1+ edema bilateral lower extremities. Moves all 4 extremities. No rashes or pigmentation. NEUROLOGICAL EXAMINATION: Cranial nerves 2-12 grossly intact. No gross motor or sensory deficit. SKIN: Warm, dry and intact. LAB: CBC: White blood count of 10.1, hemoglobin 10.2, hematocrit 31.7, platelet count of 249. Chemical profile: Sodium 139, potassium 3.2, chloride 103, bicarb 29, BUN 19, creatinine 1, glucose 87. ASSESSMENT: 1. Hypokalemia. We will supplement patient with oral potassium. 2. Intractable nausea. Patient will be started. Continue with Zofran. Patient will be started on oral potassium supplementation. 3. Atrial fibrillation with rapid ventricular rate. The patient is rate controlled now. 4. Severe abdominal pain. Patient has been evaluated by surgery and the patient was not designated as acute abdomen. The patient's Reglan was increased. 5. History of umbilical hernia. No obstruction. 6. Chest pain. Acute myocardial infarction ruled out. 7. Hypomagnesemia. 8. Elevated BNP, possible acute exacerbation of congestive heart failure. 9. Chronic obstructive pulmonary disease. 10.Hypertension. 11.Hyperlipidemia. 12.Degenerative joint disease. 13.History of paroxysmal atrial fibrillation. The patient remains on telemetry. Will start patient on a clear liquid diet and adjust as tolerated. The patient remains on Reglan and proton pump inhibitors. Antibiotics are being continued for acute bronchitis. Surgical evaluation is seen and appreciated. MMODL / IJN: [id number] /
[2017-05-17] MEDS: ATORVASTATIN 40 MG TAB PO SCH (21:29)
[2017-05-18] MEDS: METOCLOPRAMIDE 5 MG/ML 2 ML VIAL IVP SCH ×4 (00:09→17:27)
[2017-05-18] MEDS: HYDROcodone/APAP 10-325MG 1 EACH TAB PO PRN ×4 (04:49→19:48)
[2017-05-18] MEDS: ONDANSETRON 4 MG/2 ML VIAL IVP PRN ×2 (04:53→15:41)
[2017-05-18] MEDS: SYMBICORT 160-4.5 MCG INHALER INHALATION SCH ×2 (08:54→21:40)
[2017-05-18] MEDS: APIXABAN 2.5 MG TABLET PO SCH ×2 (09:11→21:41)
[2017-05-18] MEDS: FLECAINIDE 50 MG TAB PO SCH ×2 (09:12→21:41)
[2017-05-18] MEDS: DOCUSATE 100 MG CAP PO SCH ×2 (09:12→21:41)
[2017-05-18] MEDS: LISINOPRIL 5 MG TAB PO SCH (09:12)
[2017-05-18] MEDS: FUROSEMIDE 40 MG TAB PO SCH (09:12)
[2017-05-18] MEDS: MECLIZINE 25 MG TAB PO SCH (09:13)
[2017-05-18] MEDS: PANTOPRAZOLE 40 MG/10 ML VIAL IVP SCH ×2 (09:13→21:43)
[2017-05-18] MEDS: METOPROLOL TARTRATE 50 MG TAB PO SCH ×2 (09:13→22:32)
[2017-05-18] MEDS: SENNOSIDES 8.6 MG TAB PO SCH (09:13)
[2017-05-18] MEDS: ALPRAZolam 0.25 MG TAB PO PRN (09:17)
[2017-05-18] MEDS: hydrALAZINE HCL 20 MG/ML 1 ML VIAL IVP PRN (09:37)
[2017-05-18] MEDS ORDERED: amLODIPine 10 MG TAB PO SCH (10:00)
[2017-05-18] MEDS: amLODIPine 5 MG TAB PO SCH ×2 (10:58→22:32)
[2017-05-18] MEDS: cloNIDine HCL 0.1 MG TAB PO PRN (11:55)
[2017-05-18] MEDS ORDERED: cloNIDine 0.3 MG/24HR PATCH 1 PATCH PATCH TRANSDERM SCH (12:00)
[2017-05-18] MEDS: SODIUM CHLORIDE 0.9% 1,000 ML IV SCH (17:12)
[2017-05-18] MEDS: LEVOFLOXACIN 500MG-D5W PMX 500 MG in DEXTROSE/WATER 1 100ML.BAG IVPB SCH (17:28)
[2017-05-18] MEDS: ATORVASTATIN 40 MG TAB PO SCH (21:40)
--- NOTE | 2017-05-18 21:45 | PN ---
PROGRESS NOTE DATE OF SERVICE: 05/18/2017. Patient complains of diarrhea today. He continues to have nausea. At times, takes Zofran every 8 hours, but it wears off earlier than 8 hours is over. Her vital signs: Temperature 98.8, pulse 87, respiration 18, blood pressure 194/86, and O2 saturation 96% on room air. The patient is awake, alert and oriented. She is in no acute distress. HEENT atraumatic, normocephalic. Pupils equal and reactive to light. Extraocular movements intact. Buccal mucosa is fair. Neck is supple, no goiter, no lymphadenopathy. JVD is negative. No carotid bruit heard. Lungs decreased breath sounds bilaterally. Heart: Cardiovascular heart is irregularly irregular. Rate controlled. Abdomen/GI: Abdomen is soft, nontender, nondistended. Bowel sounds positive. Extremities 1+ edema both lower extremities, move all extremities with no rashes. Neurological EXAMINATION: Cranial nerves 2-12 grossly intact. No gross motor or sensory deficit. Skin is warm and dry and intact. LABS AND X-RAY: CBC, white blood count of 10.1, hemoglobin 10.2, hematocrit 31.7, platelet count of 249. Chemical profile sodium 139, potassium 2.2, chloride 103, bicarb 29, BUN 9, creatinine 101. ASSESSMENT: 1. Hypokalemia, it was supplemented with oral potassium. Will repeat electrolytes tomorrow morning. 2. Intractable nausea with diarrhea, rule out C diff colitis. Will change the patient's Zofran to every 4 hours. 3. Atrial fibrillation with a RVR. Patient is heart rate controlled at this time. 4. Labile hypertension, patient's blood pressure is fluctuating in between extremely high and low numbers. Cardiology is following. Await Cardiology to adjust medications to prevent hypotension. 5. Severe abdominal pain. The patient has been ruled out for acute abdomen. C diff is sent and is pending. 6. History of umbilical hernia. No obstruction. 7. Chest pain. An acute CT ruled out. 8. Hypomagnesemia. Patient is stable. 9. Elevated BNP and possible acute exacerbation congestive heart failure, cardiology is following. 10.Hypertension as above. 11.Hyperlipidemia, stable on current medications. 12.Degenerative joint disease. The patient continues to continues to complain of severe nausea and will increase the Zofran and continue with the Reglan. Await further recommendations from the specialists for possible discharge planning. MMODL / IJN: [id number] /
[2017-05-19] MEDS: METOCLOPRAMIDE 5 MG/ML 2 ML VIAL IVP SCH ×5 (00:32→23:19)
[2017-05-19] MEDS: ALPRAZolam 0.25 MG TAB PO PRN (01:39)
[2017-05-19] MEDS: HYDROcodone/APAP 10-325MG 1 EACH TAB PO PRN ×3 (04:36→14:44)
[2017-05-19 06:32] LABS: Anisocytosis Slight; Basophils % (A) 1 %; Eosinophils # (A) 0.1 k/uL (0-0.7); Eosinophils % (A) 2 %; HCT 34.9 % (34.0-46.0); Hypochromasia Slight; Lymphocytes # (A) 1.8 k/uL (1.0-4.8); Lymphocytes % (A) 23 %; MCH 29.3 pg (25.0-35.0); MCHC 31.5 g/dL (31.0-37.0); MCV 92.8 fL (80.0-100.0); Mean Platelet Volume 7.2; Monocytes # (A) 0.7 k/uL (0-1.0); Monocytes % (A) 9 %; Neutrophils # (A) 4.9 k/uL (1.3-7.7); Neutrophils % (A) 63 %; Platelet Count 241 k/uL (150-450); RBC 3.76 m/uL (3.80-5.40); RDW 16.7 % (11.5-15.5); WBC 7.8 k/uL (3.8-10.6)
[2017-05-19 06:49] LABS: Calcium 8.7 mg/dL (8.4-10.2); Potassium 3.1 mmol/L (3.5-5.1)
--- NOTE | 2017-05-19 07:37 | PN ---
PROGRESS NOTE This patient is admitted with paroxysmal atrial flutter and abdominal pain. Patient continues to show intermittent episodes of abdominal pain. The Surgery was consulted and no surgical abdomen is found. Exact etiology of patient's abdominal pain is unclear. I will request a GI consultation. Patient's blood pressure this morning was elevated and we will put the patient on clonidine patch. The blood pressure this morning was 194/86 mm mmHg. First and second heart sounds are normal. Lungs are clinically clear to auscultation and percussion. Abdomen,.mild abdominal tenderness persists. We will continue the patient on clonidine patch, Amlodipine 5 mg b.i.d.. hydralazine p.r.n. and metoprolol 50 mg b.i.d. MMODL / IJN: [id number] /
[2017-05-19] MEDS: amLODIPine 5 MG TAB PO SCH ×2 (08:14→21:36)
[2017-05-19] MEDS: APIXABAN 2.5 MG TABLET PO SCH ×2 (08:14→21:36)
[2017-05-19] MEDS: LISINOPRIL 10 MG TAB PO SCH (08:15)
[2017-05-19] MEDS: FUROSEMIDE 40 MG TAB PO SCH (08:15)
[2017-05-19] MEDS: FLECAINIDE 50 MG TAB PO SCH ×2 (08:15→21:37)
[2017-05-19] MEDS: DOCUSATE 100 MG CAP PO SCH ×2 (08:15→21:37)
[2017-05-19] MEDS: PANTOPRAZOLE 40 MG/10 ML VIAL IVP SCH ×2 (08:15→21:38)
[2017-05-19] MEDS: METOPROLOL TARTRATE 50 MG TAB PO SCH ×2 (08:15→21:37)
[2017-05-19] MEDS: MECLIZINE 25 MG TAB PO SCH (08:15)
[2017-05-19] MEDS: SENNOSIDES 8.6 MG TAB PO SCH (08:16)
[2017-05-19] MEDS: ONDANSETRON 4 MG/2 ML VIAL IVP PRN (08:16)
[2017-05-19] MEDS: SYMBICORT 160-4.5 MCG INHALER INHALATION SCH ×2 (08:47→20:44)
[2017-05-19] MEDS ORDERED: METOCLOPRAMIDE 5 MG/ML 2 ML VIAL IVP STA (10:12)
[2017-05-19] MEDS: PROMETHAZINE INJ 25 MG in SODIUM CHLORIDE 0.9% 50 ML IVPB SCH ×3 (14:38→23:19)
--- NOTE | 2017-05-19 14:39 | PN ---
PROGRESS NOTE This patient again had an episode of mid-abdominal pain associated with nausea and vomiting. Patient was tachycardic and blood pressure went up. First and second heart sounds are normal. Lungs are clear to auscultation and percussion. Patient has a mild diffuse abdominal tenderness, too. Exact etiology of this patient's abdominal pain and nausea and vomiting is unclear. Surgery has ruled out surgical abdomen. We will suggest GI consultation. MMODL / IJN: [id number] /
--- NOTE | 2017-05-19 15:30 | CONS ---
CONSULTATION DATE OF SERVICE: 05/19/2017 REQUESTING PHYSICIAN: Dr. Mckeon. REASON FOR CONSULTATION: Abdominal pain, nausea, vomiting. HISTORY OF PRESENT ILLNESS: The patient is a 72-year-old, pleasant white female admitted to the hospital with 2 counts of epigastric pain followed by nausea, vomiting that started about 3 to 4 days ago. Following admission to the hospital, she was diagnosed with A. fib with rapid ventricular heart rate. She was started on IV Protonix and IV Reglan for symptoms and this morning she still has some epigastric discomfort as well as a couple of episodes of nausea, vomiting. Patient states that she has been having these symptoms on and off for the last 1 year duration. She had been in the emergency room in March of 2017 for similar symptoms. She was evaluated by me, had an upper endoscopy done at that time, which showed evidence of mild gastritis and esophagitis. She has since been on Protonix 40 mg daily on an outpatient basis. Patient states that after her discharge from the hospital in March, she did reasonably well and started having rectal symptoms 1 day prior to this hospitalization. She denies any recent NSAID use. She does not recall being on any new medications since this started in the last couple of months. No significant change in her bowel habits. Denies any melena or rectal bleeding. PAST MEDICAL HISTORY: History of hypertension, diabetes, A. fib on Eliquis, gastroesophageal reflux disease, hypertension, hyperlipidemia. MEDICATIONS: At home include Nitrostat, Ultram, Senokot, Zofran, Xanax, Protonix, Lopressor, Reglan, [place], Antivert, Zestril, Lasix, Lipitor, Eliquis, Catapres, and Ellipta. ALLERGIES: SULFA. SOCIAL HISTORY: No smoking or alcohol use. FAMILY HISTORY: Unremarkable. REVIEW OF SYSTEMS: CARDIOPULMONARY: No chest pain, shortness of breath. GENITOURINARY: No dysuria or hematuria. MUSCULOSKELETAL: Unremarkable. SKIN: Unremarkable. ENDOCRINE: Unremarkable. PSYCHIATRIC: Unremarkable. NEUROLOGY: Unremarkable. ENT: Vision unremarkable. CONSTITUTIONAL: No recent weight loss. PHYSICAL EXAMINATION: She appears comfortable, in no apparent distress. Vital signs are stable. Blood pressure is 109/51, pulse rate 70, temperature 97.8. HEENT EXAMINATION: Unremarkable. Conjunctivae are pink, sclerae nonicteric. Oral cavity no lesions. NECK: No JVD or lymph node enlargement. CHEST: Clear to auscultation. HEART: Regular rate and rhythm. ABDOMEN: Soft. Bowel sounds are positive. There is mild tenderness in the epigastric area. EXTREMITIES: No pedal edema. SKIN: No rashes. NEURO: Alert and oriented x3. No focal deficits. She did have a CT of the abdomen and pelvis done on May 16, which was unremarkable. LABS: Revealed normal basic metabolic panel, normal amylase and lipase. Normal LFTs. IMPRESSION: This is a patient who was admitted to the hospital with epigastric pain associated with nausea, vomiting that started about 3 to 4 days ago. At the time of hospitalization, she was diagnosed with A. fib and RVR and was started on antiarrhythmics. Since in the hospital, her symptoms have been progressively getting worse. The patient had a similar hospitalization in March of 2017, at which time an upper endoscopy was performed by me, which showed mild antral gastritis and LA grade reflux esophagitis. She has been on Protonix as well and Reglan since then. Despite this, continues to remain symptomatic, most likely her symptoms are related to medication induced side effects, but of course possibility of gastroparesis cannot be entirely excluded. RECOMMENDATIONS: 1. Continue with IV Protonix b.i.d. 2. Continue with antiemetics including IV Reglan as needed. 3. She was advised to try and do small frequent meals. 4. I will schedule her for a small bowel study for gastric emptying scan tomorrow to evaluate for evidence of gastroparesis. 5. No need for repeat endoscopy at this present time and will follow her closely during her hospital stay. Thank you for this consultation. MMODL / IJN: [id number] /
[2017-05-19] MEDS: hydrALAZINE HCL 20 MG/ML 1 ML VIAL IVP PRN (16:25)
[2017-05-19] MEDS: LEVOFLOXACIN 500MG-D5W PMX 500 MG in DEXTROSE/WATER 1 100ML.BAG IVPB SCH (18:10)
[2017-05-19] MEDS: ATORVASTATIN 40 MG TAB PO SCH (21:36)
--- NOTE | 2017-05-19 22:22 | PN ---
PROGRESS NOTE DATE OF SERVICE: 05/19/17 The patient is seen in the room. Continues to complain of nausea and vomiting just the threw up the gastric contents of the morning's breakfast. Family is at bedside. SYSTEMIC EXAMINATION: Patient is resting in bed. She is in no acute distress at this point. VITAL SIGNS: Temperature 97.8, pulse 70, respiration 18, blood pressure 109/51. HEENT: Atraumatic, normocephalic. Pupils equal, round and reactive to light. Extraocular movements intact. Buccal mucosa is clear. NECK: Supple without lymphadenopathy. There is no JVD. No carotid bruit heard. Lungs are clear to auscultation. No rales, rhonchi, or wheezes. Heart is irregularly irregular. ABDOMEN: Soft, obese, nontender, nondistended. Bowel sounds positive. EXTREMITIES: No edema, clubbing, cyanosis. Skin is fair intact. No rashes or pigmentation. Neurological examination: Patient is awake, alert, oriented x3. She has no gross motor or sensory deficit. LAB DATA: White blood count 9.8, hemoglobin 11 and hematocrit 34.9, and platelet count of 241. Chemical profile sodium 140, potassium 3.1, chloride 103, bicarb 26, BUN 18, creatinine 1.12. Urine toxicology is negative. ASSESSMENT: 1. Intractable nausea, vomiting, abdominal pain, Gastroenterology consultation is done on the patient. The patient has had extensive gastrointestinal workup on previous admission. Will discuss in detail with the Gastroenterology. They are recommending the gastric emptying study, possible gastroparesis. 2. Hypokalemia. We will supplement with oral potassium and repeat electrolytes tomorrow morning. 3. Atrial fibrillation with RVR. Patient's heart rate is controlled. 4. Labile hypertension. The patient's blood pressure fluctuates with extreme high and low numbers. Cardiology is following. I discussed with Cardiology. They are recommending pain and nausea control. Recommending Gastroenterology consultation for abdominal pain and nausea, claiming fluctuations in the blood pressure secondary to pain. 5. Severe abdominal pain. Patient has been followed by surgery. Acute abdomen has been ruled out. 6. Chest pain. Acute Myocardial infarction ruled out. 7. Hypomagnesemia. Patient stable. 8. Elevated BNP. 9. Acute exacerbation of congestive heart failure, clinically stable. 10.Hypertension. 11.Hyperlipidemia. 12.Degenerative joint disease. As indicated above, patient has been seen by Gastroenterology and they are recommending the patient follow up. The patient did get gastric emptying study done to evaluate the intractable nausea and vomiting. The patient remains on oral diet. We will continue to follow I and Os, electrolytes and renal function. We will make adjustments according to the followup labs and the clinical course. HILARIAL / ANAMARIAN: [id number] /
[2017-05-20] MEDS: HYDROcodone/APAP 10-325MG 1 EACH TAB PO PRN ×3 (00:18→22:23)
[2017-05-20] MEDS: ALPRAZolam 0.25 MG TAB PO PRN ×2 (00:18→22:23)
[2017-05-20] MEDS: METOCLOPRAMIDE 5 MG/ML 2 ML VIAL IVP SCH (06:22)
[2017-05-20] MEDS: SYMBICORT 160-4.5 MCG INHALER INHALATION SCH ×2 (08:04→19:51)
[2017-05-20] MEDS: PROMETHAZINE INJ 25 MG in SODIUM CHLORIDE 0.9% 50 ML IVPB SCH ×3 (09:51→17:22)
[2017-05-20] MEDS: METOPROLOL TARTRATE 50 MG TAB PO SCH (11:16)
[2017-05-20] MEDS: APIXABAN 2.5 MG TABLET PO SCH ×2 (11:17→22:22)
[2017-05-20] MEDS: PANTOPRAZOLE 40 MG/10 ML VIAL IVP SCH ×2 (11:17→22:22)
[2017-05-20] MEDS: LISINOPRIL 10 MG TAB PO SCH (11:17)
[2017-05-20] MEDS: FLECAINIDE 50 MG TAB PO SCH ×2 (11:18→22:21)
[2017-05-20] MEDS: SENNOSIDES 8.6 MG TAB PO SCH (11:18)
[2017-05-20] MEDS: MECLIZINE 25 MG TAB PO SCH (11:18)
[2017-05-20] MEDS: FUROSEMIDE 40 MG TAB PO SCH (11:19)
[2017-05-20] MEDS: amLODIPine 5 MG TAB PO SCH (11:19)
[2017-05-20] MEDS: DOCUSATE 100 MG CAP PO SCH ×2 (11:19→22:22)
--- NOTE | 2017-05-20 11:27 | P.PN ---
Subjective Progress Note Date: 05/20/17 This is a 72-year-old female who follows with Dr. Patel in the office, she has a history of paroxysmal atrial fibrillation, prior DVT, COPD, hypertension, patient underwent a cardiac catheterization in March 2017 which revealed normal coronary arteries with mild spasm, hypokinesia of the inferior basal region. She presents to the hospital on this occasion with several episodes of vomiting, she also states that she was having a sharp midsternal chest discomfort feeling like her heart was racing fast.Initial EKG showed atrial fibrillation with a rapid ventricular response , patient converted to normal sinus rhythm through the night last night. subsequent EKG shows a sinus bradycardia with a heart rate in the 50s. Chest x-ray shows chronic changes and mild cardiomegaly without acute pulmonary process. Resolution of small bilateral pleural effusions is noted. Acute abdominal series was performed which did not reveal any acute radiographic process. Blood pressure on admission 225/94, heart rate in the 130s, 98% on 2 L of oxygen. At pressure this morning 100/58 with a heart rate in the 50s to 60s. White Blood cell count on admission 19.7, 14.3 this morning. Hemoglobin on admission 13, 10.5 this morning. Platelet count 249. Sodium 140, potassium 4.2 , chloride 110, BUN 23, creatinine 0.9. TSH and free T4 normal. Troponin 0.023 , 0.13, 0.19. Influenza A and B-. The time of my examination this morning, patient denies any chest discomfort or palpitations. Still feels mildly nauseated. 05/20/2017 Patient seen and examined this morning, continues to have nausea with episode of vomiting. Currently being followed by GI service. Blood pressure 150/80, heart rate in the 80s, 94% on room air. Potassium today 3.1, BUN 18, creatinine 1.1. Objective - Vital Signs Vital signs: Vital Signs Temp 96.9 F L 05/20/17 04:00 Pulse 81 05/20/17 04:00 Resp 18 05/20/17 04:00 BP 151/81 05/20/17 04:00 Pulse Ox 94 L 05/20/17 04:00 Intake & Output 05/19/17 05/20/17 05/20/17 18:59 06:59 18:59 Intake Total 360 300 480 Output Total 250 250 Balance 110 50 480 Weight 97.5 kg Intake: Intake, IV Titration 300 Amount Levofloxacin 500Mg-D5w 100 Pmx 500 mg In Dextrose/ Water 1 100ml.bag @ 100 mls/hr IVPB Q24H [facility] Rx#: [id number] Promethazine Inj 25 mg In 200 Sodium Chloride 0.9% 50 ml @ 200 mls/hr IVPB Q6HR [facility] Rx#:[id number] Oral 360 480 Output: Urine 250 250 Other: Voiding Method Toilet # Voids 1 1 - Exam PHYSICAL EXAMINATION: HEENT: Head is atraumatic, normocephalic. Pupils equal, round. Neck is supple. There is no elevated jugular venous pressure. HEART EXAMINATION: Heart S1, S2 normal. No murmur or gallop heard. CHEST EXAMINATION: Lungs are clear to auscultation and precussion. No chest wall tenderness is noted on palpation or with deep breathing. ABDOMEN: Soft, nontender. Bowel sounds are heard. No organomegaly noted. EXTREMITIES: 2+ peripheral pulses with no evidence of peripheral edema and no calf tenderness noted. NEUROLOGIC patient is awake, alert and oriented -3. . - Labs CBC & Chem 7: 05/19/17 05:58 05/19/17 05:58 Assessment and Plan Plan: Assessment and plan #1 symptoms of persistent nausea and vomiting associated abdominal discomfort, possible acute gastritis, elevated white blood cell count #2 symptoms of chest pain or palpitations, and initial EKG on presentation here showed atrial fibrillation with a rapid ventricular response. Patient underwent a cardiac catheterization in March 2017 which did not reveal any obstructive coronary artery disease, suggestive possible spasm. #3 hypertensive urgency #4 paroxysmal atrial fibrillation, on Eliquis for anticoagulation #5 history of DVT #6 peripheral vascular disease #7 prior CVA #8 prior history of smoking PLan From cardiology's perspective, we'll continue current medications. DNP note has been reviewed, I agree with a documented findings and plan of care. Patient was seen and examined.
--- NOTE | 2017-05-20 13:04 | P.PN ---
Subjective Progress Note Date: 05/20/17 Principal diagnosis: 72-year-old female admitted with epigastric pain nausea vomiting, A. fib with RVR. Tolerating full liquids today without emesis. Still reports mild midepigastric discomfort. Recent upper endoscopy March 2017 unremarkable. Objective - Vital Signs Vital signs: Vital Signs Temp 96.9 F L 05/20/17 04:00 Pulse 81 05/20/17 04:00 Resp 18 05/20/17 04:00 BP 151/81 05/20/17 04:00 Pulse Ox 94 L 05/20/17 04:00 Intake & Output 05/19/17 05/20/17 05/20/17 18:59 06:59 18:59 Intake Total 360 300 480 Output Total 250 250 Balance 110 50 480 Weight 97.5 kg Intake: Intake, IV Titration 300 Amount Levofloxacin 500Mg-D5w 100 Pmx 500 mg In Dextrose/ Water 1 100ml.bag @ 100 mls/hr IVPB Q24H [facility] Rx#: [id number] Promethazine Inj 25 mg In 200 Sodium Chloride 0.9% 50 ml @ 200 mls/hr IVPB Q6HR [facility] Rx#:[id number] Oral 360 480 Output: Urine 250 250 Other: Voiding Method Toilet # Voids 1 1 - Exam General appearance: The patient is alert, oriented, in no acute distress. HET: Head is normocephalic and atraumatic. Pupils are equal and reactive. Oropharynx is clear without lesions. Neck: Supple without lymphadenopathy. Trachea midline. Heart: S1 S2. Lungs: No crackles or wheezes are heard. Abdomen: Soft, mild midepigastric tenderness, nondistended with bowel sounds. No peritoneal signs. No palpable organomegaly or masses. Extremities: Normal skin color and turgor. No cyanosis, rash, ulceration, clubbing, or edema. Radial and pedal pulses are 2/4 bilaterally. Neurological: No focal deficits. Strength and sensation are grossly intact. - Labs CBC & Chem 7: 05/19/17 05:58 05/19/17 05:58 Assessment and Plan (1) Epigastric pain Current Visit: Yes Status: Acute Code(s): R10.13 - EPIGASTRIC PAIN SNOMED Code(s): 32303592 (2) Nausea & vomiting Current Visit: Yes Status: Acute Code(s): R11.2 - NAUSEA WITH VOMITING, UNSPECIFIED SNOMED Code(s): 86898346 (3) Paroxysmal atrial fibrillation Current Visit: No Status: Acute Code(s): I48.0 - PAROXYSMAL ATRIAL FIBRILLATION SNOMED Code(s): 221005855 (4) MALT (mucosa associated lymphoid tissue) Narrative/Plan: History of small bowel resection and abdominal mass biopsy low grade MALT Current Visit: Yes Status: Resolved Code(s): C88.4 - EXTRNOD MRGNL ZN B- CELL LYMPH OF [place] LYMPHOID TISS SNOMED Code(s): 240147027 Plan: 1. Gastric emptying study in a.m. Hold Prasanna for preparation of study. Continue supportive measures and present medications. Nothing by mouth after midnight. We'll continue to follow. Assessment and plan a care discussed with Dr. Haider
[2017-05-20] MEDS ORDERED: LEVOFLOXACIN 250MG-D5W PMX 250 MG in DEXTROSE/WATER 1 50ML.BAG IVPB SCH (18:00)
[2017-05-20 20:08] VITALS: RESP 18
[2017-05-20] MEDS: ATORVASTATIN 40 MG TAB PO SCH (22:22)
--- NOTE | 2017-05-21 06:30 | PN ---
PROGRESS NOTE DATE OF SERVICE: 05/20/2017 The patient continues to complain of epigastric pain and nausea and vomiting. Claims that she did have some liquid diet and no vomiting since morning. VITAL SIGNS: Temperature 96.9, pulse 81, respirations 18, blood pressure 151/81 , O2 saturation 91%. GENERAL: Patient is awake, alert, oriented. She is in no acute distress. HEENT: Atraumatic, normocephalic. Pupils equal and react to light. Extraocular movements intact. Buccal mucosa is moist. Neck is supple. No goiter or lymphadenopathy. JVD is negative. No carotid bruit heard. LUNGS: Clear to auscultation. No rales, rhonchi, or wheezes. Heart is regular rate and rhythm without any murmur or gallop. Abdomen is soft. Positive mid epigastric tenderness. Nondistended. Bowel sounds positive. No peritoneal signs. EXTREMITIES: No edema clubbing, cyanosis. NEUROLOGIC: Cranial nerves 2 through 12 grossly intact. No gross motor or sensory deficit. LABS: CBC, white blood count of 7.8, hemoglobin 11, hematocrit 34.9, and platelet count of 241. Chemical profile, sodium 140, potassium 3.1, chloride 103, bicarb 26, BUN 18, creatinine 1.12 and glucose 103. ASSESSMENT: 1. Abdominal pain with intractable nausea and vomiting. Patient is being followed by GI and GI has recommended gastric emptying for possible gastroparesis. Patient is Reglan and Zofran. Further recommendations after the test is done. 2. Hypokalemia. The patient was supplemented. Will repeat potassium level. 3. Atrial fibrillation with rapid ventricular response, clinically stable. 4. Acute exacerbation of congestive heart failure. Again, clinically stable. 5. Uncontrolled hypertension. Will monitor blood pressure closely and adjust medication if remains elevated. 6. Hyperlipidemia. 7. Degenerative joint disease. Further recommendation once gastric emptying study is completed. MMODL / IJN: [id number] / MTDD
[2017-05-21] MEDS: METOPROLOL TARTRATE 50 MG TAB PO SCH ×2 (06:35→08:00)
[2017-05-21] MEDS: amLODIPine 5 MG TAB PO SCH ×2 (06:35→08:02)
[2017-05-21] MEDS: PROMETHAZINE INJ 25 MG in SODIUM CHLORIDE 0.9% 50 ML IVPB SCH ×2 (06:36→06:37)
[2017-05-21] MEDS: HYDROcodone/APAP 10-325MG 1 EACH TAB PO PRN ×2 (07:57→11:58)
[2017-05-21] MEDS: DOCUSATE 100 MG CAP PO SCH (08:01)
[2017-05-21] MEDS: APIXABAN 2.5 MG TABLET PO SCH (08:01)
[2017-05-21] MEDS: LISINOPRIL 10 MG TAB PO SCH (08:02)
[2017-05-21] MEDS: FLECAINIDE 50 MG TAB PO SCH (08:02)
[2017-05-21] MEDS: FUROSEMIDE 40 MG TAB PO SCH (08:02)
[2017-05-21] MEDS: MECLIZINE 25 MG TAB PO SCH (08:03)
[2017-05-21] MEDS: SENNOSIDES 8.6 MG TAB PO SCH (08:03)
--- NOTE | 2017-05-21 08:37 | P.PN ---
Subjective Progress Note Date: 05/21/17 Principal diagnosis: Nausea vomiting 72-year-old female admitted with epigastric pain nausea vomiting, A. fib with RVR. Tolerating advance diet today without emesis. Very mild midepigastric discomfort. Recent upper endoscopy March 2017 unremarkable. Patient declined gastric emptying study secondary to withholding pain medications. Objective - Vital Signs Vital signs: Vital Signs Temp 97.0 F L 05/21/17 00:00 Pulse 58 L 05/21/17 04:00 Resp 18 05/21/17 04:00 BP 71/45 05/21/17 04:00 Pulse Ox 93 L 05/21/17 04:00 Intake & Output 05/20/17 05/21/17 05/21/17 18:59 06:59 18:59 Intake Total 660 240 Output Total 1200 Balance -540 240 Weight 94.8 kg Intake: Oral 660 240 Output: Urine 1200 Other: Voiding Method Toilet Toilet # Voids 1 1 # Bowel Movements 1 - Exam General appearance: The patient is alert, oriented, in no acute distress. HET: Head is normocephalic and atraumatic. Pupils are equal and reactive. Oropharynx is clear without lesions. Neck: Supple without lymphadenopathy. Trachea midline. Heart: S1 S2. Lungs: No crackles or wheezes are heard. Abdomen: Soft, mild midepigastric tenderness, nondistended with bowel sounds. No peritoneal signs. No palpable organomegaly or masses. Extremities: Normal skin color and turgor. No cyanosis, rash, ulceration, clubbing, or edema. Radial and pedal pulses are 2/4 bilaterally. Neurological: No focal deficits. Strength and sensation are grossly intact. - Labs CBC & Chem 7: 05/19/17 05:58 05/19/17 05:58 Assessment and Plan (1) Epigastric pain Current Visit: Yes Status: Acute Code(s): R10.13 - EPIGASTRIC PAIN SNOMED Code(s): 66564335 (2) Nausea & vomiting Narrative/Plan: Possible gastroparesis Current Visit: Yes Status: Acute Code(s): R11.2 - NAUSEA WITH VOMITING, UNSPECIFIED SNOMED Code(s): 20394515 (3) Paroxysmal atrial fibrillation Current Visit: No Status: Acute Code(s): I48.0 - PAROXYSMAL ATRIAL FIBRILLATION SNOMED Code(s): 193501425 (4) MALT (mucosa associated lymphoid tissue) Narrative/Plan: History of small bowel resection and abdominal mass biopsy low grade MALT Current Visit: Yes Status: Resolved Code(s): C88.4 - EXTRNOD MRGNL ZN B- CELL LYMPH OF [place] LYMPHOID TISS SNOMED Code(s): 858776834 Plan: 1. Gastric emptying study as an outpatient Continue Reglan 10 mg before meals meals on discharge as well as Protonix 40 mg twice daily. Return to office in 7 -10 days for reevaluation. Discharge per medicine. We'll follow as needed. Assessment and plan of care discussed with Dr. Haider
[2017-05-21 08:41] VITALS: TEMP 97
[2017-05-21] MEDS ORDERED: PANTOPRAZOLE 40 MG TABLET PO SCH (09:00)
[2017-05-21] MEDS: SYMBICORT 160-4.5 MCG INHALER INHALATION SCH (09:30)
--- NOTE | 2017-05-21 11:24 | P.PN ---
Subjective Progress Note Date: 05/21/17 This is a 72-year-old female who follows with Dr. Patel in the office, she has a history of paroxysmal atrial fibrillation, prior DVT, COPD, hypertension, patient underwent a cardiac catheterization in March 2017 which revealed normal coronary arteries with mild spasm, hypokinesia of the inferior basal region. She presents to the hospital on this occasion with several episodes of vomiting, she also states that she was having a sharp midsternal chest discomfort feeling like her heart was racing fast.Initial EKG showed atrial fibrillation with a rapid ventricular response , patient converted to normal sinus rhythm through the night last night. subsequent EKG shows a sinus bradycardia with a heart rate in the 50s. Chest x-ray shows chronic changes and mild cardiomegaly without acute pulmonary process. Resolution of small bilateral pleural effusions is noted. Acute abdominal series was performed which did not reveal any acute radiographic process. Blood pressure on admission 225/94, heart rate in the 130s, 98% on 2 L of oxygen. At pressure this morning 100/58 with a heart rate in the 50s to 60s. White Blood cell count on admission 19.7, 14.3 this morning. Hemoglobin on admission 13, 10.5 this morning. Platelet count 249. Sodium 140, potassium 4.2 , chloride 110, BUN 23, creatinine 0.9. TSH and free T4 normal. Troponin 0.023 , 0.13, 0.19. Influenza A and B-. The time of my examination this morning, patient denies any chest discomfort or palpitations. Still feels mildly nauseated. 05/20/2017 Patient seen and examined this morning, continues to have nausea with episode of vomiting. Currently being followed by GI service. Blood pressure 150/80, heart rate in the 80s, 94% on room air. Potassium today 3.1, BUN 18, creatinine 1.1. 05/21/2017 Patient seen and examined this morning, no further episodes of nausea or vomiting. Cleared from GI perspective for discharge. Blood pressure 102/60 heart rate in the 70s, 95% on room air. Objective - Vital Signs Vital signs: Vital Signs Temp 97 F L 05/21/17 08:00 Pulse 72 05/21/17 08:00 Resp 18 05/21/17 08:00 BP 101/49 05/21/17 08:00 Pulse Ox 95 05/21/17 08:00 Intake & Output 05/20/17 05/21/17 05/21/17 18:59 06:59 18:59 Intake Total 660 240 Output Total 1200 Balance -540 240 Weight 94.8 kg Intake: Oral 660 240 Output: Urine 1200 Other: Voiding Method Toilet Toilet # Voids 1 1 # Bowel Movements 1 - Exam PHYSICAL EXAMINATION: HEENT: Head is atraumatic, normocephalic. Pupils equal, round. Neck is supple. There is no elevated jugular venous pressure. HEART EXAMINATION: Heart S1, S2 normal. No murmur or gallop heard. CHEST EXAMINATION: Lungs are clear to auscultation and precussion. No chest wall tenderness is noted on palpation or with deep breathing. ABDOMEN: Soft, nontender. Bowel sounds are heard. No organomegaly noted. EXTREMITIES: 2+ peripheral pulses with no evidence of peripheral edema and no calf tenderness noted. NEUROLOGIC patient is awake, alert and oriented -3. . - Labs CBC & Chem 7: 05/19/17 05:58 05/19/17 05:58 Assessment and Plan Plan: Assessment and plan #1 symptoms of persistent nausea and vomiting associated abdominal discomfort, possible acute gastritis, elevated white blood cell count #2 symptoms of chest pain or palpitations, and initial EKG on presentation here showed atrial fibrillation with a rapid ventricular response. Patient underwent a cardiac catheterization in March 2017 which did not reveal any obstructive coronary artery disease, suggestive possible spasm. #3 hypertensive urgency #4 paroxysmal atrial fibrillation, on Eliquis for anticoagulation #5 history of DVT #6 peripheral vascular disease #7 prior CVA #8 prior history of smoking PLan From cardiology's perspective, we'll continue current medications. She may be able to be discharged home once cleared by the primary. We will schedule her for follow-up visit in the office post discharge. At this point we will follow her along with you now on an as-needed basis only, please don't hesitate to call with any questions. DNP note has been reviewed, I agree with a documented findings and plan of care. Patient was seen and examined.
[2017-05-21 11:51] VITALS: BP 104/59; PULSE 59
--- NOTE | 2017-06-02 07:46 | DS ---
DISCHARGE SUMMARY DATE OF ADMISSION: 05/14/2017. DISCHARGE DATE: 05/21/2017. DISCHARGE DIAGNOSES: 1. Atrial fibrillation with RVR. 2. Intractable abdominal pain and vomiting. 3. Possible acute gastritis. 4. Possible non-ST elevation GA. 5. Hypomagnesemia. 6. Leukocytosis. 7. History of congestive heart failure. 8. Chronic obstructive pulmonary disease. 9. Cerebrovascular accident. 10.Hypertension. 11.Hyperlipidemia. BRIEF HISTORY: This patient is a 72-year-old female patient presented to the ED with a complaint of vomiting and abdominal discomfort. The patient also had some chest discomfort at that time. In the ER, patient was found to be in atrial fibrillation with RVR. She was admitted for further evaluation and treatment. PAST MEDICAL HISTORY: 1. Atrial fibrillation. 2. CAD/CHF. 3. COPD. 4. CVA/TIA. 5. DVT. 6. Hypertension. 7. Hyperlipidemia. MEDICATIONS: The patient is on Ultram 50 mg q.i.d. p.r.n., Senokot 1 tab b.i.d. p.r.n., Zofran 4 mg p.o. q.6 hours p.r.n., Xanax 0.25 mg q.8 hours p.r.n., Protonix 40 mg daily. Lopressor 50 mg b.i.d., Reglan 5 mg p.o. t.i.d., [place] 10 mg q.4 hours p.r.n., Antivert 25 mg daily, Zestril 5 mg daily, Lasix 40 mg daily, Lipitor 40 mg q.h.s., Eliquis 2.5 mg b.i.d., Catapres 0.1 mg t.i.d., Breo Ellipta 1 puff daily. PHYSICAL EXAMINATION: Patient is awake, alert and oriented. Vital signs: Temperature 97.9, pulse 99, respiration 20, blood pressure of 170/90, O2 saturation 96% on 2 L. HEENT atraumatic, normocephalic. Pupils equal and reactive to light. Extraocular movements intact. Buccal mucosa is fair. NECK: Supple. Lungs decreased breath sounds with scattered rhonchi and crackles. Heart irregularly irregular, tachycardic. ABDOMEN: Soft. Mild diffuse tenderness. Bowel sounds positive. EXTREMITIES: No edema, clubbing or cyanosis. LAB: CBC, white blood count of 19.3, hemoglobin 13. Sodium 144, potassium 4.4, chloride 1.5, alkaline positive 156. Troponin 0.135. EKG showed atrial fibrillation with RVR. Chest x-ray showed chronic changes. BRIEF HOSPITAL COURSE: The patient was admitted to the telemetry and was started on IV Cardizem drip. Cardiology consultation was done. The patient continued to have abdominal discomfort. She was started on clear liquid diet and was given Protonix. Ultrasound and x-ray of the abdomen was done which was unremarkable. Cardiology consultation was done and patient was gradually taken off of Cardizem and rate was controlled with the beta blockers. The patient continued to have abdominal pain and a CT of the abdomen was done which did not show any clear source of abdominal pain. Gastroenterology consultation was done for recommendation. Gastroenterology recommended a gastric emptying study to evaluate intractable nausea and vomiting. The patient's symptoms improved. Nausea got slightly better with decreasing pain medication. The patient's gastric emptying study could not be completed because of patient being on Reglan. It was recommended that the patient complete the study as an outpatient. She did not have any further complications. She remained stable. She was then discharged home in a stable condition. Patient was recommended to be discharged to skilled rehab. The patient refused, so she wanted to go home with the son. DISCHARGE MEDICATIONS: 1. Tambocor 50 mg q.12 hours. 2. Zestril 10 mg daily. 3. Reglan 10 mg p.o. q a.c. 4. Protonix 40 mg b.i.d. 5. Norvasc 5 mg daily. 6. Clonidine 0.3 mg patch weekly. 7. Xanax 0.25 mg every 8 hours. 8. Eliquis 2.5 mg b.i.d. 9. Lipitor 40 mg q.h.s. 10.Breo Ellipta 1 puff daily. 11.Lasix 40 mg daily. 12.[place] 10/325 1 tablet q.4 hours p.r.n. 13.Antivert 25 mg daily. 14.Lopressor 50 mg b.i.d. 15.Zofran ODT 4 mg every 8 hours p.r.n. 16.Senokot 1 tab b.i.d. 17.Tramadol 50 mg q.i.d. p.r.nKirsten DOHERTY / UMAIR: [id number] /
== END 2017-05-21 16:35 | disposition home health service (06) | DRG 392 ==
LOC: EC 11:40 → 6SEL 13:40 → UNDODISIN 05-17 14:47
PROVIDERS: ADMIT Internal Medicine; ATTEND Internal Medicine
DX: K31.84 Gastroparesis (principal); E11.51 Type 2 diabetes mellitus with diabetic peripheral angiopathy without gangrene; I48.0 Paroxysmal atrial fibrillation; J44.0 Chronic obstructive pulmonary disease with (acute) lower respiratory infection; I50.9 Heart failure, unspecified; E83.42 Hypomagnesemia; I11.0 Hypertensive heart disease with heart failure; J20.9 Acute bronchitis, unspecified; I25.10 Atherosclerotic heart disease of native coronary artery without angina pectoris; E78.5 Hyperlipidemia, unspecified; M19.90 Unspecified osteoarthritis, unspecified site; K21.0 Gastro-esophageal reflux disease with esophagitis; E87.6 Hypokalemia; E66.9 Obesity, unspecified; I16.0 Hypertensive urgency; K42.9 Umbilical hernia without obstruction or gangrene; Z90.89 Acquired absence of other organs; Z87.891 Personal history of nicotine dependence; Z90.49 Acquired absence of other specified parts of digestive tract; Z86.73 Personal history of transient ischemic attack (TIA), and cerebral infarction without residual deficits; Z87.19 Personal history of other diseases of the digestive system; Z86.718 Personal history of other venous thrombosis and embolism; Z85.72 Personal history of non-Hodgkin lymphomas; Z88.2 Allergy status to sulfonamides; Z79.899 Other long term (current) drug therapy; Z79.891 Long term (current) use of opiate analgesic; Z79.01 Long term (current) use of anticoagulants; Z98.41 Cataract extraction status, right eye; Z95.5 Presence of coronary angioplasty implant and graft
CPT/HCPCS: 36415; 71046; 74019; 74022; 74150; 76705; 80048; 80053; 80306; 81001; 82150; 82550; 82553; 83605; 83690; 83735; 83880; 84439; 84443; 84481; 84484; 85025; 85610; 85730; 87502; 93005; 94640; 94760; 96361; 96365; 96375; 99291

== ENCOUNTER → 2017-06-13 | Outpatient (CLI) | payer MEDICARE, BC ==
[2017-06-13 15:58] LABS: Anion Gap 12 mmol/L; Blood Urea Nitrogen 20 mg/dL (7-17); Carbon Dioxide 27 mmol/L (22-30); Chloride 101 mmol/L (98-107); Potassium 4.6 mmol/L (3.5-5.1); Sodium 140 mmol/L (137-145)
== END | disposition home or self-care (01) ==
LOC: LABWHC1 14:52
PROVIDERS: ATTEND Internal Medicine
DX: I11.0 Hypertensive heart disease with heart failure (principal); I50.9 Heart failure, unspecified; I48.0 Paroxysmal atrial fibrillation
CPT/HCPCS: 36415; 80051; 82565; 84520

== ENCOUNTER 2017-06-20 00:56 | Inpatient (IN) | payer MEDICARE, BC ==
--- NOTE | 2017-06-20 01:14 | ED ---
Chest Pain HPI - General Chief Complaint: Chest Pain Stated Complaint: chest pain Time Seen by Provider: 06/20/17 00:58 Source: EMS Mode of arrival: EMS Limitations: no limitations - History of Present Illness Initial Comments: This patient is a 72-year-old woman who presents to be evaluated for nausea and vomiting and then also states for chest pain. The patient states that the vomiting had started in the late afternoon, and that she has had multiple episodes of this. She states that initially there was no pain. She states that after having about 4 hours of the vomiting she started to have some burning substernal pain radiating upward from her epigastric area. She also was noting that she was feeling shaky and having palpitations. When she developed the symptoms she decided to be seen here. Patient has not had any blood or coffee ground material. MD Complaint: chest pain, other (Vomiting) -: hour(s) Onset: during rest Pain Location: substernal, epigastric Pain Radiation: none Severity: moderate Quality: aching, other (Burning) Consistency: constant Improves With: nothing Worsens With: nothing Anginal Symptoms: other (See above) Treatments Prior to Arrival: none - Related Data Home Medications Medication Instructions Recorded Confirmed Ondansetron Odt [Zofran ODT] 4 mg PO Q8H PRN 05/15/15 06/20/17 Meclizine [Antivert] 25 mg PO DAILY 12/20/16 06/20/17 Fluticasone/Vilanterol [Breo 1 puff INHALATION RT-DAILY 04/01/17 06/20/17 Ellipta 200-25 Mcg INH] Sennosides-Docusate Sodium 1 tab PO BID PRN 04/10/17 06/20/17 [Senokot-S] Apixaban [Eliquis] 2.5 mg PO BID 05/14/17 06/20/17 traMADol HCl [Ultram] 50 mg PO QID PRN 05/14/17 06/20/17 Previous Rx's Medication Instructions Recorded Furosemide [Lasix] 40 mg PO DAILY #30 tab 04/07/17 ALPRAZolam [Xanax] 0.25 mg PO Q8H PRN #20 tablet 04/15/17 Atorvastatin [Lipitor] 40 mg PO HS tab 04/15/17 HYDROcodone/APAP 10-325MG [[place] 1 tab PO Q4H PRN #60 tab 04/15/17 10-325] Metoprolol Tartrate [Lopressor] 50 mg PO BID #60 tab 04/15/17 Nitroglycerin Sl Tabs [Nitrostat] 0.4 mg SUBLINGUAL Q5M PRN #20 tab 04/15/17 Flecainide [Tambocor] 50 mg PO Q12HR #60 tab 05/21/17 Lisinopril [Zestril] 10 mg PO DAILY #30 tab 05/21/17 Metoclopramide HCl [Reglan] 10 mg PO AC-TID #90 tablet 05/21/17 Pantoprazole [Protonix] 40 mg PO BID #60 tablet. 05/21/17 amLODIPine [Norvasc] 5 mg PO BID #30 tab 05/21/17 Allergies Allergy/AdvReac Type Severity Reaction Status Date / Time Sulfa (Sulfonamide Allergy Anaphylaxis Verified 06/20/17 01:03 Antibiotics) Review of Systems ROS Statement: Those systems with pertinent positive or pertinent negative responses have been documented in the HPI. ROS Other: All systems not noted in ROS Statement are negative. Constitutional: Denies: fever, chills, weakness ENT: Denies: throat pain Respiratory: Denies: cough, dyspnea, wheezes Cardiovascular: Reports: chest pain, palpitations. Denies: orthopnea, edema, syncope Gastrointestinal: Reports: abdominal pain, nausea, vomiting. Denies: diarrhea, constipation, hematemesis, melena, hematochezia Genitourinary: Denies: dysuria, hematuria Musculoskeletal: Denies: back pain Skin: Denies: rash, lesions Neurological: Denies: headache, weakness, numbness Psychiatric: Reports: anxiety EKG Findings - EKG Results: EKG: interpreted by ERMD, normal axis, normal QRS EKG shows: atrial fibrillation (The underlying rhythm appears to be atrial flutter with variable AV conduction, the rate is approximately 126 bpm.) - Blocks, [place], Hypertrophy, ST Abn: Repolarization changes or abnormalities: ST or T wave suggestive of ischemia Past Medical History Past Medical History: Atrial Fibrillation, Heart Failure, COPD, CVA/TIA, Deep Vein Thrombosis (DVT), Hyperlipidemia, Hypertension, Osteoarthritis (OA) Additional Past Medical History / Comment(s): Nonobstructive coronary artery disease based on a cardiac catheterization was done in April 2015, apical ballooning suggestive of broken heart syndrome back in 2015, paroxysmal atrial fibrillation, 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 Peripheral vascular disease with a previous history of iliac artery stenting History of Any Multi-Drug Resistant Organisms: None Reported Past Surgical History: Cholecystectomy, Joint Replacement, Tonsillectomy Additional Past Surgical History / Comment(s): Small bowel resection for resection of a MALT tumor, cataract surgery in the right eye, tooth extraction, right hip ORIF, tonsillectomy, laparoscopic cholecystectomy, cardiac catheterization back in 2015, iliac artery stenting, EGD. Past Anesthesia/Blood Transfusion Reactions: No Reported Reaction Past Psychological History: No Psychological Hx Reported Smoking Status: Former smoker Past Alcohol Use History: None Reported Past Drug Use History: None Reported - Past Family History Mother Family Medical History: No Reported History Additional Family Medical History / Comment(s): . Father History Unknown: Yes General Exam Limitations: no limitations General appearance: alert, in no apparent distress, obese Head exam: Present: atraumatic, normocephalic Eye exam: Present: normal appearance. Absent: scleral icterus, conjunctival injection ENT exam: Present: mucous membranes dry Respiratory exam: Present: normal lung sounds bilaterally. Absent: respiratory distress, wheezes, rales, rhonchi, stridor Cardiovascular Exam: Present: tachycardia, irregular rhythm, normal heart sounds. Absent: systolic murmur, diastolic murmur, rubs, gallop GI/Abdominal exam: Present: soft, tenderness (There is mild epigastric tenderness without rebound or guarding), hernia (There is a periumbilical hernia without tenderness.). Absent: distended, guarding, rebound, rigid, mass , pulsatile mass Extremities exam: Present: normal inspection, normal capillary refill. Absent: pedal edema, calf tenderness Back exam: Present: normal inspection. Absent: CVA tenderness (R), CVA tenderness (L) Neurological exam: Present: alert Skin exam: Present: warm, dry, intact, normal color. Absent: rash Course Vital Signs 06/20/17 06/20/17 06/20/17 00:59 01:39 01:58 Temperature 97.2 F L Pulse Rate 135 H 76 106 H Pulse Rate [ Pulse Oximetery ] Respiratory 22 20 18 Rate Blood Pressure 120/62 131/59 149/75 Blood Pressure [Left Arm] O2 Sat by Pulse 96 96 96 Oximetry 06/20/17 06/20/17 06/20/17 02:28 02:44 02:58 Temperature Pulse Rate 113 H 112 H 113 H Pulse Rate [ Pulse Oximetery ] Respiratory 18 18 18 Rate Blood Pressure 164/72 159/70 144/66 Blood Pressure [Left Arm] O2 Sat by Pulse 97 98 98 Oximetry 06/20/17 06/20/17 03:53 04:35 Temperature 97.3 F L Pulse Rate 100 Pulse Rate [ 109 H Pulse Oximetery ] Respiratory 18 20 Rate Blood Pressure 135/60 Blood Pressure 164/75 [Left Arm] O2 Sat by Pulse 97 96 Oximetry Chest Pain MDM - [facility] Patient is 72-year-old woman in with multiple episodes of nausea and vomiting which were followed by the development of epigastric and substernal pains. The patient's EKG does show atrial fibrillation with variable conduction and a rapid rate. Patient started on Cardizem. Given the abdominal discomfort and the epigastric tenderness computed tomography scan of abdomen and pelvis performed without revealing any emergent or surgical condition. She is having some relief with treatment here will be admitted to have serial enzymes and telemetry monitoring as well as cardiology consultation. Disposition Clinical Impression: Atrial flutter with rapid ventricular response Disposition: ADMITTED IP TO THIS HOSP Condition: Fair
[2017-06-20] MEDS ORDERED: ONDANSETRON 4 MG/2 ML VIAL IVP STA (01:15)
[2017-06-20] MEDS ORDERED: DILTIAZEM 125 MG in SODIUM CHLORIDE 0.9% 100 ML IV ONE (01:15)
[2017-06-20] MEDS ORDERED: DILTIAZEM 5 MG/ML 5 ML VIAL IVP STA (01:15)
[2017-06-20] MEDS ORDERED: LORazepam 2 MG/ML INJ IV STA (01:25)
[2017-06-20 01:39] LABS: Basophils % (A) 0 %; Eosinophils # (A) 0.1 k/uL (0-0.7); Eosinophils % (A) 0 %; HCT 38.3 % (34.0-46.0); HGB 12.3 gm/dL (11.4-16.0); Lymphocytes % (A) 7 %; MCH 28.5 pg (25.0-35.0); Mean Platelet Volume 6.7; Monocytes # (A) 0.4 k/uL (0-1.0); Monocytes % (A) 3 %; Neutrophils % (A) 89 %; Platelet Count 398 k/uL (150-450); RDW 14.7 % (11.5-15.5); WBC 13.5 k/uL (3.8-10.6)
--- NOTE | 2017-06-20 01:45 | XR ---
EXAMINATION TYPE: XR chest 1V portable DATE OF EXAM: 06/20/2017 COMPARISON: 05/14/2017 HISTORY: Nausea and vomiting TECHNIQUE: Single frontal view of the chest is obtained. FINDINGS: There is no heart failure nor confluent pneumonic infiltrate. Costophrenic angles are eugene r. There are chest leads. IMPRESSION: No active cardiopulmonary disease. No change.
[2017-06-20 01:46] LABS: Albumin 4.2 g/dL (3.5-5.0); Calcium 9.8 mg/dL (8.4-10.2); Magnesium 1.4 mg/dL (1.6-2.3); Total Bilirubin 0.7 mg/dL (0.2-1.3); Total Protein 7.3 g/dL (6.3-8.2)
[2017-06-20 01:56] LABS: Potassium 3.5 mmol/L (3.5-5.1)
[2017-06-20] MEDS ORDERED: SODIUM CHLORIDE 0.9% 500 ML IV STA (02:50)
[2017-06-20] MEDS ORDERED: MORPHINE SULFATE 4 MG/ML SYRINGE IV STA (02:50)
--- NOTE | 2017-06-20 03:39 | CT ---
EXAMINATION TYPE: CT abdomen pelvis wo con DATE OF EXAM: 06/20/2017 COMPARISON: 05/16/2017 HISTORY: abd pain CT DLP: 1188.40 mGycm Automated exposure control for dose reduction was used. TECHNIQUE: Helical acquisition of images was performed from the lung bases through the pelvis. FINDINGS: There is some mild subsegmental atelectasis at the lung bases. There is no pleural effusion. Liver sh ows no focal defect. There are clips from cholecystectomy. Bile ducts are not dilated. Spleen appears normal. There is no pancreatic mass. There is no adrenal mass. Kidneys have normal size and contour. There is no hydronephrosis. Ureters are not dilated. There is small umbilical hernia contains fat. There is no retroperitoneal adenopathy. Abdominal aorta is atheromatous. There is metal artifact from right hip prosthesis. Bladder distends smoothly. There is no evidence of a pelvic mass. I see no int estinal wall thickening. There are no dilated loops. Appendix appears normal. There are mild spondylo tic changes in the lumbar spine. There is atherosclerotic vascular calcification. IMPRESSION: MILD SUBSEGMENTAL ATELECTASIS AND SCARRING AT THE LUNG BASES. THERE IS CLEARING OF THE PLEURAL EFFUSI ONS COMPARED TO OLD EXAM. ATHEROSCLEROTIC VASCULAR DISEASE. CARDIOMEGALY. VENTRAL HERNIA. NO ACUTE AB NORMALITY SEEN WITHIN THE ABDOMEN AND PELVIS.
[2017-06-20] MEDS ORDERED: MAGNESIUM SULFATE-D5W PMX 1 GM in DEXTROSE/WATER 1 100ML.BAG IVPB ONE ×2 (03:49→11:30)
[2017-06-20] MEDS ORDERED: NITROGLYCERIN SL TABS 0.4 MG TAB SUBLINGUAL PRN (04:21)
[2017-06-20] MEDS ORDERED: ONDANSETRON ODT 4 MG TAB PO PRN (04:23)
[2017-06-20] MEDS ORDERED: traMADol 50 MG TAB PO PRN (04:23)
[2017-06-20] MEDS ORDERED: SENNOSIDES-DOCUSATE SODIUM 1 EACH TAB PO PRN (04:23)
[2017-06-20 05:21] VITALS: BMI 40.6
[2017-06-20] MEDS: METOCLOPRAMIDE 10 MG TAB PO SCH ×3 (06:31→16:46)
[2017-06-20 06:54] LABS: Appearance,Urine Cloudy (Clear); Bacteria,Urine Rare /hpf; Bilirubin,Urine Negative (Negative); Blood,Urine Negative (Negative); Color,Urine Yellow; Glucose,Urine (UA) Trace (Negative); Hyaline Casts,Urine 3 /lpf (0-2); Ketones,Urine Negative (Negative); Leukocyte Esterase,Urine Trace (Negative); Mucus,Urine Rare /hpf; Nitrite,Urine Negative (Negative); PH, Urine 5.5 (5.0-8.0); Protein,Urine Trace (Negative); RBC,Urine <1 /hpf (0-5); Specific Gravity,Urine 1.015 (1.001-1.035); Squamous Epithelial Cell,Urine 9 /hpf (0-4); Urobilinogen,Urine <2.0 mg/dL (<2.0); WBC,Urine 5 /hpf (0-5)
[2017-06-20 08:20] LABS: Creatine Kinase MB 1.9 ng/mL (0.0-2.4)
[2017-06-20] MEDS: SYMBICORT 160-4.5 MCG INHALER INHALATION SCH ×2 (08:26→20:18)
[2017-06-20 08:34] LABS: Troponin I 0.035 ng/mL (0.000-0.034)
[2017-06-20] MEDS ORDERED: FLECAINIDE 50 MG TAB PO SCH (09:00)
[2017-06-20] MEDS: METOPROLOL TARTRATE 50 MG TAB PO SCH ×2 (09:23→20:59)
[2017-06-20] MEDS: HYDROcodone/APAP 10-325MG 1 EACH TAB PO PRN ×4 (09:23→20:58)
[2017-06-20] MEDS: PANTOPRAZOLE 40 MG TABLET PO SCH ×2 (09:23→20:59)
[2017-06-20] MEDS: APIXABAN 2.5 MG TABLET PO SCH ×2 (09:32→19:59)
[2017-06-20] MEDS: FUROSEMIDE 40 MG TAB PO SCH (09:33)
[2017-06-20] MEDS: LISINOPRIL 10 MG TAB PO SCH (09:33)
[2017-06-20] MEDS: amLODIPine 5 MG TAB PO SCH ×2 (09:33→20:00)
[2017-06-20] MEDS: FLECAINIDE 50 MG TAB PO SCH ×2 (09:43→20:00)
[2017-06-20] MEDS: SODIUM CHLORIDE 0.9% 1,000 ML IV SCH ×2 (09:55→21:00)
--- NOTE | 2017-06-20 11:13 | CONS ---
CONSULTATION This is a 72-year-old lady with a known history of hypertension, paroxysmal atrial fibrillation, hyperlipidemia. She also has episodes of nausea, vomiting from time to time and also some gastroesophageal reflux-type symptoms. She sees Dr. Patel in the outpatient setting. She is on anticoagulation in the form of Eliquis 2.5 mg b.i.d. She came into the hospital with complaints of nausea, vomiting, emesis, not feeling well, fatigued and exhausted. After she arrived in the emergency room, she was found to be in atrial fibrillation with a moderately rapid ventricular rate. She has been placed on a Cardizem drip, given IV fluids and antiemetics and she feels somewhat better at the time of my evaluation. She has no chest pain. She has no palpitations. She is now in sinus rhythm with sinus tachycardia and appears to be resting comfortably. PAST MEDICAL HISTORY: 1. Paroxysmal atrial fibrillation. 2. Hypertension. 3. Hyperlipidemia. 4. Osteoarthritis. 5. History of DVT in the past. Patient underwent a cardiac cath in April, which revealed no significant obstructive CAD. She also has a history of peripheral artery disease with previous intervention of her lower extremity arterial vascular system. She is status post cholecystectomy and tonsillectomy. MEDICATIONS: At home include Eliquis 2.5 mg b.i.d., Lasix 40 mg daily, Lipitor 40 mg daily, Lopressor 50 mg b.i.d., Zestril 10 mg daily, Reglan 10 mg daily, Norvasc 5 mg b.i.d., flecainide 50 mg b.i.d., and she also takes some inhalers Antivert and Zofran p.r.n. PHYSICAL EXAMINATION: Blood pressure is 140/70, pulse rate is about 100 per minute, regular sinus. HEENT: Unremarkable. Fundus was not examined by me. Neck is supple. There is no JVD. I do not hear a carotid bruit. Heart exam reveals S1, S2. There are no significant murmurs. Lungs reveal bilateral air entry. Abdomen is soft. There is mild epigastric tenderness. Patient is already on Protonix. Lower extremities reveal diminished pulses. No edema. Central nervous system is normal. LABORATORY DATA: Suggests that the troponins are equivocal at 0.01 and 0.03. Her magnesium level is low at 1.4 g. Potassium level is also low. These are being supplemented. IMPRESSION: 1. Atrial fibrillation with rapid ventricular rate. 2. Nausea, vomiting, emesis, which is resolving. 3. Hypertension. 4. Hyperlipidemia. RECOMMENDATIONS: I am recommending that we increase the flecainide to 75 mg b.i.d. and discontinue the diltiazem drip after that and also continue the beta michelle at 50 mg b.i.d. and this is a dose to be given as soon as possible. She is already being supplemented with magnesium and potassium. Also I am recommending IV fluids at 0.9, saline 75 mL/hour in view of her nausea and vomiting. She has not had any emesis this morning, but she is still has some nausea. Thank you very much for the consult. BESSY / UMAIR: [id number] /
[2017-06-20] MEDS ORDERED: Potassium Replacement Protocol 1 EACH MISC MISCELLANE PRN (11:17)
[2017-06-20] MEDS: POTASSIUM CHLORIDE ER 20 MEQ TAB.ER PO SCH ×2 (13:05→14:43)
[2017-06-20] MEDS: MECLIZINE 25 MG TAB PO SCH (13:07)
[2017-06-20 14:50] LABS: Troponin I 0.049 ng/mL (0.000-0.034)
[2017-06-20] MEDS ORDERED: cloNIDine 0.3 MG/24HR PATCH 1 PATCH PATCH TRANSDERM SCH (18:45)
--- NOTE | 2017-06-20 19:46 | HP ---
HISTORY AND PHYSICAL DATE OF SERVICE: 06/20/2017 CHIEF COMPLAINTS: Chest pain, nausea and vomiting. HISTORY OF PRESENT ILLNESS: This 72-year-old woman with a past medical history of multiple medical problems, including atrial ablation, COPD, CVA, DVT, history of DJD, is being followed by Dr. Mckeon in the outpatient setting. Yesterday she had some vague chest discomfort as well as nausea and vomiting in the late afternoon, and the patient had multiple episodes. After about 4 hours of vomiting, the patient came to [facility] and was admitted for further evaluation and treatment. The patient also was shaky and had some palpitations. The patient was found to have atrial fibrillation with a fast ventricular rate. Otherwise, lab evaluation showed WBC 13.5. The patient was admitted for further evaluation and treatment. The troponins would found to be 0.035 and 0.049. Cardiology evaluation is in progress. And abdomen and pelvis CT scan was also done in the emergency room which showed subsegmental atelectasis and scarring; otherwise clearing of the pleural effusion and no other acute abnormalities. Cardiology is evaluating the patient and is recommending an increase in the dose of flecainide and discontinuing the Cardizem drip. There is no history of any fever, rigor or chills; no history of headache, loss of consciousness, seizures. PAST MEDICAL HISTORY: 1. History of atrial fibrillation. 2. History of CHF. 3. COPD. 4. CVA, TIA. 5. DVT. 6. Hypertension. 7. Hyperlipidemia. 8. History of DJD. HOME MEDICATIONS: 1. Clonidine. 2. Catapres 0.3 weekly. 3. Zestril 5 mg p.o. daily. 4. Breo Ellipta 1 puff daily. 5. Zofran 8 mg daily p.r.n. 6. [place] 5 mg daily p.r.n. 7. Protonix 40 mg p.o. daily. 8. Lopressor 50 mg p.o. b.i.d. 9. Lipitor 40 mg at bedtime. 10.Eliquis 2.5 mg b.i.d. 11.Antivert 25 mg p.o. t.i.d. 12.Xanax 0.25 q.8 p.r.n. 13.Reglan 10 mg before meals t.i.d. 14.Lasix 40 mg p.o. b.i.d. 15.Norvasc 5 mg p.o. b.i.d. 16.Senokot-S 1 tablet p.o. b.i.d. p.r.n. 17.Nitrostat 0.4 mg sublingually p.r.n. 18.Tambocor 50 mg b.i.d. ALLERGIES: SULFA. FAMILY HISTORY: No history of heart disease or strokes family. SOCIAL HISTORY: Previous history of smoking. No current smoking or alcohol intake. REVIEW OF SYSTEMS: CARDIOVASCULAR SYSTEM: As mentioned earlier. RESPIRATORY SYSTEM: As mentioned earlier. GI: As mentioned earlier. : No dysuria or retention. NERVOUS SYSTEM: No numbness, weakness. ALLERGY/IMMUNOLOGY: No asthma, hayfever. MUSCULOSKELETAL: As mentioned earlier. HEMATOLOGY/ONCOLOGY: No history of anemia. ENDOCRINE: No history of diabetes, hypothyroidism. CONSTITUTIONAL: As mentioned earlier. DERMATOLOGY: Negative. RHEUMATOLOGY: Negative. PSYCHIATRY: As mentioned earlier. PHYSICAL EXAMINATION: Patient alert and oriented x3. Pulse is 113, blood pressure 164/72, respiration 18, temperature normal, pulse ox 97% on 2 L. HEENT: Conjunctivae normal. Oral mucosa moist. NECK: No jugular venous distention. No carotid bruit. No lymph node enlargement. CARDIOVASCULAR SYSTEM: S1, S2 irregular. Ejection systolic murmur present. No S3. No S4. RESPIRATORY SYSTEM: Breath sounds diminished at the bases. A few scattered rhonchi and crackles. ABDOMEN: Soft, non-tender. No mass palpable. No hepatosplenomegaly. LEGS: No edema. No swelling. NERVOUS SYSTEM: Higher functions as mentioned earlier. Moves all 4 limbs. No focal motor or sensory deficit. LYMPHATICS: No lymph node palpable in neck, axillae or groin. SKIN: No ulcer, rash, bleeding. JOINTS: No active deforming arthropathy. LABS: WBC 13.5, hemoglobin 12.3. Creatinine 1.1. Troponin 0.035. UA noted. ASSESSMENT: 1. Atrial fibrillation with fast ventricular rate. 2. Nausea, vomiting, abdominal discomfort; possible acute gastritis. 3. Troponin 0.049, possible acute non [id number] myocardial infarction. 4. Hypomagnesemia. 5. Increased creatinine with chronic kidney disease, stage III. 6. Increased white count. 7. History of atrial fibrillation. 8. History of congestive heart failure. 9. History of chronic obstructive pulmonary disease. 10.Cerebrovascular accident, transient ischemic attack. 11.History of deep venous thrombosis. 12.Hypertension. 13.Hyperlipidemia. 14.History of degenerative joint disease. 15.History of non-obstructive coronary artery disease per cardiac catheterization in April 2015. 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 17.MALT lymphoma of the small bowel surgically removed in 2014. 18.History of cholecystectomy. 19.Remote history of nicotine dependence. RECOMMENDATIONS AND DISCUSSION: This 72-year-old woman who presented with multiple complex medical issues., we will monitor the patient closely, continue the current medications, continue with symptomatic treatment. Otherwise at this time I recommend repeat labs. I would also recommend resuming the home medications. Home medication reconciliation was done. Otherwise symptomatic treatment for the gastritis. Monitor closely. Guarded prognosis because of multiple complex medical issues. We will continue to follow with Cardiology. Otherwise, I would continue the clonidine patch also to avoid any withdrawals. We will follow the patient closely. Further recommendations to follow. I discussed with the patient, who understands and agrees. MMODL / IJN: [id number] /
[2017-06-20] MEDS: ATORVASTATIN 40 MG TAB PO SCH (19:59)
[2017-06-20] MEDS: ALPRAZolam 0.25 MG TAB PO PRN (20:58)
[2017-06-21] MEDS: HYDROcodone/APAP 10-325MG 1 EACH TAB PO PRN ×5 (03:12→20:48)
[2017-06-21 06:04] LABS: Basophils % (A) 0 %; Eosinophils # (A) 0.1 k/uL (0-0.7); Eosinophils % (A) 1 %; HCT 30.7 % (34.0-46.0); Lymphocytes # (A) 1.1 k/uL (1.0-4.8); Lymphocytes % (A) 9 %; MCH 27.5 pg (25.0-35.0); MCHC 30.2 g/dL (31.0-37.0); MCV 91.1 fL (80.0-100.0); Mean Platelet Volume 6.9; Monocytes # (A) 0.8 k/uL (0-1.0); Monocytes % (A) 6 %; Neutrophils # (A) 10.6 k/uL (1.3-7.7); Neutrophils % (A) 83 %; Platelet Count 259 k/uL (150-450); RBC 3.37 m/uL (3.80-5.40); WBC 12.7 k/uL (3.8-10.6)
[2017-06-21 06:11] LABS: Anion Gap 9 mmol/L; Blood Urea Nitrogen 17 mg/dL (7-17); Calcium 8.3 mg/dL (8.4-10.2); Carbon Dioxide 24 mmol/L (22-30); Chloride 106 mmol/L (98-107); Cholesterol 124 mg/dL (<200); Glucose 108 mg/dL (74-99); HDL Cholesterol 58 mg/dL (40-60); LDL Cholesterol,Calculated 47 mg/dL (0-99); Potassium 4.1 mmol/L (3.5-5.1); Sodium 139 mmol/L (137-145); Triglycerides 97 mg/dL (<150)
[2017-06-21 06:23] LABS: HGB 9.3 gm/dL (11.4-16.0)
[2017-06-21] MEDS: METOCLOPRAMIDE 10 MG TAB PO SCH ×3 (06:34→17:38)
[2017-06-21] MEDS: amLODIPine 5 MG TAB PO SCH ×2 (07:40→20:45)
[2017-06-21] MEDS: APIXABAN 2.5 MG TABLET PO SCH ×2 (07:40→20:45)
[2017-06-21] MEDS: LISINOPRIL 10 MG TAB PO SCH (07:40)
[2017-06-21] MEDS: FLECAINIDE 50 MG TAB PO SCH ×2 (07:40→20:45)
[2017-06-21] MEDS: ASPIRIN 325 MG TAB PO SCH (07:40)
[2017-06-21] MEDS: FUROSEMIDE 40 MG TAB PO SCH (07:40)
[2017-06-21] MEDS: METOPROLOL TARTRATE 50 MG TAB PO SCH ×2 (07:41→20:46)
[2017-06-21] MEDS: PANTOPRAZOLE 40 MG TABLET PO SCH ×2 (07:41→20:45)
[2017-06-21] MEDS: SYMBICORT 160-4.5 MCG INHALER INHALATION SCH ×2 (08:20→19:51)
--- NOTE | 2017-06-21 12:26 | P.PN ---
Subjective Progress Note Date: 06/21/17 Principal diagnosis: Atrial fibrillation This 72-year-old female with history of hypertension, paroxysmal atrial fibrillation, hyperlipidemia, she presented to the hospital with symptoms of nausea and vomiting. Cardiology was asked to see the patient because of atrial fibrillation with a moderately rapid ventricular response. Medication adjustments were made yesterday, patient has since converted to normal sinus rhythm, heart rate in the 70s today. She was seen and examined this morning, no further episodes of vomiting, no diarrhea. Blood pressure 104/ 50 with a heart rate in the 60s, low-grade temperature of 99. Objective - Vital Signs Vital signs: Vital Signs Temp 99.0 F 06/21/17 11:45 Pulse 61 06/21/17 11:56 Resp 14 06/21/17 11:45 BP 104/52 06/21/17 11:45 Pulse Ox 93 L 06/21/17 11:45 Intake & Output 06/20/17 06/21/17 06/21/17 18:59 06:59 18:59 Intake Total 835 590 615 Output Total 800 Balance 835 -210 615 Weight 100.2 kg Intake: Intake, IV Titration 625 375 Amount Magnesium Sulfate-D5w Pmx 100 1 gm In Dextrose/Water 1 100ml.bag @ 100 mls/hr IVPB ONCE ONE Rx#: [id number] Sodium Chloride 0.9% 1, 525 375 000 ml @ 75 mls/hr IV . [id number] [facility] Rx#:[id number] Oral 210 590 240 Output: Urine 800 Other: Voiding Method Bedpan - Exam PHYSICAL EXAMINATION: HEENT: Head is atraumatic, normocephalic. Pupils equal, round. Neck is supple. There is no elevated jugular venous pressure. HEART EXAMINATION: Heart S1 and S2 with systolic murmur is heard CHEST EXAMINATION: Lungs are clear to auscultation and precussion. No chest wall tenderness is noted on palpation or with deep breathing. ABDOMEN: Soft, nontender. Bowel sounds are heard. No organomegaly noted. EXTREMITIES: 1+ peripheral pulses with no evidence of peripheral edema and no calf tenderness noted. NEUROLOGIC patient is awake, alert and oriented -3. . - Labs CBC & Chem 7: 06/21/17 05:21 06/21/17 05:21 Labs: Abnormal Lab Results - Last 24 Hours (Table) 06/20/17 06/20/1706/21/18 Range/Units 13:17 17:47 05:21 WBC (3.8-10.6) k/uL RBC (3.80-5.40) m/uL Hgb (11.4-16.0) gm/dL Hct (34.0-46.0) % MCHC (31.0-37.0) g/dL Neutrophils # (1.3-7.7) k/uL Glucose 108 H (74-99) mg/dL Calcium 8.3 L (8.4-10.2) mg/dL Troponin I 0.049 H* 0.038 H* (0.000-0.034) ng/mL 06/21/17 Range/Units 05:21 WBC 12.7 H (3.8-10.6) k/uL RBC 3.37 L (3.80-5.40) m/uL Hgb 9.3 L D (11.4-16.0) gm/dL Hct 30.7 L (34.0-46.0) % MCHC 30.2 L (31.0-37.0) g/dL Neutrophils # 10.6 H (1.3-7.7) k/uL Glucose (74-99) mg/dL Calcium (8.4-10.2) mg/dL Troponin I (0.000-0.034) ng/mL Assessment and Plan Plan: Assessment and plan #1 paroxysmal atrial fibrillation on Eliquis for anticoagulation #2 nausea vomiting, resolved #3 hypertension #4 hyperlipidemia Plan From cardiology's perspective, we'll continue the Eliquis 2-1/2 mg one tablet by mouth twice a day along with the flecainide and beta michelle. We'll discontinue the aspirin, patient has had a cardiac catheterization in 2016 which did not reveal any obstructive coronary artery disease. We will follow the patient with you now on an as-needed basis only, please don't hesitate to call with any questions. We will make her a follow-up appointment in the office with Dr. Patel post discharge. DNP note has been reviewed, I agree with a documented findings and plan of care. Patient was seen and examined.
[2017-06-21] MEDS: ATORVASTATIN 40 MG TAB PO SCH (20:45)
[2017-06-21 20:52] VITALS: RESP 16
[2017-06-21] MEDS ORDERED: cefTRIAXone IN SWFI 1,000 MG/10 ML SYRINGE IVP SCH (21:00)
--- NOTE | 2017-06-21 21:45 | PN ---
PROGRESS NOTE DATE OF SERVICE: 06/21/2017 This 72-year-old woman who was admitted with paroxysmal atrial fibrillation and also is improving significantly. No chest pain. No palpitations. No fever. PHYSICAL EXAM: Alert and oriented x3. The pulse is 68, blood pressure 109/50, respiration 14, temperature 98.2, pulse ox 95% on room air. HEENT: Conjunctivae normal. Oral mucosa moist. Neck is no jugular venous distention. No carotid bruit. No lymph node enlargement. Cardiovascular system: S1, S2 muffled. Respiratory: Breath sounds diminished in the bases. No rhonchi. No crackles. ABDOMEN: Soft, nontender. No mass palpable. Legs are no edema. No swelling. Central nervous system: No focal deficits. LABORATORY DATA: WBC 12.7. Troponin is noted. Lipid panel is negative. UA noted. ASSESSMENT: 1. Paroxysmal atrial fibrillation with fast ventricular rate. 2. Nausea, vomiting, abdominal discomfort, possible acute gastritis. 3. Troponin 0.04 indeterminate. 4. Hypomagnesemia. 5. Increased creatinine with chronic kidney disease stage 3. 6. Urinary tract infection. 7. Increased WBC. 8. History of atrial fibrillation. 9. History of congestive heart failure. 10.Chronic obstructive pulmonary disease. 11.Cerebrovascular accident, transient ischemic attack. 12.History of deep vein thrombosis. 13.Hypertension. 14.Hyperlipidemia. 15.History of degenerative joint disease. 16.History of nonobstructive coronary artery disease per cardiac cath in 2016. 17.Apical ballooning syndrome with Takotsubo cardiomyopathy monitor lymphoma small-bowel surgical removal. 18.History of cholecystectomy. 19.Remote history of nicotine dependence. RECOMMENDATIONS AND DISCUSSION: I recommend to continue current medication, continue symptomatic treatment. Otherwise at this time, continue to advance diet. I would also recommend a course of antibiotics too. Prognosis guarded because of the multiple medical issues and further recommendations to follow. See orders for details. MMODL / IJN: [id number] / MTDD
[2017-06-21] MEDS: ALPRAZolam 0.25 MG TAB PO PRN (21:58)
[2017-06-22] MEDS: HYDROcodone/APAP 10-325MG 1 EACH TAB PO PRN ×3 (02:42→11:53)
[2017-06-22 07:24] LABS: Basophils % (A) 0 %; Eosinophils # (A) 0.1 k/uL (0-0.7); Eosinophils % (A) 2 %; HGB 9.8 gm/dL (11.4-16.0); Lymphocytes # (A) 1.5 k/uL (1.0-4.8); Lymphocytes % (A) 21 %; MCH 28.7 pg (25.0-35.0); MCHC 31.7 g/dL (31.0-37.0); MCV 90.8 fL (80.0-100.0); Mean Platelet Volume 6.8; Monocytes # (A) 0.6 k/uL (0-1.0); Monocytes % (A) 8 %; Neutrophils # (A) 4.6 k/uL (1.3-7.7); Neutrophils % (A) 66 %; Platelet Count 247 k/uL (150-450); RBC 3.42 m/uL (3.80-5.40)
[2017-06-22 07:37] LABS: Anion Gap 6 mmol/L; Blood Urea Nitrogen 19 mg/dL (7-17); Calcium 8.4 mg/dL (8.4-10.2); Carbon Dioxide 29 mmol/L (22-30); Chloride 104 mmol/L (98-107); Glucose 93 mg/dL (74-99); Potassium 3.9 mmol/L (3.5-5.1); Sodium 139 mmol/L (137-145)
[2017-06-22] MEDS: PANTOPRAZOLE 40 MG TABLET PO SCH (07:38)
[2017-06-22] MEDS: MECLIZINE 25 MG TAB PO SCH (07:38)
[2017-06-22] MEDS: APIXABAN 2.5 MG TABLET PO SCH (07:38)
[2017-06-22] MEDS: METOCLOPRAMIDE 10 MG TAB PO SCH (07:39)
[2017-06-22] MEDS: FLECAINIDE 50 MG TAB PO SCH (07:39)
[2017-06-22] MEDS: SYMBICORT 160-4.5 MCG INHALER INHALATION SCH (07:49)
[2017-06-22 08:42] VITALS: BP 114/56; PULSE 58; TEMP 98
[2017-06-22] MEDS: amLODIPine 5 MG TAB PO SCH (10:14)
[2017-06-22] MEDS ORDERED: METOPROLOL TARTRATE 25 MG TAB PO SCH (10:30)
[2017-06-22] MEDS: METOPROLOL TARTRATE 50 MG TAB PO SCH (11:02)
--- NOTE | 2017-06-23 00:01 | DS ---
DISCHARGE SUMMARY DATE OF SERVICE: 06/22/2017. FINAL DIAGNOSES: 1. Paroxysmal atrial fibrillation with fast ventricular rate. 2. Nausea, vomiting, abdominal discomfort, possible acute gastritis, improved. 3. Troponin 0.04, indeterminate. 4. Hypomagnessemia. 5. Increased creatinine with chronic kidney disease stage 3. 6. Urinary tract infection. 7. Increased WBC. 8. History of atrial fibrillation. 9. History of congestive heart failure. 10.History of chronic obstructive pulmonary disease. 11.History of cerebrovascular accident, transient ischemic attack. 12.History of deep venous thrombosis. 13.Hypertension. 14.Hyperlipidemia. 15.History of degenerative joint disease. 16.History of nonobstructive coronary artery disease on cardiac catheterization in 2016. 17.Apical ballooning syndrome with Takotsubo cardiomyopathy. 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 19.History of cholecystectomy. 20.Remote history of nicotine dependence. DISCHARGE CONDITION: The patient will be discharged in stable condition with guarded prognosis. HISTORY OF PRESENT ILLNESS: This 72-year-old female with a past history of multiple medical problems was admitted with atrial fibrillation with fast ventricular response, paroxysmal atrial fibrillation, treated symptomatically. Cardiology saw the patient. Medications were adjusted. The patient improved significantly. On exam, vitals are stable. Cardiovascular normal, regular. Abdomen is soft, nontender. Nervous system, no focal deficits. DISCHARGE INSTRUCTIONS: 1. Cardiac diet. 2. Activity limited. 3. Followup with Dr. Mckeon in 1 to 2 days. 4. Follow up with Cardiology as advised. MEDICATIONS: 1. Xanax 0.5 every 8 hours p.r.n. 2. Norvasc 5 mg p.o. b.i.d. 3. Eliquis 2.5 mg p.o. b.i.d. 4. Lipitor 40 mg at bedtime. 5. Clonidine 0.3 patch. 6. Tambocor 75 mg p.o. b.i.d. 7. Breo Ellipta 1 puff daily. 8. Lasix 40 mg p.o. b.i.d. 9. [place] 5 mg daily p.r.n. 10.Zestril 5 mg b.i.d. 11.Antivert 25 mg p.o. t.i.d. 12.Reglan 10 mg with meals t.i.d. 13.Lopressor 25 mg p.o. b.i.d. 14.Nitrostat 0.4 sublingual p.r.n. 15.Zofran 8 mg p.o. daily. 16.Protonix 40 mg p.o. b.i.d. 17.senna 1 tablet bid p.r.n. Further followup in the outpatient setting. MMODL / IJN: [id number] / MTDD
--- NOTE | 2017-06-26 11:56 | CDI ---
Last Revision, March 2017 Documentation Clarification Form Date: 06/26/2017 11:32:00 AM From: Chantal Telles Phone: If you have a question regarding this query, please contact Mary Alaniz Batter Mixer at [phone] between 8am and 5pm Admit Date: 06/20/2017 4:21:00 AM Patient Name: Maureen Anand Visit Number: [id number] Discharge Date: ATTENTION: The Clinical Documentation Specialists (CDI) and [facility] Coding Staff appreciate your assistance in clarifying documentation. Please respond to the clarification below the line at the bottom and electronically sign. The CDI & [facility] Coding staff will review the response and follow-up if needed. Please note: Queries are made part of the Legal Health Record. If you have any questions, please contact the author of this message via ITS. Dr. Miguelina Yeh Patient has a history of congestive heart failure documented in the ED note, H&P , discharge summary, progress notes and in your consult note. History/Risk Factors:. Patient has a history of hypertension, CAD, atrial fib and a history of smoking. VS/Pulse OX: T. 97.2, P. 135, BP 120/62, R. 22 Pulse Ox 96 Home Meds: PO Lasix, PO Zestril, PO Lopressor In your professional opinion, can you please clarify the acuity of CHF if known? Systolic Heart Failure: Diastolic Heart Failure: Systolic & Diastolic Heart Failure: Unable to Determine Other, please specify_unable to determine MTDD
== END 2017-06-22 14:05 | disposition home health service (06) | DRG 309 ==
LOC: EC 00:56 → 6SEL 04:21 → 5MS5E 06-21 21:34
PROVIDERS: ADMIT Hospitalist; ATTEND Hospitalist
DX: I48.0 Paroxysmal atrial fibrillation (principal); I13.0 Hypertensive heart and chronic kidney disease with heart failure and stage 1 through stage 4 chronic kidney disease, or unspecified chronic kidney disease; N39.0 Urinary tract infection, site not specified; E83.42 Hypomagnesemia; J44.9 Chronic obstructive pulmonary disease, unspecified; I50.9 Heart failure, unspecified; E78.5 Hyperlipidemia, unspecified; I25.10 Atherosclerotic heart disease of native coronary artery without angina pectoris; I73.9 Peripheral vascular disease, unspecified; N18.3 Chronic kidney disease, stage 3 (moderate); M19.90 Unspecified osteoarthritis, unspecified site; K29.00 Acute gastritis without bleeding; R74.8 Abnormal levels of other serum enzymes; D72.829 Elevated white blood cell count, unspecified; E66.9 Obesity, unspecified; Z68.39 Body mass index [BMI] 39.0-39.9, adult; Z79.01 Long term (current) use of anticoagulants; Z79.899 Other long term (current) drug therapy; Z86.73 Personal history of transient ischemic attack (TIA), and cerebral infarction without residual deficits; Z86.718 Personal history of other venous thrombosis and embolism; Z87.891 Personal history of nicotine dependence; Z90.49 Acquired absence of other specified parts of digestive tract; Z96.60 Presence of unspecified orthopedic joint implant; Z85.72 Personal history of non-Hodgkin lymphomas
CPT/HCPCS: 36415; 71045; 74176; 80048; 80053; 80061; 81001; 82150; 82550; 82553; 83690; 83735; 84484; 85025; 93005; 94640; 96365; 96366; 96368; 96375; 96376; 99285

== ENCOUNTER → 2018-03-23 | Outpatient (CLI) | payer MEDICARE, BC ==
--- NOTE | 2018-03-25 08:05 | MM ---
Reason for exam: screening (asymptomatic). Last mammogram was performed 2 years and 7 months ago. History: Patient is postmenopausal and has history of other cancer at age 71. Physical Findings: A clinical breast exam by your physician is recommended on an annual basis and results should be correlated with mammographic findings. MG 3D Screening Mammo W/Cad Bilateral CC and MLO view(s) were taken. Prior study comparison: August 22, 2015, mammogram, performed at [facility]. March 24, 2014, mammogram, performed at [facility]. There are scattered fibroglandular densities. There is no discrete abnormality. No significant changes when compared with prior studies. ASSESSMENT: Negative, BI-RAD 1 RECOMMENDATION: Routine screening mammogram of both breasts in 1 year.
== END | disposition home or self-care (01) ==
LOC: RADMAMWWP 11:18
PROVIDERS: ATTEND Internal Medicine
DX: Z12.31 Encounter for screening mammogram for malignant neoplasm of breast (principal)
CPT/HCPCS: 77063; 77067

== ENCOUNTER → 2018-04-22 | Day surgery (SDC) | payer MEDICARE, BC ==
[~2018-04-22] MED LIST changes: -ACETAMINOPHEN TAB 500 MG TAB PO ONE; -DEXAMETHASONE SOD PHOSPHATE 10 MG/ML 1 ML VIAL IV ONE; +HYDROcodone/APAP 5-325MG 1 EACH TAB PO PRN; -LACTATED RINGERS 1,000 ML IV SCH; -MELOXICAM 7.5 MG TAB PO ONE; -MIDAZOLAM 2 MG/2 ML VIAL IV PRN; -ONDANSETRON 4 MG/2 ML VIAL IVP ONE; +ONDANSETRON 4 MG/2 ML VIAL IVP PRN; -TRANEXAMIC ACID 1,000 MG in SODIUM CHLORIDE 0.9% 100 ML IVPB ONE; -ceFAZolin IN SWFI 2 GM/20 ML SYRINGE IVP ONE
[2018-04-22 10:17] LABS: INR 0.9 (<1.2); Prothrombin Time 10.1 sec (9.0-12.0)
[2018-04-22 10:18] LABS: Mean Platelet Volume 6.2; Platelet Count 267 k/uL (150-450)
[2018-04-22 11:10] VITALS: RESP 18; TEMP 97.9
[2018-04-22] MEDS: HYDROmorphone 1 MG/ML 1 ML SYRINGE IVP PRN ×2 (11:10→11:51)
--- NOTE | 2018-04-22 12:11 | CT ---
EXAMINATION TYPE: CT biopsy lymph node DATE OF EXAM: 04/22/2018 HISTORY: Enlarging intra-abdominal mass. Request for tissue sampling. COMPARISON: 03/02/2018 PROCEDURE: The patient was monitored throughout the examination by interventional radiology nursing s moise. Informed consent was obtained and agree discussed with the patient prior to the procedure by my self, Dr. Hawley. Preprocedural timeout was performed. Maximal barrier technique was utilized. The skin overlying a suitable path to the lesion was localiz ed using CT and the overlying skin was prepped and draped. A total of 15 cc of 1% lidocaine used for local anesthesia. Using CT guidance, access was gained to the lesion with a 22-gauge needle. Aspirat ed specimen submitted to cytology. 5 passes were performed in all with passes submitted in formalin and saline to allow for flow cytometry. Following the procedure no immediate complications. Foci of air were introduced due to administration of lidocaine throughout the entirety of the examination coleen trally including intraperitoneally. The patient is discharged in stable condition. Hemostasis achie michelle. IMPRESSION: SUCCESSFUL CT GUIDED BIOPSY OF THE ENLARGING INTRA-ABDOMINAL MASS. PATHOLOGY PENDING. THIS PROCEDUR E WAS PERFORMED BY THE UNDERSIGNED.
[2018-04-22 13:56] VITALS: BP 153/64; PULSE 54
== END | disposition home or self-care (01) ==
LOC: RADPROMAIN 08:59
PROVIDERS: ATTEND Internal Medicine Hematology & Oncology
DX: C83.03 Small cell B-cell lymphoma, intra-abdominal lymph nodes (principal)
CPT/HCPCS: 36410; 76937; 88305; 85049; 85610; 88342; 88341; 96374; 36415; 77012; 38505; J1170

== ENCOUNTER → 2018-06-29 | Outpatient (CLI) | payer MEDICARE, BC ==
[2018-06-29 10:08] LABS: Blood Urea Nitrogen 11 mg/dL (7-17)
--- NOTE | 2018-06-29 12:23 | CT ---
EXAMINATION TYPE: CT abdomen pelvis w con DATE OF EXAM: 06/29/2018 COMPARISON: 03/02/2018 HISTORY: Lymphoma-observe for METs CT DLP: 2204.3 mGycm CONTRAST: CT scan of the abdomen and pelvis is performed with Oral Contrast and with IV Contrast, patient injec with 100 mL of Isovue 300. FINDINGS: LUNG BASES-: Left basilar atelectasis with small pleural effusion. LIVER/GB: Cholecystectomy clips in place. Mild fatty liver. No space occupying hepatic lesion. Adrian iary tree is of normal caliber. PANCREAS: No inflammation. No distinct mass. SPLEEN: No splenic enlargement. No lesion seen. ADRENALS: No nodule. No thickening. KIDNEYS/BLADDER: No hydronephrosis. No nephrolithiasis. No distinct renal mass. Urinary bladder g rossly unremarkable. BOWEL: Normal appendix. Normal bowel caliber. No inflammation. GENITAL ORGANS: No gross abnormality. LYMPH NODES: No greater than 1cm abdominal or pelvic lymph nodes are appreciated. AORTA: No significant abnormality. OSSEOUS STRUCTURES: Severe degenerative change lumbar spine. Right hip prosthesis noted. OTHER: Fat-containing ventral hernia redemonstrated. IMPRESSION: 1. Fat-containing ventral hernia. 2. No evidence for metastatic disease.
== END ==
LOC: RADPROMAIN 08:54
PROVIDERS: ATTEND Internal Medicine Hematology & Oncology
DX: C83.09 Small cell B-cell lymphoma, extranodal and solid organ sites (principal); K43.9 Ventral hernia without obstruction or gangrene; Z88.2 Allergy status to sulfonamides
CPT/HCPCS: 82565; 84520; 74177; J1642; Q9967

== ENCOUNTER 2018-08-08 15:44 | Inpatient (IN) | payer MEDICARE, BC ==
[2018-08-08] MEDS ORDERED: IPRATROPIUM-ALBUTEROL 3 ML NEB INHALATION STA (15:52)
[2018-08-08] MEDS ORDERED: MORPHINE SULFATE 4 MG/ML SYRINGE IVP STA (15:53)
--- NOTE | 2018-08-08 15:56 | ED ---
General Adult HPI - General Chief complaint: Shortness of Breath Stated complaint: SOB Time Seen by Provider: 08/08/18 15:48 Source: patient, RN notes reviewed Mode of arrival: EMS Limitations: no limitations - History of Present Illness Initial comments: 73-year-old female presenting with chief complaint of dyspnea, generalized weakness. Patient has history of COPD, congestive heart failure, atrial fibrillation. She is currently on Eliquis. She was recently admitted to outside hospital with congestive heart failure. Generalized weakness. She was discharged home, states she has not been feeling any better since time of discharge. She is currently undergoing treatment for CA. She follows with oncology. She reports previous tobacco use, not currently smoking. She also complains of abdominal pain which is chronic, unchanged from baseline. No vomiting, she's had some nausea. No fever or chills, no tissue area, no significant cough or URI symptoms - Related Data Home Medications Medication Instructions Recorded Confirmed Ondansetron Odt [Zofran ODT] 8 mg PO DAILY PRN 05/15/15 04/08/18 Meclizine [Antivert] 25 mg PO TID 12/20/16 04/08/18 Fluticasone/Vilanterol [Breo 1 puff INHALATION RT-DAILY 04/01/17 04/08/18 Ellipta 200-25 Mcg INH] Apixaban [Eliquis] 2.5 mg PO BID 05/14/17 04/08/18 Furosemide [Lasix] 40 mg PO DAILY 06/20/17 04/08/18 HYDROcodone/APAP 5-325MG [[place] 1 tab PO DAILY PRN 06/20/17 04/08/18 5-325] Lisinopril [Zestril] 5 mg PO DAILY 06/20/17 04/08/18 Pantoprazole Sodium [Protonix] 40 mg PO DAILY 06/20/17 04/08/18 Previous Rx's Medication Instructions Recorded ALPRAZolam [Xanax] 0.25 mg PO Q8H PRN #20 tablet 04/15/17 Atorvastatin [Lipitor] 40 mg PO HS tab 04/15/17 Metoclopramide HCl [Reglan] 10 mg PO AC-TID #90 tablet 05/21/17 Flecainide [Tambocor] 75 mg PO Q12HR #60 tab 06/22/17 Metoprolol Tartrate [Lopressor] 25 mg PO BID #60 tab 06/22/17 Allergies Allergy/AdvReac Type Severity Reaction Status Date / Time Sulfa (Sulfonamide Allergy Anaphylaxis Verified 08/08/18 15:51 Antibiotics) Review of Systems ROS Statement: Those systems with pertinent positive or pertinent negative responses have been documented in the HPI. ROS Other: All systems not noted in ROS Statement are negative. 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 Peripheral vascular disease with a previous history of iliac artery stenting History of Any Multi-Drug Resistant Organisms: None Reported Past Surgical History: Cholecystectomy, Joint Replacement, Tonsillectomy Additional Past Surgical History / Comment(s): Small bowel resection for resection of a MALT tumor, cataract surgery in the right eye, tooth extraction, right hip ORIF, tonsillectomy, laparoscopic cholecystectomy, cardiac catheterization back in 2015, iliac artery stenting, EGD. Past Anesthesia/Blood Transfusion Reactions: No Reported Reaction Past Psychological History: No Psychological Hx Reported Smoking Status: Former smoker Past Alcohol Use History: None Reported Past Drug Use History: None Reported - Past Family History Mother Family Medical History: No Reported History Additional Family Medical History / Comment(s): . Father History Unknown: Yes Family Medical History: Diabetes Mellitus General Exam Limitations: no limitations General appearance: alert, in no apparent distress Head exam: Present: atraumatic, normocephalic Eye exam: Present: normal appearance, PERRL ENT exam: Present: normal exam Neck exam: Present: normal inspection. Absent: tenderness, meningismus Respiratory exam: Present: normal lung sounds bilaterally. Absent: respiratory distress, wheezes Cardiovascular Exam: Present: regular rate, normal rhythm GI/Abdominal exam: Present: soft, tenderness (Mild generalized tenderness). Absent: distended Extremities exam: Present: normal inspection, normal capillary refill. Absent: pedal edema, calf tenderness Neurological exam: Present: alert, oriented X3, CN II-XII intact. Absent: motor sensory deficit Psychiatric exam: Present: normal affect, normal mood Skin exam: Present: warm, dry, intact. Absent: cyanosis, diaphoretic Course Vital Signs 08/08/18 08/08/18 08/08/18 15:51 16:04 16:18 Temperature 98 F Pulse Rate 70 72 68 Respiratory 16 Rate Blood Pressure 118/63 O2 Sat by Pulse 99 Oximetry EKG Findings - EKG Comments: EKG Findings:: EKG: Sinus rhythm, with PAC, prolonged QT, rate of 72, DE in terval 170, QRS duration 78, QTC 450, no ST segment elevation T waves are upright. Medical Decision Making - Medical Decision Making 73-year-old female presenting with dyspnea, generalized pain complaints. No central radiating chest pain. She does have history of both COPD and congestive heart failure. EKG is sinus rhythm with PAC, no ST segment changes. Chest x- ray negative for marshal pulmonary edema. Laboratory studies reveal pancytopenia with white count 1.4 with 900 neutrophils, hemoglobin 11.3, platelets of low at 17. BNP is elevated at 8480, troponin is elevated 0.15. Patient is already anticoagulated, given the thrombocytopenia, will treat heart failure, suspect troponin elevation is secondary to heart failure rather than acute IA. Will hold heparin as patient is previously anticoagulated and has platelets of 17. Urinalysis pending Will admit for diuresis, pain control, cardiology consultation, serial enzymes, oncology consultation. Case discussed with admitting physician Dr. Riggs - Lab Data Result diagrams: 08/08/18 16:15 08/08/18 16:15 Lab Results 08/08/18 08/08/18 08/08/18 Range/Units 16:15 16:15 16:15 WBC 1.4 L* (3.8-10.6) k/uL RBC 3.56 L (3.80-5.40) m/uL Hgb 11.3 L (11.4-16.0) gm/dL Hct 33.6 L (34.0-46.0) % MCV 94.4 (80.0-100.0) fL MCH 31.8 (25.0-35.0) pg MCHC 33.7 (31.0-37.0) g/dL RDW 16.4 H (11.5-15.5) % Plt Count 17 L* (150-450) k/uL Neutrophils % 67 % Lymphocytes % 24 % Monocytes % 5 % Eosinophils % 2 % Basophils % 0 % Neutrophils # 0.9 L (1.3-7.7) k/uL Lymphocytes # 0.3 L (1.0-4.8) k/uL Monocytes # 0.1 (0-1.0) k/uL Eosinophils # 0.0 (0-0.7) k/uL Basophils # 0.0 (0-0.2) k/uL Anisocytosis Slight PT (9.0-12.0) sec INR (<1.2) APTT (22.0-30.0) sec Sodium 136 L (137-145) mmol/L Potassium 3.5 (3.5-5.1) mmol/L Chloride 97 L (98-107) mmol/L Carbon Dioxide 33 H (22-30) mmol/L Anion Gap 6 mmol/L BUN 19 H (7-17) mg/dL Creatinine 0.76 (0.52-1.04) mg/dL Est GFR (CKD-EPI)AfAm >90 (>60 ml/min/1.73 sqM) Est GFR (CKD-EPI)NonAf 79 (>60 ml/min/1.73 sqM) Glucose 167 H (74-99) mg/dL Calcium 8.5 (8.4-10.2) mg/dL Magnesium 1.7 (1.6-2.3) mg/dL Total Bilirubin 1.3 (0.2-1.3) mg/dL AST 60 H (14-36) U/L ALT 59 H (9-52) U/L Alkaline Phosphatase 123 (38-126) U/L Troponin I (0.000-0.034) ng/mL NT-Pro-B Natriuret Pep 8480 pg/mL Total Protein 5.3 L (6.3-8.2) g/dL Albumin 2.9 L (3.5-5.0) g/dL 08/08/18 08/08/18 Range/Units 16:15 16:15 WBC (3.8-10.6) k/uL RBC (3.80-5.40) m/uL Hgb (11.4-16.0) gm/dL Hct (34.0-46.0) % MCV (80.0-100.0) fL MCH (25.0-35.0) pg MCHC (31.0-37.0) g/dL RDW (11.5-15.5) % Plt Count (150-450) k/uL Neutrophils % % Lymphocytes % % Monocytes % % Eosinophils % % Basophils % % Neutrophils # (1.3-7.7) k/uL Lymphocytes # (1.0-4.8) k/uL Monocytes # (0-1.0) k/uL Eosinophils # (0-0.7) k/uL Basophils # (0-0.2) k/uL Anisocytosis PT 10.8 (9.0-12.0) sec INR 1.0 (<1.2) APTT 25.2 (22.0-30.0) sec Sodium (137-145) mmol/L Potassium (3.5-5.1) mmol/L Chloride (98-107) mmol/L Carbon Dioxide (22-30) mmol/L Anion Gap mmol/L BUN (7-17) mg/dL Creatinine (0.52-1.04) mg/dL Est GFR (CKD-EPI)AfAm (>60 ml/min/1.73 sqM) Est GFR (CKD-EPI)NonAf (>60 ml/min/1.73 sqM) Glucose (74-99) mg/dL Calcium (8.4-10.2) mg/dL Magnesium (1.6-2.3) mg/dL Total Bilirubin (0.2-1.3) mg/dL AST (14-36) U/L ALT (9-52) U/L Alkaline Phosphatase (38-126) U/L Troponin I 0.154 H* (0.000-0.034) ng/mL NT-Pro-B Natriuret Pep pg/mL Total Protein (6.3-8.2) g/dL Albumin (3.5-5.0) g/dL Disposition Clinical Impression: Pancytopenia, Heart failure, Elevated troponin Disposition: ADMITTED IP TO THIS HOSP Condition: Stable Is patient prescribed a controlled substance at d/c from ED?: No Referrals: Paige Mckeon MD [Primary Care Provider] - 1-2 days Decision to Admit Reason: Admit from EC Decision Date: 08/08/18 Decision Time: 17:07
[2018-08-08 16:27] LABS: Anisocytosis Slight; Basophils % (A) 0 %; Eosinophils % (A) 2 %; HCT 33.6 % (34.0-46.0); HGB 11.3 gm/dL (11.4-16.0); Lymphocytes # (A) 0.3 k/uL (1.0-4.8); Lymphocytes % (A) 24 %; MCH 31.8 pg (25.0-35.0); MCHC 33.7 g/dL (31.0-37.0); MCV 94.4 fL (80.0-100.0); Mean Platelet Volume 9.9; Monocytes # (A) 0.1 k/uL (0-1.0); Monocytes % (A) 5 %; Neutrophils # (A) 0.9 k/uL (1.3-7.7); Neutrophils % (A) 67 %; RBC 3.56 m/uL (3.80-5.40); RDW 16.4 % (11.5-15.5)
[2018-08-08 16:36] LABS: Partial Thromboplastin Time 25.2 sec (22.0-30.0); Platelet Count 17 k/uL (150-450); Prothrombin Time 10.8 sec (9.0-12.0); WBC 1.4 k/uL (3.8-10.6)
--- NOTE | 2018-08-08 16:39 | XR ---
EXAMINATION TYPE: XR chest 2V DATE OF EXAM: 08/08/2018 COMPARISON: 06/20/2017 HISTORY: 73-year-old female difficulty breathing, shortness of breath TECHNIQUE: AP and lateral views FINDINGS: Right anterior chest wall injection port. Catheter tip at the mid to lower SVC. Heart upper limits of normal in size. Mild interstitial prominence is unchanged. No consolidation or pleural effusion seen . IMPRESSION: Chronic changes without acute cardiopulmonary process.
--- NOTE | 2018-08-08 16:40 | XR ---
EXAMINATION TYPE: XR KUB DATE OF EXAM: 08/08/2018 COMPARISON: NONE HISTORY: 73-year-old female with pain TECHNIQUE: FINDINGS: Partially visualized right hip total arthroplasty. Mild degenerative changes of the left hip. Supine imaging limited for assessment of free air. No dilated small bowel. Scattered colonic air is present. No suspicious calcifications identified. IMPRESSION: Nonspecific, nonobstructive bowel gas pattern. No significant stool burden.
[2018-08-08 16:42] LABS: ALT 59 U/L (9-52); AST 60 U/L (14-36); Albumin 2.9 g/dL (3.5-5.0); Alkaline Phosphatase 123 U/L (38-126); Anion Gap 6 mmol/L; Blood Urea Nitrogen 19 mg/dL (7-17); Calcium 8.5 mg/dL (8.4-10.2); Carbon Dioxide 33 mmol/L (22-30); Chloride 97 mmol/L (98-107); Glucose 167 mg/dL (74-99); Magnesium 1.7 mg/dL (1.6-2.3); Potassium 3.5 mmol/L (3.5-5.1); Sodium 136 mmol/L (137-145); Total Bilirubin 1.3 mg/dL (0.2-1.3); Total Protein 5.3 g/dL (6.3-8.2)
[2018-08-08] MEDS ORDERED: FUROSEMIDE 10 MG/ML 4 ML VIAL IV STA (17:00)
[2018-08-08] MEDS ORDERED: ASPIRIN 325 MG TAB PO STA (17:00)
[2018-08-08] MEDS ORDERED: HYDROmorphone 1 MG/ML 1 ML SYRINGE IVP PRN (17:07)
[2018-08-08] MEDS ORDERED: NALOXONE 0.4 MG/ML 1 ML VIAL IV PRN (17:07)
[2018-08-08] MEDS ORDERED: HYDROmorphone 0.5 MG/0.5 ML SYRINGE IVP PRN (17:07)
[2018-08-08] MEDS ORDERED: ACETAMINOPHEN TAB 325 MG TAB PO PRN (17:07)
[2018-08-08 17:57] LABS: Appearance,Urine Clear (Clear); Bilirubin,Urine Negative (Negative); Blood,Urine Negative (Negative); Color,Urine Yellow; Glucose,Urine (UA) Negative (Negative); Ketones,Urine Negative (Negative); Leukocyte Esterase,Urine Negative (Negative); Nitrite,Urine Negative (Negative); PH, Urine 6.5 (5.0-8.0); Protein,Urine Trace (Negative); Specific Gravity,Urine 1.014 (1.001-1.035); Urobilinogen,Urine <2.0 mg/dL (<2.0)
[2018-08-08] MEDS: IPRATROPIUM-ALBUTEROL 3 ML NEB INHALATION SCH (20:10)
[2018-08-08] MEDS: ATORVASTATIN 40 MG TAB PO SCH (22:00)
[2018-08-08] MEDS: DOXYCYCLINE 100 MG CAP PO SCH (22:00)
[2018-08-08] MEDS: METOPROLOL TARTRATE 50 MG TAB PO SCH (22:01)
[2018-08-08] MEDS: FUROSEMIDE 10 MG/ML 4 ML VIAL IV SCH (22:01)
[2018-08-08] MEDS: HYDROcodone/APAP 7.5-325MG 1 EACH TAB PO PRN (22:01)
[2018-08-08] MEDS: ALPRAZolam 0.25 MG TAB PO PRN (22:57)
[2018-08-09] MEDS: IPRATROPIUM-ALBUTEROL 3 ML NEB INHALATION SCH ×4 (02:09→19:38)
[2018-08-09 05:01] LABS: Anion Gap 5 mmol/L; Blood Urea Nitrogen 26 mg/dL (7-17); Calcium 7.1 mg/dL (8.4-10.2); Carbon Dioxide 29 mmol/L (22-30); Chloride 105 mmol/L (98-107); Glucose 110 mg/dL (74-99); Potassium 3.1 mmol/L (3.5-5.1); Sodium 139 mmol/L (137-145)
[2018-08-09 05:14] LABS: Anisocytosis Slight; Basophils % (A) 0 %; Eosinophils % (A) 0 %; HCT 27.6 % (34.0-46.0); Lymphocytes # (A) 0.4 k/uL (1.0-4.8); Lymphocytes % (A) 22 %; MCH 31.7 pg (25.0-35.0); MCHC 33.8 g/dL (31.0-37.0); MCV 93.8 fL (80.0-100.0); Mean Platelet Volume 10.7; Monocytes # (A) 0.1 k/uL (0-1.0); Monocytes % (A) 7 %; Neutrophils # (A) 1.2 k/uL (1.3-7.7); Neutrophils % (A) 68 %; RBC 2.94 m/uL (3.80-5.40); RDW 17.2 % (11.5-15.5); WBC 1.7 k/uL (3.8-10.6)
[2018-08-09 05:43] LABS: HGB 9.3 gm/dL (11.4-16.0); Platelet Count 15 k/uL (150-450)
[2018-08-09] MEDS: METOCLOPRAMIDE 5 MG TAB PO SCH ×3 (06:40→15:16)
[2018-08-09] MEDS: PANTOPRAZOLE 40 MG TABLET PO SCH (06:40)
[2018-08-09] MEDS: HYDROcodone/APAP 7.5-325MG 1 EACH TAB PO PRN ×3 (06:42→21:18)
[2018-08-09] MEDS: SYMBICORT 160-4.5 MCG INHALER INHALATION SCH ×2 (08:31→19:38)
[2018-08-09] MEDS ORDERED: Potassium Replacement Protocol 1 EACH MISC MISCELLANE PRN (09:06)
[2018-08-09] MEDS: predniSONE 10 MG TAB PO SCH (09:42)
[2018-08-09] MEDS: DOXYCYCLINE 100 MG CAP PO SCH ×2 (09:42→21:18)
[2018-08-09] MEDS: POTASSIUM CHLORIDE ER 20 MEQ TAB.ER PO SCH ×2 (09:43→11:23)
[2018-08-09] MEDS: FUROSEMIDE 10 MG/ML 4 ML VIAL IV SCH ×2 (09:43→21:19)
[2018-08-09] MEDS: METOPROLOL TARTRATE 50 MG TAB PO SCH ×2 (09:43→21:18)
[2018-08-09] MEDS: MECLIZINE 25 MG TAB PO SCH (09:43)
[2018-08-09 11:44] VITALS: BMI 36.5
--- NOTE | 2018-08-09 13:08 | CONS ---
CONSULTATION HISTORY: Maureen is a 73-year-old lady with history of congestive heart failure, paroxysmal atrial fibrillation, carcinoma for which she is currently on chemotherapy, who has MALT lymphoma of the small bowel, who apparently has recently been discharged home from [facility] following an admission with congestive heart failure. Complains of shortness of breath and comes in. On her presentation she had elevated BNP and is admitted to hospital. She is feeling better since being admitted. She was discharged home from the hospital on and she is back here on Friday. She had a prior apical ballooning syndrome, had a cardiac catheterization in April of 2015 that revealed mild nonobstructive disease. Has paroxysmal atrial fibrillation, hypertension and dyslipidemia. PAST SURGICAL HISTORY: Significant for small bowel resection for MALT lymphoma, cholecystectomy, tonsillectomy, joint replacement. ALLERGIES: SULFA. MEDICATIONS: At home included: 1. Xanax. 2. Lipitor. 3. Flecainide. 4. Lopressor. 5. Zestril. 6. Protonix. 7. Zofran. 8. Antivert. 9. Eliquis. 10.Lasix. FAMILY HISTORY: Negative for premature coronary artery disease. SOCIAL HISTORY: Negative for current smoking, EtOH abuse, or drug abuse. REVIEW OF SYSTEMS: HEENT is unremarkable. Cardiac as described above. Respiratory as described above. GI negative. Genitourinary negative. Allergy/immunology negative. Skin negative. Musculoskeletal negative. Endocrine negative. Constitutional negative. Oncological as described above. Rest of the system review is not relevant. EXAM: Patient is comfortable at rest. Afebrile. Heart rate is 70 beats per minute. Blood pressure is 96/47, respiratory rate 18. Chest exam reveals good air entry bilaterally. Heart exam reveals first and second heart sounds. No gallop. Has a systolic murmur at the left lower sternal border. Abdomen is soft. Exam of the extremities did not reveal any edema. Peripheral pulses are felt. LABS: Show a hemoglobin of 9.3, white cell count is 1.7, platelet count is 15. Potassium is low at 3.1, creatinine is 0.76. Troponins were slightly elevated at 0.1, 0.1 and 0.6. BNP is elevated at 8480. Chest x-ray does not reveal pulmonary congestion. ASSESSMENT: 1. Acute exacerbation of chronic congestive heart failure. We are not quite sure whether it is systolic or diastolic. Should obtain records from the other institution. Elevated troponin is of no significance in this patient with cancer. 2. Pancytopenia, probably related to recent chemotherapy. Stop the Eliquis. 3. Hypokalemia. Supplement the potassium. PLAN: The patient is currently on IV Lasix which I am going to continue. She is on Lopressor which will be continued along with potassium supplement. She does not require any invasive testing for the elevated troponins at this time. MMODL / IJN: [id number] /
--- NOTE | 2018-08-09 15:17 | P.HPIM ---
History of Present Illness H&P Date: 08/09/18 73-year-old female presenting with chief complaint of dyspnea, generalized weakness. Patient has history of COPD, congestive heart failure, atrial fibrillation. She is currently on Eliquis. She was recently admitted to outside hospital with congestive heart failure. Generalized weakness. She was discharged home, states she has not been feeling any better since time of discharge. She is currently undergoing treatment for CA. She follows with oncology. She reports previous tobacco use, not currently smoking. She also complains of abdominal pain which is chronic, unchanged from baseline. No vomiting, she's had some nausea. No fever or chills, no tissue area, no significant cough or URI symptoms workup in ED showed an EKG with sinus rhythm with PACs; chest x-ray was negative for marshal pulmonary edema; labs are significant for pancytopenia with WBC of 1.4, hemoglobin 11.3 and platelet count of 17; troponin is elevated at 8480; troponin is elevated at 0.15; patient was not started on IV heparin due to previous anticoagulation and low platelet count Patient is admitted for further treatment of CHF and cardiology evaluation Review of Systems Constitutional: Denies chills, Denies fever Eyes: denies blurred vision, denies loss of vision Ears, nose, mouth and throat: Denies epistaxis Cardiovascular: Reports chest pain, Reports shortness of breath Respiratory: Denies cough with sputum Gastrointestinal: Denies abdominal pain, Denies nausea, Denies vomiting Past Medical History Past Medical History: Atrial Fibrillation, Heart Failure, COPD, CVA/TIA, Deep Vein Thrombosis (DVT), Hyperlipidemia, Hypertension, Myocardial Infarction (CO), Osteoarthritis (OA) Additional Past Medical History / Comment(s): Nonobstructive coronary artery disease based on a cardiac catheterization was done in April 2015, apical ballooning suggestive of broken heart syndrome back in 2015, paroxysmal atrial fibrillation, MALT lymphoma of the small bowel surgically resected back in 2014, DVT history of,, recent fall and fracture of the right hip status post ORIF, C OPD, degenerative arthritis, hypertension, hyperlipidemia, CVA history of without any residual deficits. Peripheral vascular disease with a previous history of iliac artery stenting Last Myocardial Infarction Date:: 2015 History of Any Multi-Drug Resistant Organisms: None Reported Past Surgical History: Cholecystectomy, Joint Replacement, Tonsillectomy Additional Past Surgical History / Comment(s): Small bowel resection for resection of a MALT tumor, cataract surgery in the right eye, tooth extraction, right hip ORIF, tonsillectomy, laparoscopic cholecystectomy, cardiac catheterization back in 2016, iliac artery stenting, EGD. Past Anesthesia/Blood Transfusion Reactions: No Reported Reaction Past Psychological History: No Psychological Hx Reported Additional Psychological History / Comment(s): PT STATED SHE LIVES WITH HER SON, USES A WALKER WHEN UP. RECEIVES" [facility]" Smoking Status: Former smoker Past Alcohol Use History: None Reported Additional Past Alcohol Use History / Comment(s): quit 2011 Past Drug Use History: None Reported - Past Family History Mother Family Medical History: No Reported History Additional Family Medical History / Comment(s): . Father History Unknown: Yes Family Medical History: Diabetes Mellitus Medications and Allergies Home Medications Medication Instructions Recorded Confirmed Type Meclizine [Antivert] 25 mg PO DAILY 12/20/16 08/08/18 History Fluticasone/Vilanterol [Breo 1 puff INHALATION RT-DAILY 04/01/17 08/08/18 History Ellipta 200-25 Mcg INH] ALPRAZolam [Xanax] 0.25 mg PO Q8H PRN #20 tablet 04/15/17 08/08/18 Rx Atorvastatin [Lipitor] 40 mg PO HS tab 04/15/17 08/08/18 Rx Apixaban [Eliquis] 2.5 mg PO BID 05/14/17 08/08/18 History Pantoprazole Sodium [Protonix] 40 mg PO DAILY 06/20/17 08/08/18 History Alendronate Sodium [Fosamax] 70 mg PO FR 08/08/18 08/08/18 History Doxycycline Monohydrate [Monodox] 100 mg PO BID 08/08/18 08/08/18 History Hydrocodone/Acetaminophen [[place] 1 tab PO Q6HR PRN 08/08/18 08/08/18 History 7.5-325] Ipratropium-Albuterol Nebulize 3 ml INHALATION RT-Q6H 08/08/18 08/08/18 History [Duoneb 0.5 mg-3 mg/3 ml Soln] Metoclopramide HCl [Reglan] 5 mg PO AC-TID 08/08/18 08/08/18 History Metoprolol Tartrate [Lopressor] 50 mg PO BID 08/08/18 08/08/18 History predniSONE See Taper PO DIRECTED 08/08/18 08/08/18 History Allergies Allergy/AdvReac Type Severity Reaction Status Date / Time Sulfa (Sulfonamide Allergy Anaphylaxis Verified 08/08/18 17:06 Antibiotics) Physical Exam Vitals: Vital Signs Temp Pulse Pulse Resp BP BP Pulse Ox 08/09/18 11:27 66 20 134/71 08/09/18 08:46 72 08/09/18 08:31 72 08/09/18 08:00 97.5 F L 73 20 142/81 97 08/09/18 04:00 97.4 F L 67 22 96/47 96 08/09/18 02:21 69 08/09/18 02:09 64 08/09/18 00:00 69 20 104/66 97 08/08/18 20:21 58 L 08/08/18 20:12 58 L 08/08/18 20:00 97.5 F L 80 20 122/54 97 08/08/18 18:36 97 F L 58 L 18 146/57 99 08/08/18 17:30 67 17 133/63 99 08/08/18 17:00 67 12 97 08/08/18 16:50 70 10 L 98 08/08/18 16:40 68 34 H 98 08/08/18 16:30 100/72 08/08/18 16:20 66 13 100/72 96 08/08/18 16:18 68 08/08/18 16:10 65 25 H 100/72 99 08/08/18 16:04 72 08/08/18 16:00 65 49 H 139/91 96 08/08/18 15:51 98 F 70 16 118/63 99 08/08/18 15:50 68 31 H 139/91 92 L Intake and Output 08/08/18 08/09/18 08/09/18 22:59 06:59 14:59 Intake Total 90 240 Balance 90 240 Intake: Oral 90 240 Other: Voiding Method Bedside Commode Bedside Commode # Voids 1 1 Weight 99.79 kg 96.6 kg - Constitutional General appearance: Present: average body habitus, cooperative, no acute distress - EENT Eyes: Present: anicteric sclerae, EOMI, PERRLA, normal appearance ENT: Present: hearing grossly normal, normal oropharynx Ears: bilateral: normal - Neck Neck: Present: normal ROM. Absent: lymphadenopathy, rigidity, thyromegaly Carotids: negative: bruit present Thyroid: bilateral: normal size, negative: enlarged, nodule - Respiratory Respiratory: bilateral: CTA, negative: rales, rhonchi, wheezing - Cardiovascular Rhythm: regular Heart sounds: normal: S1, S2 Abnormal Heart Sounds: Absent: systolic murmur, diastolic murmur - Gastrointestinal General gastrointestinal: Present: normal bowel sounds, soft. Absent: distended, organomegaly, tenderness - Genitourinary Genitourinary Comment(s): deferred - Integumentary Integumentary: Present: normal turgor. Absent: jaundiced, rash, ulcer - Neurologic Neurologic: Present: CNII-XII intact. Absent: focal deficits - Musculoskeletal Musculoskeletal: Present: gait normal, strength equal bilaterally - Psychiatric Psychiatric: Present: A&O x's 3, appropriate affect, intact judgment & insight Results CBC & Chem 7: 08/09/18 04:25 08/09/18 04:25 Labs: Abnormal Lab Results - Last 24 Hours (Table) 08/08/18 08/08/18 08/08/18 Range/Units 16:15 16:15 16:15 WBC 1.4 L* (3.8-10.6) k/uL RBC 3.56 L (3.80-5.40) m/uL Hgb 11.3 L (11.4-16.0) gm/dL Hct 33.6 L (34.0-46.0) % RDW 16.4 H (11.5-15.5) % Plt Count 17 L* (150-450) k/uL Neutrophils # 0.9 L (1.3-7.7) k/uL Lymphocytes # 0.3 L (1.0-4.8) k/uL Sodium 136 L (137-145) mmol/L Potassium (3.5-5.1) mmol/L Chloride 97 L (98-107) mmol/L Carbon Dioxide 33 H (22-30) mmol/L BUN 19 H (7-17) mg/dL Glucose 167 H (74-99) mg/dL Calcium (8.4-10.2) mg/dL AST 60 H (14-36) U/L ALT 59 H (9-52) U/L Troponin I 0.154 H* (0.000-0.034) ng/mL Total Protein 5.3 L (6.3-8.2) g/dL Albumin 2.9 L (3.5-5.0) g/dL Urine Protein (Negative) 08/08/18 08/08/18 08/09/18 Range/Units 16:45 22:00 04:25 WBC (3.8-10.6) k/uL RBC (3.80-5.40) m/uL Hgb (11.4-16.0) gm/dL Hct (34.0-46.0) % RDW (11.5-15.5) % Plt Count (150-450) k/uL Neutrophils # (1.3-7.7) k/uL Lymphocytes # (1.0-4.8) k/uL Sodium (137-145) mmol/L Potassium (3.5-5.1) mmol/L Chloride (98-107) mmol/L Carbon Dioxide (22-30) mmol/L BUN (7-17) mg/dL Glucose (74-99) mg/dL Calcium (8.4-10.2) mg/dL AST (14-36) U/L ALT (9-52) U/L Troponin I 0.117 H* 0.065 H* (0.000-0.034) ng/mL Total Protein (6.3-8.2) g/dL Albumin (3.5-5.0) g/dL Urine Protein Trace H (Negative) 08/09/18 08/09/18 Range/Units 04:25 04:25 WBC 1.7 L (3.8-10.6) k/uL RBC 2.94 L (3.80-5.40) m/uL Hgb 9.3 L D (11.4-16.0) gm/dL Hct 27.6 L (34.0-46.0) % RDW 17.2 H (11.5-15.5) % Plt Count 15 L* (150-450) k/uL Neutrophils # 1.2 L (1.3-7.7) k/uL Lymphocytes # 0.4 L (1.0-4.8) k/uL Sodium (137-145) mmol/L Potassium 3.1 L (3.5-5.1) mmol/L Chloride (98-107) mmol/L Carbon Dioxide (22-30) mmol/L BUN 26 H (7-17) mg/dL Glucose 110 H (74-99) mg/dL Calcium 7.1 L (8.4-10.2) mg/dL AST (14-36) U/L ALT (9-52) U/L Troponin I (0.000-0.034) ng/mL Total Protein (6.3-8.2) g/dL Albumin (3.5-5.0) g/dL Urine Protein (Negative) Thrombosis Risk Factor Assmnt - Choose All That Apply Other Risk Factors: Yes Each Risk Factor Represents 2 Points: Age 61-74 years Thrombosis Risk Factor Assessment Total Risk Factor Score: 2 Thrombosis Risk Factor Assessment Level: Low Risk Assessment and Plan Assessment: 1. Acute exacerbation CHF - patient is admitted to cardiac telemetry; we will monitor EKG and cardiac enzymes - Cardiology is consulted and await records from other institutions - We will monitor daily weights, strict JESUS's, renal function and electrolytes - Continue with gentle diuresis 2. Elevated troponin rule out acute coronary syndrome - Cardiology on board; no further workup was recommended 3. Pancytopenia/ severe neutropenia and thrombocytopenia; - Eliquis is put on hold; we will monitor CBC closely - Hematology is consulted for further recommendations 4. Hypokalemia; supplement - We will continue to monitor electrolytes closely and supplement if needed 5. MALT lymphoma; status post bowel resection; oncology to follow 6. DVT prophylaxis; SCDs only due to thrombocytopenia CODE STATUS; full code Time with Patient: Greater than 30
[2018-08-09] MEDS ORDERED: IPRATROPIUM-ALBUTEROL 3 ML NEB INHALATION PRN (21:08)
[2018-08-09] MEDS: ATORVASTATIN 40 MG TAB PO SCH (21:18)
[2018-08-09] MEDS: ALPRAZolam 0.25 MG TAB PO PRN (22:35)
[2018-08-10 06:51] LABS: Anisocytosis Slight; Basophils % (A) 0 %; Eosinophils # (A) 0.1 k/uL (0-0.7); Eosinophils % (A) 1 %; HCT 31.3 % (34.0-46.0); HGB 10.4 gm/dL (11.4-16.0); Lymphocytes # (A) 0.4 k/uL (1.0-4.8); Lymphocytes % (A) 14 %; MCH 31.3 pg (25.0-35.0); MCHC 33.1 g/dL (31.0-37.0); MCV 94.5 fL (80.0-100.0); Mean Platelet Volume 10.8; Monocytes # (A) 0.1 k/uL (0-1.0); Monocytes % (A) 4 %; Neutrophils # (A) 2.6 k/uL (1.3-7.7); Neutrophils % (A) 80 %; RBC 3.31 m/uL (3.80-5.40); RDW 16.5 % (11.5-15.5); WBC 3.2 k/uL (3.8-10.6)
[2018-08-10] MEDS: METOCLOPRAMIDE 5 MG TAB PO SCH ×3 (06:53→16:13)
[2018-08-10] MEDS: PANTOPRAZOLE 40 MG TABLET PO SCH (06:53)
[2018-08-10 06:54] LABS: Platelet Count 17 k/uL (150-450)
[2018-08-10 07:26] LABS: Albumin 2.9 g/dL (3.5-5.0); Bilirubin, Delta 0.3 mg/dL (0.0-0.2); Bilirubin,Unconjugated 0.5 mg/dL (0.0-1.1); Calcium 8.4 mg/dL (8.4-10.2); Potassium 3.7 mmol/L (3.5-5.1); Total Bilirubin 0.8 mg/dL (0.2-1.3); Total Protein 5.3 g/dL (6.3-8.2)
[2018-08-10] MEDS: predniSONE 10 MG TAB PO SCH (08:19)
[2018-08-10] MEDS: HYDROcodone/APAP 7.5-325MG 1 EACH TAB PO PRN ×3 (08:20→21:57)
[2018-08-10] MEDS: DOXYCYCLINE 100 MG CAP PO SCH ×2 (08:20→21:59)
[2018-08-10] MEDS: FUROSEMIDE 10 MG/ML 4 ML VIAL IV SCH (08:20)
[2018-08-10] MEDS: MECLIZINE 25 MG TAB PO SCH (08:20)
[2018-08-10] MEDS: METOPROLOL TARTRATE 50 MG TAB PO SCH ×2 (08:20→20:55)
[2018-08-10] MEDS: SYMBICORT 160-4.5 MCG INHALER INHALATION SCH ×2 (08:33→21:36)
[2018-08-10] MEDS: IPRATROPIUM-ALBUTEROL 3 ML NEB INHALATION SCH ×4 (08:33→21:36)
--- NOTE | 2018-08-10 10:15 | P.PN ---
Subjective This is a pleasant 73 years old female with past medical history of COPD, ex- smoker quit about 6-7 years ago. Other past history including congestive heart failure and atrial fibrillation on Eliquis. Who presents because of worsening dyspnea over 2 days associated with cough and yellow phlegm. She has chest pain on admission but is not anymore when I saw her today she denies chest pain or abdominal pain. No change in urine or bowel habits. She follows with Dr. Cowan, draw operator as an outpatient. Today her creatinine went up to 0.7 up to 1.05. Patient is on Lasix 40 mg twice a day. Which we will stop. Also we will change her prednisone 30 mg daily to IV Solu-Medrol 60 mg. Patient is also on doxycycline CONSTITUTIONAL: No fever, no malaise, no fatigue. HEENT: No recent visual problems or hearing problems. Denied any sore throat. CARDIOVASCULAR: no syncope. PULMONARY: no hemoptysis. GASTROINTESTINAL: No diarrhea, no nausea, no vomiting, no abdominal pain. Normoactive bowel sounds. NEUROLOGICAL: No headaches, no weakness, no numbness. HEMATOLOGICAL: Denies any bleeding or petechiae. GENITOURINARY: Denies any burning micturition, frequency, or urgency. MUSCULOSKELETAL/RHEUMATOLOGICAL: Denies any joint pain, swelling, or any muscle pain. ENDOCRINE: Denies any polyuria or polydipsia. Medication: Tylenol, albuterol, Fosamax, Xanax, Lipitor, Symbicort, doxycycline, Lasix, Wana, Dilaudid, meclizine, Reglan, Lopressor, potassium, Protonix, prednisone. Objective - Vital Signs Vital signs: Vital Signs Temp 98.1 F 08/10/18 07:49 Pulse 60 08/10/18 08:44 Resp 18 08/10/18 07:49 BP 157/84 08/10/18 07:49 Pulse Ox 99 08/10/18 07:49 Intake & Output 08/09/18 08/10/18 08/10/18 18:59 06:59 18:59 Intake Total 600 120 240 Output Total 400 200 Balance 600 -280 40 Weight 96.8 kg 96.8 kg Intake: Oral 600 120 240 Output: Urine 400 200 Other: Voiding Method Bedside Commode # Voids 1 1 - Labs CBC & Chem 7: 08/10/18 06:30 08/10/18 06:30 Labs: Abnormal Lab Results - Last 24 Hours (Table) 08/10/18 08/10/18 Range/Units 06:30 06:30 WBC 3.2 L (3.8-10.6) k/uL RBC 3.31 L (3.80-5.40) m/uL Hgb 10.4 L (11.4-16.0) gm/dL Hct 31.3 L (34.0-46.0) % RDW 16.5 H (11.5-15.5) % Plt Count 17 L* (150-450) k/uL Lymphocytes # 0.4 L (1.0-4.8) k/uL Carbon Dioxide 34 H (22-30) mmol/L BUN 43 H (7-17) mg/dL Creatinine 1.05 H (0.52-1.04) mg/dL Delta Bilirubin 0.3 H (0.0-0.2) mg/dL Total Protein 5.3 L (6.3-8.2) g/dL Albumin 2.9 L (3.5-5.0) g/dL Assessment and Plan Assessment: Mostly COPD acute exacerbation Pancytopenia Acute kidney injury, mostly prerenal. History of CHF, I don't think is an active issue currently. Previous a smoker History of atrial fibrillation on Eliquis Plan: This is a pleasant 73 years old female who presents with acute COPD exacerbation rather than congestive heart failure. Also she has pancytopenia, mainly thrombocytopenia. Hematology oncology consult is already called. Cardiology input is appreciated. Continue with steroids, antibiotics, breathing treatment. For acute kidney injury and given a small IV bolus.Labs and medication were reviewed.. Continue same treatment. Continue with symptomatic treatment. Resume home medication. Monitor lytes and vitals. DVT and GI prophylaxis. Further recommendations of the clinical course of the patient DVT prophylaxis: Eliquis is on hold for thrombocytopenia GI Prophylaxis: Ppi PT/OT: Pending Prognosis is guarded
--- NOTE | 2018-08-10 12:52 | ECHOF ---
Referral Reason:chf MEASUREMENTS -------- HEIGHT: 162.6 cm WEIGHT: 96.6 kg BP: 135/86 IVSd: 1.4 cm (0.6 - 1.1) LVIDd: 2.2 cm (3.9 - 5.3) LVPWd: 1.7 cm (0.6 - 1.1) IVSs: 1.5 cm LVIDs: 1.5 cm LVPWs: 2.0 cm Ao Diam: 3.2 cm (2.0 - 3.7) AV Cusp: 1.8 cm (1.5 - 2.6) LA Diam: 2.9 cm (2.7 - 3.8) MV E Felipe: 0.97 m/s MV A Felipe: 1.43 m/s MV E/A Ratio: 0.68 RAP: 5.00 mmHg RVSP: 10.65 mmHg FINDINGS -------- Sinus rhythm. This was a technically difficult study with suboptimal views. The left ventricular size is normal. There is moderate concentric left ventricular hypertrophy. O verall left ventricular systolic function is normal with, an EF between 55 - 60 %. The RV was not well visualized. The left atrial size is normal. The right atrial size is normal. Interatrial and interventricular septum intact. The aortic valve was not well visualized. The mitral valve leaflets are mildly thickened. There is trace mitral regurgitation. Trace tricuspid regurgitation present. The right ventricular systolic pressure, as measured by Dopp ler, is 10.65mmHg. The pulmonic valve was not well visualized. The aortic root size is normal. IVC Not well visulized. There is no pericardial effusion. CONCLUSIONS -------- 1. Sinus rhythm. 2. This was a technically difficult study with suboptimal views. 3. The left ventricular size is normal. 4. There is moderate concentric left ventricular hypertrophy. 5. Overall left ventricular systolic function is normal with, an EF between 55 - 60 %. 6. The RV was not well visualized. 7. The left atrial size is normal. 8. The right atrial size is normal. 9. Interatrial and interventricular septum intact. 10. The aortic valve was not well visualized. 11. The mitral valve leaflets are mildly thickened. 12. There is trace mitral regurgitation. 13. Trace tricuspid regurgitation present. 14. The right ventricular systolic pressure, as measured by Doppler, is 10.65mmHg. 15. The pulmonic valve was not well visualized. 16. The aortic root size is normal. 17. IVC Not well visulized. 18. There is no pericardial effusion. INTERPRETER: Ade Correa RDCS
--- NOTE | 2018-08-10 12:57 | P.PN ---
Subjective Progress Note Date: 08/10/18 This is a pleasant 73-year-old female who has a known history of congestive cardiac failure, paroxysmal atrial fibrillation, carcinoma for which she is on chemotherapy, she has MALT lymphoma of the small bowel, she had recently been in [facility], was admitted here to [facility] with symptoms of progressively worsening shortness of breath, her BNP was elevated on admission here. Since admission here the patient does feel overall quite a bit better with her breathing, she had diuresed on IV Lasix. Her overall weight is down 3 kg from admission. White blood cell count 3.2, hemoglobin 10.4, platelet count 17. Sodium 139, potassium 3.7, BUN 43 and creatinine 1.0. At the time of my examination this morning, patient states she generally just does not feel well, she did not sleep very many hours last night, and is very sleepy this morning and weak. She states that her breathing is back to her normal. Blood pressure 156/80 with a heart rate in the 60s, 99% on room air. Objective - Vital Signs Vital signs: Vital Signs Temp 98.1 F 08/10/18 07:49 Pulse 64 08/10/18 11:40 Resp 18 08/10/18 11:55 BP 157/84 08/10/18 07:49 Pulse Ox 99 08/10/18 07:49 Intake & Output 08/09/18 08/10/18 08/10/18 18:59 06:59 18:59 Intake Total 600 120 240 Output Total 400 400 Balance 600 -280 -160 Weight 96.8 kg 96.8 kg Intake: Oral 600 120 240 Output: Urine 400 400 Other: Voiding Method Bedside Commode # Voids 1 1 - Exam PHYSICAL EXAMINATION: GENERAL: 73-year-old female in no acute distress at the time of my examination HEENT: Head is atraumatic, normocephalic. Pupils equal, round. Sclera anicter ic. Conjunctiva are clear. Mucous membranes of the mouth are moist. Neck is supple. There is no elevated jugular venous pressure. No carotid bruit is heard. HEART EXAMINATION: Heart S1 S2 1 systolic murmur is heard CHEST EXAMINATION: Lungs are clear with diminished air entry to bilateral bases. ABDOMEN: Soft, nontender. Bowel sounds are heard. No organomegaly noted. EXTREMITIES: 2+ peripheral pulses with no evidence of peripheral edema and no calf tenderness noted. NEUROLOGIC patient is awake, alert and oriented 3 . . - Labs CBC & Chem 7: 08/10/18 06:30 08/10/18 06:30 Labs: Abnormal Lab Results - Last 24 Hours (Table) 08/10/18 08/10/18 Range/Units 06:30 06:30 WBC 3.2 L (3.8-10.6) k/uL RBC 3.31 L (3.80-5.40) m/uL Hgb 10.4 L (11.4-16.0) gm/dL Hct 31.3 L (34.0-46.0) % RDW 16.5 H (11.5-15.5) % Plt Count 17 L* (150-450) k/uL Lymphocytes # 0.4 L (1.0-4.8) k/uL Carbon Dioxide 34 H (22-30) mmol/L BUN 43 H (7-17) mg/dL Creatinine 1.05 H (0.52-1.04) mg/dL Delta Bilirubin 0.3 H (0.0-0.2) mg/dL Total Protein 5.3 L (6.3-8.2) g/dL Albumin 2.9 L (3.5-5.0) g/dL Assessment and Plan Plan: Assessment and plan #1 congestive heart failure, we function unknown, echo has been performed which is yet pending. #2 abnormality in troponin, not consistent with acute coronary syndrome, no significant rise and fall pattern. #3 paroxysmal atrial fibrillation #4 prior TIA #5 history of DVT #6 hyperlipidemia #7 hypertension #8 COPD #9 nonobstructive coronary artery disease by cardiac catheterization which was performed in 2016 #10 prior diagnosis of apical ballooning syndrome in 2016 #11 MALT lymphoma of the small bowel, bowel resection was performed in 2014 #12 peripheral vascular disease with prior iliac stenting #13 pancytopenia Plan We'll review the echocardiogram with Doppler study. Discontinue IV Lasix. Add an angiotensin michelle to her medication regime to optimize blood pressure control. Patient is not currently on aspirin or anticoagulation because of the pancytopenia, her platelet count is 17 today. DNP note has been reviewed, I agree with a documented findings and plan of care. Patient was seen and examined.
--- NOTE | 2018-08-10 15:13 | P.CONS ---
History of Present Illness - Reason for Consult Consult date: 08/10/18 NHL Requesting physician: Shaina Riggs - Chief Complaint SOB - History of Present Illness This is a very nice lady who presented to ER with acute abdominal pain on 04/02/2015,had a CT scan of abdomen/pelvis on 04/02/2015 which revealed 4.3x4.7cm small bowel mass causing obstruction,no other suspicious finding or adenopathies. 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 On 04/12/2015,CT scan of chest was negative for any significant adenopathies. She is known to me,she was evaluated once in 2011 because she had ischemic leg in which required a stent of the right common iliac artery and had been on warfarin until when I saw her and warfarin was discontinued and went on aspirin and subsequently was put back on eliquis per her safety assistant for A-fib. She recovered from her small bowel resection,no constipation/diarrhea,no nausea or vomiting,no systemic symptoms,she has significant issues with her back pain and claudication,ambulates with a walker. She did well until when she had recurrent nausea/abdominal pain,had repeat CT scan of abdomen/pelvis on 12/22/2015 which revealed recurrent soft tissue mesenteric mass. 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 She started rituxan weekly on 02/16/2016 and completed 4 treatments on 03/07/2016. Repeat CT scan of chest/abdomen/pelvis on 04/29/2016 revealed no evidence of disease. On 07/29/2016,she presented with acute abdominal pain,had a CT scan of abdomen which revealed acute cholecystitis,smaller mesenteric mass (related to her known lymphoma),she ended up having cholecystectomy. On 03/02/2018,repeat CT scan of chest/abdomen/pelvis revealed significant progression of abdominal adenopaties. On 04/22/2018,repeat CT scan guided biopsy revealed recurrend low grade B cell lymphoma,consistent with marginal zone lymphoma,VS plasmalymphocytic,however,MYD 88 was negative. She started BR regimen on 05/19/[address] scan of abdomen/pelvis on 06/29/2018 (after 2 cycles of BR) revealed s ignificant decrease in size. She feels progressivley tired,her abdominal pain is better,her nausea is better with zofran/ no vomiting,had significant diarreha after the CT scan which is much better,has chronic fatigue and arthritic pain,no systemic symptoms, her mouth sores resolved. 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 Peripheral vascular disease with a previous history of iliac artery stenting Last Myocardial Infarction Date:: 2015 History of Any Multi-Drug Resistant Organisms: None Reported Past Surgical History: Cholecystectomy, Joint Replacement, Tonsillectomy Additional Past Surgical History / Comment(s): Small bowel resection for resection of a MALT tumor, cataract surgery in the right eye, tooth extraction, right hip ORIF, tonsillectomy, laparoscopic cholecystectomy, cardiac c atheterization back in 2015, iliac artery stenting, EGD. Past Anesthesia/Blood Transfusion Reactions: No Reported Reaction Past Psychological History: No Psychological Hx Reported Additional Psychological History / Comment(s): PT STATED SHE LIVES WITH HER SON, USES A WALKER WHEN UP. RECEIVES" [employer] [facility]" Smoking Status: Former smoker Past Alcohol Use History: None Reported Additional Past Alcohol Use History / Comment(s): quit 2011 Past Drug Use History: None Reported - Past Family History Mother Family Medical History: No Reported History Additional Family Medical History / Comment(s): . Father History Unknown: Yes Family Medical History: Diabetes Mellitus Medications and Allergies Home Medications Medication Instructions Recorded Confirmed Type Meclizine [Antivert] 25 mg PO DAILY 12/20/16 08/08/18 History Fluticasone/Vilanterol [Breo 1 puff INHALATION RT-DAILY 04/01/17 08/08/18 History Ellipta 200-25 Mcg INH] ALPRAZolam [Xanax] 0.25 mg PO Q8H PRN #20 tablet 04/15/17 08/08/18 Rx Atorvastatin [Lipitor] 40 mg PO HS tab 04/15/17 08/08/18 Rx Apixaban [Eliquis] 2.5 mg PO BID 05/14/17 08/08/18 History Pantoprazole Sodium [Protonix] 40 mg PO DAILY 06/20/17 08/08/18 History Alendronate Sodium [Fosamax] 70 mg PO FR 08/08/18 08/08/18 History Doxycycline Monohydrate [Monodox] 100 mg PO BID 08/08/18 08/08/18 History Hydrocodone/Acetaminophen [[place] 1 tab PO Q6HR PRN 08/08/18 08/08/18 History 7.5-325] Ipratropium-Albuterol Nebulize 3 ml INHALATION RT-Q6H 08/08/18 08/08/18 History [Duoneb 0.5 mg-3 mg/3 ml Soln] Metoclopramide HCl [Reglan] 5 mg PO AC-TID 08/08/18 08/08/18 History Metoprolol Tartrate [Lopressor] 50 mg PO BID 08/08/18 08/08/18 History predniSONE See Taper PO DIRECTED 08/08/18 08/08/18 History Allergies Allergy/AdvReac Type Severity Reaction Status Date / Time Sulfa (Sulfonamide Allergy Anaphylaxis Verified 08/08/18 17:06 Antibiotics) Physical Exam Vitals: Vital Signs Temp Pulse Pulse Resp BP Pulse Ox 08/10/18 12:00 98.1 F 70 18 139/67 98 08/10/18 11:55 18 08/10/18 11:40 64 08/10/18 11:34 68 08/10/18 08:44 60 08/10/18 08:35 64 08/10/18 08:00 18 08/10/18 07:49 98.1 F 68 18 157/84 99 08/10/18 04:00 98.1 F 63 18 135/86 98 08/10/18 00:00 98.2 F 64 20 125/63 96 04/21/19 20:00 98.1 F 66 18 111/65 97 08/09/18 16:00 64 20 131/75 93 L Intake and Output 08/09/18 08/10/18 08/10/18 22:59 06:59 14:59 Intake Total 120 240 Output Total 400 400 Balance 120 -400 -160 Intake: Oral 120 240 Output: Urine 400 400 Other: Voiding Method Bedside Commode Bedside Commode # Voids 1 1 Weight 96.8 kg 96.8 kg Gen: Alert NAD Head: NCNT Neck: Supple Heart:Tachy, Reg Abdomen: Soft, tender Lungs: Diminished Bilateral Bases Ext: BLE edema mild Neuro no sensory or motor deficits. Results CBC & Chem 7: 08/10/18 06:30 08/10/18 06:30 Labs: Abnormal Lab Results - Last 24 Hours (Table) 08/10/18 08/10/18 Range/Units 06:30 06:30 WBC 3.2 L (3.8-10.6) k/uL RBC 3.31 L (3.80-5.40) m/uL Hgb 10.4 L (11.4-16.0) gm/dL Hct 31.3 L (34.0-46.0) % RDW 16.5 H (11.5-15.5) % Plt Count 17 L* (150-450) k/uL Lymphocytes # 0.4 L (1.0-4.8) k/uL Carbon Dioxide 34 H (22-30) mmol/L BUN 43 H (7-17) mg/dL Creatinine 1.05 H (0.52-1.04) mg/dL Delta Bilirubin 0.3 H (0.0-0.2) mg/dL Total Protein 5.3 L (6.3-8.2) g/dL Albumin 2.9 L (3.5-5.0) g/dL Chest x-ray: report reviewed Abdominal x-ray: report reviewed Assessment and Plan Plan: Assessment and Recs: Non-Hodgkins Lymphoma: Low Grade Small B Cell - Status Post Cycle 3 of 4 of Bendamustine and Rituxan on 07/16/18 Pancytopenia - Secondary to Chemotherapy and Malignancy - Hold Eliquis anticoagulation until platlets greater than 50K - Monitor CBC daily, transfuse Hgb less than 7, platlet less than 10 Exacerbation Of CHF: - Per Primary Team Physician Attestation: I ahve ocmpleted the full history and physcial and developed the completed impression and plan. Agree with above, dictated as a scribe
[2018-08-10] MEDS: methylPREDNISolone SOD SUCCI 125 MG/2 ML VIAL IV SCH (16:12)
[2018-08-10] MEDS: SODIUM CHLORIDE 0.9% 250 ML IV SCH ×3 (16:13→21:48)
[2018-08-10] MEDS: ATORVASTATIN 40 MG TAB PO SCH (20:55)
[2018-08-10] MEDS: ALPRAZolam 0.25 MG TAB PO PRN (22:00)
[2018-08-11] MEDS: methylPREDNISolone SOD SUCCI 125 MG/2 ML VIAL IV SCH ×4 (00:45→23:42)
[2018-08-11] MEDS: HYDROcodone/APAP 7.5-325MG 1 EACH TAB PO PRN ×4 (05:09→23:42)
[2018-08-11] MEDS: PANTOPRAZOLE 40 MG TABLET PO SCH (06:33)
[2018-08-11] MEDS: METOCLOPRAMIDE 5 MG TAB PO SCH ×3 (06:33→17:19)
[2018-08-11 06:51] LABS: Anisocytosis Slight; HGB 10.4 gm/dL (11.4-16.0); MCH 31.8 pg (25.0-35.0); MCHC 33.4 g/dL (31.0-37.0); Mean Platelet Volume 11.2; RBC 3.26 m/uL (3.80-5.40); RDW 16.3 % (11.5-15.5); WBC 3.2 k/uL (3.8-10.6)
[2018-08-11 06:59] LABS: Calcium 8.8 mg/dL (8.4-10.2); Platelet Count 15 k/uL (150-450); Potassium 4.5 mmol/L (3.5-5.1)
[2018-08-11] MEDS: DOXYCYCLINE 100 MG CAP PO SCH ×2 (07:57→20:44)
[2018-08-11] MEDS: METOPROLOL TARTRATE 50 MG TAB PO SCH ×2 (07:57→20:44)
[2018-08-11] MEDS: MECLIZINE 25 MG TAB PO SCH (07:58)
[2018-08-11] MEDS: SODIUM CHLORIDE 0.9% 250 ML IV SCH ×2 (08:20→12:57)
[2018-08-11] MEDS: IPRATROPIUM-ALBUTEROL 3 ML NEB INHALATION SCH ×4 (08:36→21:00)
[2018-08-11] MEDS: SYMBICORT 160-4.5 MCG INHALER INHALATION SCH ×2 (08:36→21:00)
[2018-08-11 09:25] LABS: Lymphocytes # (M) 0.22 k/uL (1.0-4.8); Neutrophils # (M) 2.98 k/uL (1.3-7.7); Neutrophils % (M) 93 %; Nucleated Red Blood Cells 0 /100 WBC (0-0); Total Cells Counted 100
[2018-08-11] MEDS ORDERED: LOPERAMIDE 2 MG CAP PO STA (12:12)
--- NOTE | 2018-08-11 13:28 | P.PN ---
Subjective This is a pleasant 73 years old female with past medical history of COPD, ex- smoker quit about 6-7 years ago. Other past history including congestive heart failure and atrial fibrillation on Eliquis. Who presents because of worsening dyspnea over 2 days associated with cough and yellow phlegm. She has chest pain on admission but is not anymore when I saw her today she denies chest pain or abdominal pain. No change in urine or bowel habits. She follows with Dr. Cowan, mother superior as an outpatient. Today her creatinine went up to 0.7 up to 1.05. Patient is on Lasix 40 mg twice a day. Which we will stop. Also we will change her prednisone 30 mg daily to IV Solu-Medrol 60 mg. Patient is also on doxycycline 08/11/2018 Patient breathing is improving. However she still feels generally weak. She says that her cough and phlegm is a little better. Patient also has chronic abdominal pain which she states it's for months now mostly related to lymphoma as per patient also. Patient is hemodynamically stable. She has pancytopenia edges similar to yesterday. Mainly her platelets are low at 15. Her anticoagulation are on hold. Creatinine is 0.96. Most likely patient will need to go to [facility] for rehab upon discharge. Patient is been followed by hematology/oncology team and their input is appreciated. Case was discussed wit h hematology oncology team. CONSTITUTIONAL: No fever, no malaise, no fatigue. HEENT: No recent visual problems or hearing problems. Denied any sore throat. CARDIOVASCULAR: no syncope. PULMONARY: no hemoptysis. GASTROINTESTINAL: No diarrhea, no nausea, no vomiting, no abdominal pain. Normoactive bowel sounds. NEUROLOGICAL: No headaches, no weakness, no numbness. HEMATOLOGICAL: Denies any bleeding or petechiae. GENITOURINARY: Denies any burning micturition, frequency, or urgency. MUSCULOSKELETAL/RHEUMATOLOGICAL: Denies any joint pain, swelling, or any muscle pain. ENDOCRINE: Denies any polyuria or polydipsia. Medication: Tylenol, albuterol, Fosamax, Xanax, Lipitor, Symbicort, doxycycline, Lasix, Armbrust, Dilaudid, meclizine, Reglan, Lopressor, potassium, Protonix, pr ednisone. Objective - Vital Signs Vital signs: Vital Signs Temp 97.4 F L 08/11/18 12:00 Pulse 68 08/11/18 12:06 Resp 18 08/11/18 12:00 BP 123/83 08/11/18 12:00 Pulse Ox 98 08/11/18 12:00 Intake & Output 08/10/18 08/11/18 08/11/18 18:59 06:59 18:59 Intake Total 480 Output Total 800 700 Balance -320 -700 Weight 96.7 kg Intake: Oral 480 Output: Urine 800 700 Other: Voiding Method Bedside Commode # Voids 1 - Exam GENERAL: The patient is alert and oriented x3, not in any acute distress. Well developed, well nourished. HEENT: Pupils are round and equally reacting to light. EOMI. No scleral icterus. No conjunctival pallor. Normocephalic, atraumatic. No pharyngeal erythema. No thyromegaly. CARDIOVASCULAR: S1 and S2 present. No murmurs, rubs, or gallops. PULMONARY: Chest is clear to auscultation, no wheezing or crackles. ABDOMEN: Soft, nontender, nondistended, normoactive bowel sounds. No palpable organomegaly. MUSCULOSKELETAL: No joint swelling or deformity. EXTREMITIES: No cyanosis, clubbing, or pedal edema. NEUROLOGICAL: Gross neurological examination did not reveal any focal deficits. SKIN: No rashes. - Labs CBC & Chem 7: 08/11/18 06:20 08/11/18 06:20 Labs: Abnormal Lab Results - Last 24 Hours (Table) 08/11/18 08/11/18 Range/Units 06:20 06:20 WBC 3.2 L (3.8-10.6) k/uL RBC 3.26 L (3.80-5.40) m/uL Hgb 10.4 L (11.4-16.0) gm/dL Hct 31.0 L (34.0-46.0) % RDW 16.3 H (11.5-15.5) % Plt Count 15 L* (150-450) k/uL Lymphocytes # (Manual) 0.22 L (1.0-4.8) k/uL Carbon Dioxide 33 H (22-30) mmol/L BUN 39 H (7-17) mg/dL Glucose 137 H (74-99) mg/dL Assessment and Plan Assessment: Mostly COPD acute exacerbation Pancytopenia Acute kidney injury, mostly prerenal. History of CHF, I don't think is an active issue currently. Previous a smoker History of atrial fibrillation on Eliquis Plan: This is a pleasant 73 years old female who presents with acute COPD exacerbation rather than congestive heart failure. Also she has pancytopenia, mainly thrombocytopenia. Hematology oncology consult is already called. Cardiology input is appreciated. Continue with steroids, antibiotics, breathing treatment. For acute kidney injury and given a small IV bolus.Labs and medication were reviewed.. Continue same treatment. Continue with symptomatic treatment. Resume home medication. Monitor lytes and vitals. DVT and GI prophylaxis. Further recommendations of the clinical course of the patient DVT prophylaxis: Eliquis is on hold for thrombocytopenia GI Prophylaxis: Ppi PT/OT: Pending Prognosis is guarded
--- NOTE | 2018-08-11 14:10 | P.PN ---
Subjective Progress Note Date: 08/11/18 This is a pleasant 73-year-old female who has a known history of congestive cardiac failure, paroxysmal atrial fibrillation, carcinoma for which she is on chemotherapy, she has MALT lymphoma of the small bowel, she had recently been in [facility], was admitted here to [facility] with symptoms of progressively worsening shortness of breath, her BNP was elevated on admission here. Since admission here the patient does feel overall quite a bit better with her breathing, she had diuresed on IV Lasix. Her overall weight is down 3 kg from admission. White blood cell count 3.2, hemoglobin 10.4, platelet count 17. Sodium 139, potassium 3.7, BUN 43 and creatinine 1.0. At the time of my examination this morning, patient states she generally just does not feel well, she did not sleep very many hours last night, and is very sleepy this morning and weak. She states that her breathing is back to her normal. Blood pressure 156/80 with a heart rate in the 60s, 99% on room air. 08/11/2018 Patient was seen and examined this morning, she overall looks better today than she did yesterday, she does still feel tired however slept much better through the night last night and her breathing today is overall stable. Blood pressure 122/80 with a heart rate in the 60s, 98% on 2 L of oxygen. Blood cell count 3.2, hemoglobin 10.4, lately count 15. Sodium 138, potassium 4.5, BUN 39 and creatinine 0.9. Objective - Vital Signs Vital signs: Vital Signs Temp 97.4 F L 08/11/18 12:00 Pulse 68 08/11/18 12:06 Resp 18 08/11/18 12:00 BP 123/83 08/11/18 12:00 Pulse Ox 98 08/11/18 12:00 Intake & Output 08/10/18 08/11/18 08/11/18 18:59 06:59 18:59 Intake Total 480 Output Total 800 700 Balance -320 -700 Weight 96.7 kg Intake: Oral 480 Output: Urine 800 700 Other: Voiding Method Bedside Commode # Voids 1 - Exam PHYSICAL EXAMINATION: GENERAL: 73-year-old female in no acute distress at the time of my examination HEENT: Head is atraumatic, normocephalic. Pupils equal, round. Sclera anicte deshaun. Conjunctiva are clear. Mucous membranes of the mouth are moist. Neck is supple. There is no elevated jugular venous pressure. No carotid bruit is heard. HEART EXAMINATION: Heart S1 S2 1 systolic murmur is heard CHEST EXAMINATION: Lungs are clear with diminished air entry to bilateral bases. ABDOMEN: Soft, nontender. Bowel sounds are heard. No organomegaly noted. EXTREMITIES: 2+ peripheral pulses with no evidence of peripheral edema and no calf tenderness noted. NEUROLOGIC patient is awake, alert and oriented 3 . . - Labs CBC & Chem 7: 08/11/18 06:20 08/11/18 06:20 Labs: Abnormal Lab Results - Last 24 Hours (Table) 08/11/18 08/11/18 Range/Units 06:20 06:20 WBC 3.2 L (3.8-10.6) k/uL RBC 3.26 L (3.80-5.40) m/uL Hgb 10.4 L (11.4-16.0) gm/dL Hct 31.0 L (34.0-46.0) % RDW 16.3 H (11.5-15.5) % Plt Count 15 L* (150-450) k/uL Lymphocytes # (Manual) 0.22 L (1.0-4.8) k/uL Carbon Dioxide 33 H (22-30) mmol/L BUN 39 H (7-17) mg/dL Glucose 137 H (74-99) mg/dL Assessment and Plan Plan: Assessment and plan #1 congestive heart failure, we function unknown, echo has been performed which is yet pending. #2 abnormality in troponin, not consistent with acute coronary syndrome, no significant rise and fall pattern. 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 Patient is on oral diuretics. We will continue current medications and discharged once cleared by primary. DNP note has been reviewed, I agree with a documented findings and plan of care. Patient was seen and examined.
[2018-08-11] MEDS: ATORVASTATIN 40 MG TAB PO SCH (20:44)
--- NOTE | 2018-08-11 21:50 | P.PN ---
Subjective Progress Note Date: 08/11/18 Principal diagnosis: cytopenias Platlets are again 15K today, stable, no bleeding Objective - Vital Signs Vital signs: Vital Signs Temp 97.5 F L 08/11/18 16:00 Pulse 74 08/11/18 21:15 Resp 18 08/11/18 16:00 BP 147/75 08/11/18 16:00 Pulse Ox 98 08/11/18 16:58 Intake & Output 08/11/18 08/11/18 08/12/18 06:59 18:59 06:59 Intake Total 240 Output Total 700 Balance -700 240 Weight 96.7 kg Intake: Oral 240 Output: Urine 700 Other: Voiding Method Bedside Commode # Voids 1 1 # Bowel Movements 0 - Exam Gen: Alert NAD Head: NCNT Neck: Supple Heart:Tachy, Reg Abdomen: Soft, tender Lungs: Diminished Bilateral Bases Ext: BLE edema mild Neuro no sensory or motor deficits. - Labs CBC & Chem 7: 08/11/18 06:20 08/11/18 06:20 Labs: Abnormal Lab Results - Last 24 Hours (Table) 08/11/18 08/11/18 Range/Units 06:20 06:20 WBC 3.2 L (3.8-10.6) k/uL RBC 3.26 L (3.80-5.40) m/uL Hgb 10.4 L (11.4-16.0) gm/dL Hct 31.0 L (34.0-46.0) % RDW 16.3 H (11.5-15.5) % Plt Count 15 L* (150-450) k/uL Lymphocytes # (Manual) 0.22 L (1.0-4.8) k/uL Carbon Dioxide 33 H (22-30) mmol/L BUN 39 H (7-17) mg/dL Glucose 137 H (74-99) mg/dL Assessment and Plan Plan: Assessment and Recs: Non-Hodgkins Lymphoma: Low Grade Small B Cell - Status Post Cycle 3 of 4 of Bendamustine and Rituxan on 07/16/18 Pancytopenia - Secondary to Chemotherapy and Malignancy - Hold Eliquis anticoagulation until platlets greater than 50K - Monitor CBC daily, transfuse Hgb less than 7, platlet less than 10 Exacerbation Of CHF: - Per Primary Team Plan: - CBC in AM - COntinue to hold AC until platlets greater than 50K - If afebrile and no signs of bleeding ok to follow cbc closely outpatient Physician Attestation: I ahve ocmpleted the full history and physcial and developed the completed impression and plan. Agree with above, dictated as a sc ribe
[2018-08-11] MEDS: ALPRAZolam 0.25 MG TAB PO PRN (23:42)
[2018-08-12] MEDS: METOCLOPRAMIDE 5 MG TAB PO SCH ×3 (06:32→15:58)
[2018-08-12] MEDS: PANTOPRAZOLE 40 MG TABLET PO SCH (06:32)
[2018-08-12] MEDS: HYDROcodone/APAP 7.5-325MG 1 EACH TAB PO PRN ×3 (06:34→22:12)
[2018-08-12 07:26] LABS: Anisocytosis Slight; Basophils % (A) 0 %; Eosinophils % (A) 0 %; HGB 9.9 gm/dL (11.4-16.0); Lymphocytes # (A) 0.3 k/uL (1.0-4.8); Lymphocytes % (A) 9 %; MCH 30.6 pg (25.0-35.0); MCHC 32.1 g/dL (31.0-37.0); MCV 95.4 fL (80.0-100.0); Monocytes # (A) 0.1 k/uL (0-1.0); Monocytes % (A) 3 %; Neutrophils # (A) 3.1 k/uL (1.3-7.7); Neutrophils % (A) 87 %; RBC 3.25 m/uL (3.80-5.40); RDW 16.4 % (11.5-15.5); WBC 3.6 k/uL (3.8-10.6)
[2018-08-12 07:31] LABS: Platelet Count 18 k/uL (150-450)
[2018-08-12] MEDS: methylPREDNISolone SOD SUCCI 125 MG/2 ML VIAL IV SCH ×3 (08:29→23:55)
[2018-08-12] MEDS: MECLIZINE 25 MG TAB PO SCH (08:30)
[2018-08-12] MEDS: DOXYCYCLINE 100 MG CAP PO SCH ×2 (08:30→19:58)
[2018-08-12] MEDS: METOPROLOL TARTRATE 50 MG TAB PO SCH ×2 (08:30→19:58)
[2018-08-12] MEDS: SYMBICORT 160-4.5 MCG INHALER INHALATION SCH ×2 (09:30→19:59)
[2018-08-12] MEDS: IPRATROPIUM-ALBUTEROL 3 ML NEB INHALATION SCH ×4 (09:30→19:59)
[2018-08-12] MEDS: ALPRAZolam 0.25 MG TAB PO PRN ×2 (11:54→23:55)
--- NOTE | 2018-08-12 11:59 | P.PN ---
Subjective Progress Note Date: 08/12/18 This is a pleasant 73-year-old female who has a known history of congestive cardiac failure, paroxysmal atrial fibrillation, carcinoma for which she is on chemotherapy, she has MALT lymphoma of the small bowel, she had recently been in [facility], was admitted here to [facility] with symptoms of progressively worsening shortness of breath, her BNP was elevated on admission here. Since admission here the patient does feel overall quite a bit better with her breathing, she had diuresed on IV Lasix. Her overall weight is down 3 kg from admission. White blood cell count 3.2, hemoglobin 10.4, platelet count 17. Sodium 139, potassium 3.7, BUN 43 and creatinine 1.0. At the time of my examination this morning, patient states she generally just does not feel well, she did not sleep very many hours last night, and is very sleepy this morning and weak. She states that her breathing is back to her normal. Blood pressure 156/80 with a heart rate in the 60s, 99% on room air. 08/11/2018 Patient was seen and examined this morning, she overall looks better today than she did yesterday, she does still feel tired however slept much better through the night last night and her breathing today is overall stable. Blood pressure 122/80 with a heart rate in the 60s, 98% on 2 L of oxygen. Blood cell count 3.2, hemoglobin 10.4, lately count 15. Sodium 138, potassium 4.5, BUN 39 and creatinine 0.9. 2018 Patient was seen and examined this morning, she does feel better overall. She is anticipating transferred to rehab today. Blood pressure 150/80 with a heart rate in the 60s, 99% on 2 L of oxygen. We will add a small dose of Cozaar to her medication regime. She may be able to be transferred today. Objective - Vital Signs Vital signs: Vital Signs Temp 97.6 F 08/12/18 08:10 Pulse 68 08/12/18 09:43 Resp 18 08/12/18 08:10 BP 159/89 08/12/18 08:10 Pulse Ox 99 08/12/18 08:10 Intake & Output 08/11/18 08/12/18 08/12/18 18:59 06:59 18:59 Intake Total 240 240 Balance 240 240 Weight 97.4 kg Intake: Oral 240 240 Other: Voiding Method Bedside Commode # Voids 1 2 1 # Bowel Movements 0 - Exam PHYSICAL EXAMINATION: GENERAL: 73-year-old female in no acute distress at the time of my examination HEENT: Head is atraumatic, normocephalic. Pupils equal, round. Sclera anicteric. Conjunctiva are clear. Mucous membranes of the mouth are moist. Neck is supple. There is no elevated jugular venous pressure. No carotid bruit is heard. HEART EXAMINATION: Heart S1 S2 1 systolic murmur is heard CHEST EXAMINATION: Lungs are clear with diminished air entry to bilateral bases. ABDOMEN: Soft, nontender. Bowel sounds are heard. No organomegaly noted. EXTREMITIES: 2+ peripheral pulses with no evidence of peripheral edema and no calf tenderness noted. NEUROLOGIC patient is awake, alert and oriented 3 . . - Labs CBC & Chem 7: 08/12/18 06:50 08/11/18 06:20 Labs: Abnormal Lab Results - Last 24 Hours (Table) 08/12/18 Range/Units 06:50 WBC 3.6 L (3.8-10.6) k/uL RBC 3.25 L (3.80-5.40) m/uL Hgb 9.9 L (11.4-16.0) gm/dL Hct 31.0 L (34.0-46.0) % RDW 16.4 H (11.5-15.5) % Plt Count 18 L* (150-450) k/uL Lymphocytes # 0.3 L (1.0-4.8) k/uL Assessment and Plan Plan: Assessment and plan #1 congestive heart failure, we function unknown, echo has been performed which is yet pending. #2 abnormality in troponin, not consistent with acute coronary syndrome, no significant rise and fall pattern. 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 She may be transferred to rehab today from our perspective. Follow-up with her ski tow operator post discharge. DNP note has been reviewed, I agree with a documented findings and plan of care. Patient was seen and examined.
[2018-08-12] MEDS ORDERED: HYDROmorphone 2 MG TAB PO PRN (12:03)
[2018-08-12] MEDS ORDERED: HYDROmorphone 4 MG TABLET PO PRN (12:03)
--- NOTE | 2018-08-12 13:16 | CDI ---
Documentation Clarification Form Date: 08/12/2018 12:59:23 PM From: Sofia Colón RN CCDS Admit Date: 08/08/2018 5:08:00 PM Patient Name: Maureen Anand Visit Number: [id number] Discharge Date: ATTENTION: The Clinical Documentation Specialists (CDI) and [facility] Coding Staff appreciate your assistance in clarifying documentation. Please respond to the clarification below the line at the bottom and electronically sign. The CDI & [facility] Coding staff will review the response and follow-up if needed. Please note: Queries are made part of the Legal Health Record. If you have any questions, please contact the author of this message via ITS. Dr. Sánchez Haider Congestive Heart Failure is documented in your H & P and Progress Notes. History/Risk Factors: 73 y/o female presents to the ED for dyspnea and generalized weakness. Medical history of COPD, CHF, Clinical Indicators: VS/Pulse OX: 139/91 68 98.0 31 92% BNP:8480 Echocardiogram Results: Overall left ventricular systolic function is normal with, an EF between 55- 60% Chest X Ray: Chronic changes without acute cardiopulmonary process. Treatment: Lopressor, Cozaar, Lasix on 08/08/2018 In your professional opinion, can you please clarify the acuity and type of CHF if known? * Acute Diastolic Heart Failure * Chronic Diastolic Heart Failure * Acute on Chronic Diastolic Heart Failure * Unable to Determine * Other, please specify (Last Revision: July 2017) MTDD
--- NOTE | 2018-08-12 17:05 | P.PN ---
Subjective Progress Note Date: 08/12/18 Principal diagnosis: Non-Hodgkin's lymphoma, status post 3 cycles of Rituxan and bendeka, last dose 07/16/18. Chemotherapy-induced pancytopenia In follow-up today patient states feeling okay. We reviewed her low but stable platelet counts, hemoglobin is stable as well, her white blood cell count is improving. Patient denies any fevers, vomiting, bleeding, or pain Objective - Vital Signs Vital signs: Vital Signs Temp 97.0 F L 08/12/18 11:50 Pulse 64 08/12/18 16:14 Resp 18 08/12/18 11:50 BP 157/97 08/12/18 11:50 Pulse Ox 98 08/12/18 11:50 Intake & Output 08/11/18 08/12/18 08/12/18 18:59 06:59 18:59 Intake Total 240 480 Balance 240 480 Weight 97.4 kg Intake: Oral 240 480 Other: Voiding Method Bedside Commode # Voids 1 2 1 # Bowel Movements 0 0 - Constitutional General appearance: Present: cooperative, no acute distress, obese - EENT Eyes: Present: anicteric sclerae, EOMI ENT: Present: hearing grossly normal - Respiratory Respiratory: bilateral: CTA - Cardiovascular Rhythm: regular Heart sounds: normal: S1, S2 Abnormal Heart Sounds: Absent: systolic murmur, diastolic murmur, rub, S3 Haddad p, S4 Gallop, click, other - Gastrointestinal General gastrointestinal: Present: normal bowel sounds, soft - Integumentary Integumentary: Present: pale - Neurologic Neurologic: Present: CNII-XII intact - Musculoskeletal Musculoskeletal: Present: generalized weakness, strength equal bilaterally - Psychiatric Psychiatric: Present: A&O x's 3, appropriate affect, intact judgment & insight - Labs CBC & Chem 7: 08/12/18 06:50 08/11/18 06:20 Labs: Abnormal Lab Results - Last 24 Hours (Table) 08/12/18 Range/Units 06:50 WBC 3.6 L (3.8-10.6) k/uL RBC 3.25 L (3.80-5.40) m/uL Hgb 9.9 L (11.4-16.0) gm/dL Hct 31.0 L (34.0-46.0) % RDW 16.4 H (11.5-15.5) % Plt Count 18 L* (150-450) k/uL Lymphocytes # 0.3 L (1.0-4.8) k/uL Assessment and Plan (1) Non Hodgkin's lymphoma Narrative/Plan: Patient is currently status post 3 or 4 cycles of treatment. She is done overall well with treatment. Plan will be to continue treatment in the outpatient setting. CBC in the office next week and follow-up. Current Visit: Yes Status: Chronic Priority: Medium Code(s): C85.90 - NON- HODGKIN LYMPHOMA, UNSPECIFIED, UNSPECIFIED SITE SNOMED Code(s): 717472693 (2) Pancytopenia Narrative/Plan: hemoglobin is stable at 9.9 today, no acute intervention, transfuse for hemoglobin less than 7 unless symptomatic. WBC is normal at 3.6, ANC is normal at 3100. Platelets are low at 18,000 but, stable. Continue to hold L a course. Reinforced bleeding precautions. Reinforced no aspirin, NSAIDs, ibuprofen, Advil or Aleve. CBC in 1 week and office. Current Visit: Yes Status: Acute Priority: Medium Code(s): D61.818 - OTHER PANCYTOPENIA SNOMED Code(s): 803542495
[2018-08-12] MEDS: ATORVASTATIN 40 MG TAB PO SCH (19:58)
--- NOTE | 2018-08-12 21:47 | P.PN ---
Subjective This is a pleasant 73 years old female with past medical history of COPD, ex- smoker quit about 6-7 years ago. Other past history including congestive heart failure and atrial fibrillation on Eliquis. Who presents because of worsening dyspnea over 2 days associated with cough and yellow phlegm. She has chest pain on admission but is not anymore when I saw her today she denies chest pain or abdominal pain. No change in urine or bowel habits. She follows with Dr. Cowan, rabbet operator as an outpatient. Today her creatinine went up to 0.7 up to 1.05. Patient is on Lasix 40 mg twice a day. Which we will stop. Also we will change her prednisone 30 mg daily to IV Solu-Medrol 60 mg. Patient is also on doxycycline 08/11/2018 Patient breathing is improving. However she still feels generally weak. She says that her cough and phlegm is a little better. Patient also has chronic abdominal pain which she states it's for months now mostly related to lymphoma as per patient also. Patient is hemodynamically stable. She has pancytopenia edges similar to yesterday. Mainly her platelets are low at 15. Her anticoagulation are on hold. Creatinine is 0.96. Most [facility]. Patient is been followed by hematology/oncology team and their input is appreciated. Case was discussed wit h hematology oncology team. 08/12/18 pt is doing well , no chest pain or dyspnea, no abd pain , pt is lying in bed comfortable, hemodynamically stable, hemoglobin , wbc are stable, Platelet count is 15K , no signs or symptoms of bleeding . oncology and cardiology input is appreciated . pt was started on small dose of Cozaar per cardiology recommendation . i talked to pt today and she agrees to go to rehab for short term physical therapy. CONSTITUTIONAL: No fever, no malaise, no fatigue. HEENT: No recent visual problems or hearing problems. Denied any sore throat. CARDIOVASCULAR: no syncope. PULMONARY: no hemoptysis. GASTROINTESTINAL: No diarrhea, no nausea, no vomiting, no abdominal pain. Normoactive bowel sounds. NEUROLOGICAL: No headaches, no weakness, no numbness. HEMATOLOGICAL: Denies any bleeding or petechiae. GENITOURINARY: Denies any burning micturition, frequency, or urgency. MUSCULOSKELETAL/RHEUMATOLOGICAL: Denies any joint pain, swelling, or any muscle pain. ENDOCRINE: Denies any polyuria or polydipsia. Medication: Tylenol, albuterol, Fosamax, Xanax, Lipitor, Symbicort, doxycycline, Lasix, [place], Dilaudid, meclizine, Reglan, Lopressor, potassium, Protonix, prednisone. Objective - Vital Signs Vital signs: Vital Signs Temp 98.2 F 08/12/18 19:45 Pulse 78 08/12/18 20:10 Resp 18 08/12/18 19:45 BP 150/69 08/12/18 19:45 Pulse Ox 97 08/12/18 19:45 Intake & Output 08/12/18 08/12/18 08/13/18 06:59 18:59 06:59 Intake Total 600 Balance 600 Weight 97.4 kg Intake: Oral 600 Other: Voiding Method Bedside Commode # Voids 2 1 1 # Bowel Movements 0 - Exam GENERAL: The patient is alert and oriented x3, not in any acute distress. Well developed, well nourished. HEENT: Pupils are round and equally reacting to light. EOMI. No scleral icterus. No conjunctival pallor. Normocephalic, atraumatic. No pharyngeal erythema. No thyromegaly. CARDIOVASCULAR: S1 and S2 present. No murmurs, rubs, or gallops. PULMONARY: Chest is clear to auscultation, no wheezing or crackles. ABDOMEN: Soft, nontender, nondistended, normoactive bowel sounds. No palpable organomegaly. MUSCULOSKELETAL: No joint swelling or deformity. EXTREMITIES: No cyanosis, clubbing, or pedal edema. NEUROLOGICAL: Gross neurological examination did not reveal any focal deficits. SKIN: No rashes. - Labs CBC & Chem 7: 08/12/18 06:50 08/11/18 06:20 Labs: Abnormal Lab Results - Last 24 Hours (Table) 08/12/18 Range/Units 06:50 WBC 3.6 L (3.8-10.6) k/uL RBC 3.25 L (3.80-5.40) m/uL Hgb 9.9 L (11.4-16.0) gm/dL Hct 31.0 L (34.0-46.0) % RDW 16.4 H (11.5-15.5) % Plt Count 18 L* (150-450) k/uL Lymphocytes # 0.3 L (1.0-4.8) k/uL Assessment and Plan Assessment: Mostly COPD acute exacerbation Pancytopenia Acute kidney injury, mostly prerenal. History of CHF, I don't think is an active issue currently. Previous a smoker History of atrial fibrillation on Eliquis Plan: This is a pleasant 73 years old female who presents with acute COPD exacerbation rather than congestive heart failure. Also she has pancytopenia, mainly thrombocytopenia. Hematology oncology consult is already called. Cardiology input is appreciated. Continue with steroids, antibiotics, breathing treatment. For acute kidney injury and given a small IV bolus.Labs and medication were reviewed.. Continue same treatment. Continue with symptomatic treatment. Resume home medication. Monitor lytes and vitals. DVT and GI prophylaxis. Further recommendations of the clinical course of the patient DVT prophylaxis: Eliquis is on hold for thrombocytopenia GI Prophylaxis: Ppi PT/OT: Pending Prognosis is guarded
[2018-08-13] MEDS: HYDROcodone/APAP 7.5-325MG 1 EACH TAB PO PRN ×3 (04:18→20:20)
[2018-08-13] MEDS: PANTOPRAZOLE 40 MG TABLET PO SCH (06:32)
[2018-08-13] MEDS: METOCLOPRAMIDE 5 MG TAB PO SCH ×3 (06:32→20:19)
[2018-08-13 07:16] LABS: Anisocytosis Slight; Basophils % (A) 0 %; Eosinophils % (A) 0 %; HCT 29.3 % (34.0-46.0); HGB 9.7 gm/dL (11.4-16.0); Lymphocytes # (A) 0.3 k/uL (1.0-4.8); Lymphocytes % (A) 11 %; MCH 31.2 pg (25.0-35.0); MCV 94.7 fL (80.0-100.0); Mean Platelet Volume 10.8; Monocytes # (A) 0.2 k/uL (0-1.0); Monocytes % (A) 6 %; Neutrophils # (A) 2.4 k/uL (1.3-7.7); Neutrophils % (A) 83 %; RDW 16.7 % (11.5-15.5); WBC 2.9 k/uL (3.8-10.6)
[2018-08-13 07:17] LABS: Platelet Count 17 k/uL (150-450)
[2018-08-13] MEDS: DOXYCYCLINE 100 MG CAP PO SCH ×2 (08:42→22:37)
[2018-08-13] MEDS: methylPREDNISolone SOD SUCCI 125 MG/2 ML VIAL IV SCH ×3 (08:42→22:37)
[2018-08-13] MEDS: ALPRAZolam 0.25 MG TAB PO PRN ×2 (08:42→21:25)
[2018-08-13] MEDS: METOPROLOL TARTRATE 50 MG TAB PO SCH ×2 (08:42→21:24)
[2018-08-13] MEDS: MECLIZINE 25 MG TAB PO SCH (08:43)
[2018-08-13] MEDS: ONDANSETRON 4 MG/2 ML VIAL IVP PRN ×2 (08:58→21:41)
[2018-08-13] MEDS ORDERED: LOSARTAN 25 MG TAB PO SCH (09:00)
[2018-08-13] MEDS: IPRATROPIUM-ALBUTEROL 3 ML NEB INHALATION SCH ×4 (09:27→19:14)
[2018-08-13] MEDS: SYMBICORT 160-4.5 MCG INHALER INHALATION SCH (09:27)
--- NOTE | 2018-08-13 11:14 | P.PN ---
Subjective Progress Note Date: 08/13/18 This is a pleasant 73-year-old female who has a known history of congestive cardiac failure, paroxysmal atrial fibrillation, carcinoma for which she is on chemotherapy, she has MALT lymphoma of the small bowel, she had recently been in [facility], was admitted here to [facility] with symptoms of progressively worsening shortness of breath, her BNP was elevated on admission here. Since admission here the patient does feel overall quite a bit better with her breathing, she had diuresed on IV Lasix. Her overall weight is down 3 kg from admission. White blood cell count 3.2, hemoglobin 10.4, platelet count 17. Sodium 139, potassium 3.7, BUN 43 and creatinine 1.0. At the time of my examination this morning, patient states she generally just does not feel well, she did not sleep very many hours last night, and is very sleepy this morning and weak. She states that her breathing is back to her normal. Blood pressure 156/80 with a heart rate in the 60s, 99% on room air. 08/11/2018 Patient was seen and examined this morning, she overall looks better today than she did yesterday, she does still feel tired however slept much better through the night last night and her breathing today is overall stable. Blood pressure 122/80 with a heart rate in the 60s, 98% on 2 L of oxygen. Blood cell count 3.2, hemoglobin 10.4, lately count 15. Sodium 138, potassium 4.5, BUN 39 and creatinine 0.9. 2018 Patient was seen and examined this morning, she does feel better overall. She is anticipating transferred to rehab today. Blood pressure 150/80 with a heart rate in the 60s, 99% on 2 L of oxygen. We will add a small dose of Cozaar to her medication regime. She may be able to be transferred today. 08/13/2018 Patient was seen and examined this morning, she's complaining of mild nausea. Blood pressure 136/70 with a heart rate in the 60s, 97% on 2 L of oxygen. White blood cell count 2.9, hemoglobin 9.7, platelet count 17. Objective - Vital Signs Vital signs: Vital Signs Temp 97.6 F 08/13/18 04:15 Pulse 68 08/13/18 04:15 Resp 18 08/13/18 04:15 BP 137/74 08/13/18 04:15 Pulse Ox 97 08/13/18 04:15 Intake & Output 08/12/18 08/13/18 08/13/18 18:59 06:59 18:59 Intake Total 600 120 Balance 600 120 Intake: Oral 600 120 Other: # Voids 1 1 1 # Bowel Movements 0 0 - Exam PHYSICAL EXAMINATION: GENERAL: 73-year-old female in no acute distress at the time of my examination HEENT: Head is atraumatic, normocephalic. Pupils equal, round. Sclera anicteric. Conjunctiva are clear. Mucous membranes of the mouth are moist. Neck is supple. There is no elevated jugular venous pressure. No carotid bruit is heard. HEART EXAMINATION: Heart S1 S2 1 systolic murmur is heard CHEST EXAMINATION: Lungs are clear with diminished air entry to bilateral bases. ABDOMEN: Soft, nontender. Bowel sounds are heard. No organomegaly noted. EXTREMITIES: 2+ peripheral pulses with no evidence of peripheral edema and no calf tenderness noted. NEUROLOGIC patient is awake, alert and oriented 3 . . - Labs CBC & Chem 7: 08/13/18 06:35 08/11/18 06:20 Labs: Abnormal Lab Results - Last 24 Hours (Table) 08/13/18 Range/Units 06:35 WBC 2.9 L (3.8-10.6) k/uL RBC 3.10 L (3.80-5.40) m/uL Hgb 9.7 L (11.4-16.0) gm/dL Hct 29.3 L (34.0-46.0) % RDW 16.7 H (11.5-15.5) % Plt Count 17 L* (150-450) k/uL Lymphocytes # 0.3 L (1.0-4.8) k/uL Assessment and Plan Plan: Assessment and plan #1 congestive heart failure, we function unknown, echo has been performed which is yet pending. #2 abnormality in troponin, not consistent with acute coronary syndrome, no significant rise and fall pattern. 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 From cardiology's perspective, we'll follow this patient along with you now on an as-needed basis only, please don't hesitate to call if you have any questions at all. DNP note has been reviewed, I agree with a documented findings and plan of care. Patient was seen and examined.
[2018-08-13] MEDS ORDERED: ONDANSETRON 4 MG/2 ML VIAL IVP STA (12:05)
[2018-08-13] MEDS ORDERED: diphenhydrAMINE 50 MG/ML 1 ML VIAL IVP PRN (12:06)
--- NOTE | 2018-08-13 13:44 | P.PN ---
Subjective This is a pleasant 73 years old female with past medical history of COPD, ex- smoker quit about 6-7 years ago. Other past history including congestive heart failure and atrial fibrillation on Eliquis. Who presents because of worsening dyspnea over 2 days associated with cough and yellow phlegm. She has chest pain on admission but is not anymore when I saw her today she denies chest pain or abdominal pain. No change in urine or bowel habits. She follows with Dr. Cowan, administrative office clerk as an outpatient. Today her creatinine went up to 0.7 up to 1.05. Patient is on Lasix 40 mg twice a day. Which we will stop. Also we will change her prednisone 30 mg daily to IV Solu-Medrol 60 mg. Patient is also on doxycycline 08/11/2018 Patient breathing is improving. However she still feels generally weak. She says that her cough and phlegm is a little better. Patient also has chronic abdominal pain which she states it's for months now mostly related to lymphoma as per patient also. Patient is hemodynamically stable. She has pancytopenia edges similar to yesterday. Mainly her platelets are low at 15. Her anticoagulation are on hold. Creatinine is 0.96. Most likely patient will need to go to [facility] for rehab upon discharge. Patient is been followed by hematology/oncology team and their input is appreciated. Case was discussed wit h hematology oncology team. 08/12/18 pt is doing well , no chest pain or dyspnea, no abd pain , pt is lying in bed comfortable, hemodynamically stable, hemoglobin , wbc are stable, Platelet count is 15K , no signs or symptoms of bleeding . oncology and cardiology input is appreciated . pt was started on small dose of Cozaar per cardiology recommendation . i talked to pt today and she agrees to go to rehab for short term physical therapy. 08/13/2018 Patient today was not feeling well since morning with severe nausea and vomiting which was intractable to medical therapy. However patient denies chest pain or dyspnea. Hemodynamically stable. WBC 2.9, hemoglobin 9.7, platelets 17, which is similar to her previous levels as part of her pancytopenia, hematology oncology team R following the case closely. As per labor economist team patient can be monitored as an outpatient once she is asymptomatic. Cartilage team they started the patient on Cozaar yesterday. Also going to check labs in the view of her vomiting CONSTITUTIONAL: No fever, no malaise, no fatigue. HEENT: No recent visual problems or hearing problems. Denied any sore throat. CARDIOVASCULAR: no syncope. PULMONARY: no hemoptysis. GASTROINTESTINAL: No diarrhea, no nausea, no vomiting, no abdominal pain. Normoactive bowel sounds. NEUROLOGICAL: No headaches, no weakness, no numbness. HEMATOLOGICAL: Denies any bleeding or petechiae. GENITOURINARY: Denies any burning micturition, frequency, or urgency. MUSCULOSKELETAL/RHEUMATOLOGICAL: Denies any joint pain, swelling, or any muscle pain. ENDOCRINE: Denies any polyuria or polydipsia. Medication: Tylenol, albuterol, Fosamax, Xanax, Lipitor, Symbicort, doxycycline, Lasix, [place], Dilaudid, meclizine, Reglan, Lopressor, potassium, Protonix, prednisone. Objective - Vital Signs Vital signs: Vital Signs Temp 97.4 F L 08/13/18 08:25 Pulse 67 08/13/18 08:25 Resp 18 08/13/18 08:25 BP 222/91 08/13/18 08:25 Pulse Ox 97 08/13/18 08:25 Intake & Output 08/12/18 08/13/18 08/13/18 18:59 06:59 18:59 Intake Total 600 120 Balance 600 120 Intake: Oral 600 120 Other: # Voids 1 1 0 # Bowel Movements 0 0 - Exam GENERAL: The patient is alert and oriented x3, not in any acute distress. Well developed, well nourished. HEENT: Pupils are round and equally reacting to light. EOMI. No scleral icterus. No conjunctival pallor. Normocephalic, atraumatic. No pharyngeal erythema. No thyromegaly. CARDIOVASCULAR: S1 and S2 present. No murmurs, rubs, or gallops. PULMONARY: Chest is clear to auscultation, no wheezing or crackles. ABDOMEN: Soft, nontender, nondistended, normoactive bowel sounds. No palpable organomegaly. MUSCULOSKELETAL: No joint swelling or deformity. EXTREMITIES: No cyanosis, clubbing, or pedal edema. NEUROLOGICAL: Gross neurological examination did not reveal any focal deficits. SKIN: No rashes. - Labs CBC & Chem 7: 08/13/18 06:35 08/11/18 06:20 Labs: Abnormal Lab Results - Last 24 Hours (Table) 08/13/18 Range/Units 06:35 WBC 2.9 L (3.8-10.6) k/uL RBC 3.10 L (3.80-5.40) m/uL Hgb 9.7 L (11.4-16.0) gm/dL Hct 29.3 L (34.0-46.0) % RDW 16.7 H (11.5-15.5) % Plt Count 17 L* (150-450) k/uL Lymphocytes # 0.3 L (1.0-4.8) k/uL Assessment and Plan Assessment: Mostly COPD acute exacerbation Pancytopenia Intractable nausea and vomiting Acute kidney injury, mostly prerenal. Improving History of CHF, I don't think is an active issue currently. Previous a smoker History of atrial fibrillation on Eliquis Plan: This is a pleasant 73 years old female who presents with acute COPD exacerbation rather than congestive heart failure. Also she has pancytopenia, mainly thrombocytopenia. Hematology oncology consult is already called. Cardiology input is appreciated. Continue with steroids, antibiotics, breathing treatment. For acute kidney injury and given a small IV bolus.Labs and medication were reviewed.. Continue same treatment. Continue with symptomatic treatment. Resume home medication. Monitor lytes and vitals. DVT and GI prophylaxis. Further recommendations of the clinical course of the patient DVT prophylaxis: Eliquis is on hold for thrombocytopenia GI Prophylaxis: Ppi PT/OT: Pending Prognosis is guarded
[2018-08-13] MEDS ORDERED: TRIMETHOBENZAMIDE 100 MG/ML 2 ML VIAL IM PRN (14:18)
[2018-08-13] MEDS ORDERED: MORPHINE SULFATE 2 MG/ML SYRINGE IVP PRN (14:21)
[2018-08-13 15:29] LABS: Calcium 9.4 mg/dL (8.4-10.2); Magnesium 1.5 mg/dL (1.6-2.3); Potassium 4.7 mmol/L (3.5-5.1)
--- NOTE | 2018-08-13 15:52 | CT ---
EXAMINATION TYPE: CT abdomen pelvis wo con DATE OF EXAM: 08/13/2018 COMPARISON: 06/29/2018 HISTORY: Abdominal pain, nausea and vomiting. CT DLP: 973.2 mGycm Automated exposure control for dose reduction was used. TECHNIQUE: Helical acquisition of images was performed from the lung bases through the pelvis. FINDINGS: LUNG BASES: Bandlike atelectasis and/or scarring is seen at the right lung base. Trace pericardial ef fusion is noted. LIVER/GB: Unremarkable unenhanced morphology with surgical absence of the gallbladder PANCREAS: No ductal dilatation. Unremarkable unenhanced morphology. SPLEEN: Mild atrophy. ADRENALS: No significant abnormality is seen. KIDNEYS: No hydronephrosis or nephrolithiasis. FREE AIR: No free air is visualized REPRODUCTIVE ORGANS: No significant abnormality is seen URINARY BLADDER: No significant abnormality is seen. ADENOPATHY: There is continued decrease in size of the right lower quadrant mesenteric mass biopsy p roven lymphoma. This now measures 1.5 x 1.4 cm and previously measured 1.8 x 1.8 cm on the exam of 02/2019. No new adenopathy is seen in the abdomen or pelvis. OSSEOUS STRUCTURES: Right femoral arthroplasty is noted with extensive spray artifact limiting evalu ation of the pelvis. There is mild diffuse osseous demineralization and degenerative change of the th oracic spine.. BOWEL: Sutures are seen surrounding loops of small bowel in the right lower quadrant. No dilated lar ge or small bowel. Very mild small bowel wall thickening is seen adjacent to the ventral hernia. OTHER: Again there is a wide neck fat-containing ventral abdominal hernia. Some fat stranding in the right flank subcutaneous soft tissues is mild. Extensive atherosclerosis is seen of the abdominal aor ta and its branches. IMPRESSION: 1. CONTINUED DECREASE IN SIZE OF THE RIGHT LOWER QUADRANT BIOPSY-PROVEN LYMPHOMA IN THE CENTRAL MESEN KIM. 2. SLIGHTLY PROMINENT WALL THICKENING OF A SOLITARY LOOP OF SMALL BOWEL ADJACENT TO THE VENTRAL ABDOM INAL HERNIA COULD RELATE TO INCOMPLETE DISTENTION OR MILD ENTERITIS GIVEN THE PATIENT'S ABDOMINAL CLOVIS N. 3. SUBTLE FAT STRANDING OVER THE RIGHT FLANK IS SIMILAR TO THE PRIOR AND MAY REPRESENT FLUID OVERLOAD . 4. TRACE PERICARDIAL EFFUSION.
[2018-08-13] MEDS ORDERED: MORPHINE SULFATE 2 MG/ML SYRINGE IVP STA (16:52)
[2018-08-13] MEDS ORDERED: MAGNESIUM SULFATE-D5W PMX 1 GM in DEXTROSE/WATER 1 100ML.BAG IVPB ONE (16:53)
[2018-08-13] MEDS: MORPHINE SULFATE 4 MG/ML SYRINGE IVP PRN ×2 (17:21→21:24)
[2018-08-13] MEDS ORDERED: hydrALAZINE HCL 20 MG/ML 1 ML VIAL IVP STA (19:06)
[2018-08-13] MEDS: AMPICILLIN-SULBACTAM 1.5 GM in SODIUM CHLORIDE 0.9% 50 ML IVPB SCH ×2 (20:10→22:37)
[2018-08-13] MEDS: ATORVASTATIN 40 MG TAB PO SCH (20:19)
[2018-08-13] MEDS ORDERED: HYDROmorphone 0.5 MG/0.5 ML SYRINGE IVP STA (21:56)
[2018-08-13] MEDS ORDERED: HYDROmorphone 0.5 MG/0.5 ML SYRINGE IVP PRN (23:36)
[2018-08-13] MEDS ORDERED: hydrALAZINE HCL 20 MG/ML 1 ML VIAL IVP PRN (23:51)
[2018-08-14] MEDS ORDERED: metroNIDAZOLE-NS PMX 500 MG in SALINE 1 100ML.BAG IVPB SCH
[2018-08-14 00:08] VITALS: RESP 20
[2018-08-14] MEDS: MORPHINE SULFATE 4 MG/ML SYRINGE IVP PRN (01:04)
[2018-08-14 04:13] VITALS: BP 155/90; PULSE 90; TEMP 98.2
[2018-08-14] MEDS: AMPICILLIN-SULBACTAM 1.5 GM in SODIUM CHLORIDE 0.9% 50 ML IVPB SCH (05:13)
[2018-08-14] MEDS: PANTOPRAZOLE 40 MG TABLET PO SCH (06:35)
[2018-08-14] MEDS: METOCLOPRAMIDE 5 MG TAB PO SCH (06:35)
[2018-08-14 07:29] LABS: Anisocytosis Slight; Basophils % (A) 0 %; Eosinophils % (A) 1 %; HCT 44.6 % (34.0-46.0); Hypochromasia Slight; INR 1.5 (<1.2); Lymphocytes # (A) 0.3 k/uL (1.0-4.8); Lymphocytes % (A) 12 %; MCH 32.1 pg (25.0-35.0); MCHC 32.5 g/dL (31.0-37.0); MCV 98.7 fL (80.0-100.0); Macrocytosis Slight; Mean Platelet Volume 8.7; Monocytes # (A) 0.1 k/uL (0-1.0); Monocytes % (A) 3 %; Neutrophils # (A) 1.8 k/uL (1.3-7.7); Neutrophils % (A) 82 %; RBC 4.52 m/uL (3.80-5.40); RDW 16.9 % (11.5-15.5); WBC 2.2 k/uL (3.8-10.6)
[2018-08-14 07:39] LABS: HGB 14.5 gm/dL (11.4-16.0); Platelet Count 8 k/uL (150-450)
[2018-08-14] MEDS ORDERED: NOREPINEPHRINE 1 MG/ML 4 ML VIAL IV ONE (07:50)
[2018-08-14] MEDS ORDERED: SODIUM CHLORIDE 0.9% 250 ML BAG ONE (07:50)
[2018-08-14] MEDS ORDERED: CALCIUM CHLORIDE 100 MG/ML 10 ML SYRINGE ONE (07:50)
[2018-08-14] MEDS ORDERED: SODIUM BICARB 8.4% 50 ML SYR (1 MEQ/ML) ONE (07:50)
[2018-08-14] MEDS ORDERED: EPINEPHrine 10 ML SYRINGE (0.1 MG/ML) ONE (07:50)
[2018-08-14] MEDS ORDERED: MAGNESIUM SULFATE 4 MEQ/ML 10ML VIAL ONE (07:50)
[2018-08-14 07:54] LABS: Glucose,Whole Blood 113 mg/dL (75-99)
[2018-08-14 07:55] LABS: Albumin 3.2 g/dL (3.5-5.0); Calcium 8.8 mg/dL (8.4-10.2); Magnesium 2.7 mg/dL (1.6-2.3); Total Bilirubin 3.4 mg/dL (0.2-1.3); Total Protein 5.7 g/dL (6.3-8.2)
[2018-08-14 08:20] LABS: Potassium 7.4 mmol/L (3.5-5.1)
[2018-08-14] MEDS ORDERED: Alendronate Sodium [Fosamax] 70 MG PO SCH (09:00)
--- NOTE | 2018-08-14 11:04 | ED ---
Medical Decision Making - Medical Decision Making Called overhead for CODE BLUE. I did go evaluate patient. Patient did have no pulse and CPR was underway. Patient was intubated by AIR ANALYSIS ENGINEERING TECHNICIAN. Breath sounds were equal bilaterally with rales with bag insufflation. Onset of code was 750. Patient did have return of pulse and then lost pulses after less than 10 minutes. CPR was restarted. Patient received multiple medications and ACLS protocol was followed. At 8:30 patient did have return of pulse and this was held for at least [address] hager was aware and present. Total critical care time 30 minutes. - Lab Data Result diagrams: 08/14/18 07:15 08/14/18 07:15 Lab Results 08/08/18 08/08/18 08/08/18 Range/Units 16:15 16:15 16:15 WBC 1.4 L* (3.8-10.6) k/uL RBC 3.56 L (3.80-5.40) m/uL Hgb 11.3 L (11.4-16.0) gm/dL Hct 33.6 L (34.0-46.0) % MCV 94.4 (80.0-100.0) fL MCH 31.8 (25.0-35.0) pg MCHC 33.7 (31.0-37.0) g/dL RDW 16.4 H (11.5-15.5) % Plt Count 17 L* (150-450) k/uL Neutrophils % 67 % Lymphocytes % 24 % Monocytes % 5 % Eosinophils % 2 % Basophils % 0 % Neutrophils # 0.9 L (1.3-7.7) k/uL Lymphocytes # 0.3 L (1.0-4.8) k/uL Monocytes # 0.1 (0-1.0) k/uL Eosinophils # 0.0 (0-0.7) k/uL Basophils # 0.0 (0-0.2) k/uL Anisocytosis Slight PT (9.0-12.0) sec INR (<1.2) APTT (22.0-30.0) sec Sodium 136 L (137-145) mmol/L Potassium 3.5 (3.5-5.1) mmol/L Chloride 97 L (98-107) mmol/L Carbon Dioxide 33 H (22-30) mmol/L Anion Gap 6 mmol/L BUN 19 H (7-17) mg/dL Creatinine 0.76 (0.52-1.04) mg/dL Est GFR (CKD-EPI)AfAm >90 (>60 ml/min/1.73 sqM) Est GFR (CKD-EPI)NonAf 79 (>60 ml/min/1.73 sqM) Glucose 167 H (74-99) mg/dL Calcium 8.5 (8.4-10.2) mg/dL Magnesium 1.7 (1.6-2.3) mg/dL Total Bilirubin 1.3 (0.2-1.3) mg/dL AST 60 H (14-36) U/L ALT 59 H (9-52) U/L Alkaline Phosphatase 123 (38-126) U/L Troponin I (0.000-0.034) ng/mL NT-Pro-B Natriuret Pep 8480 pg/mL Total Protein 5.3 L (6.3-8.2) g/dL Albumin 2.9 L (3.5-5.0) g/dL Urine Color Urine Appearance (Clear) Urine pH (5.0-8.0) Ur Specific [place] (1.001-1.035) Urine Protein (Negative) Urine Glucose (UA) (Negative) Urine Ketones (Negative) Urine Blood (Negative) Urine Nitrite (Negative) Urine Bilirubin (Negative) Urine Urobilinogen (<2.0) mg/dL Ur Leukocyte Esterase (Negative) 08/08/18 08/08/18 08/08/18 Range/Units 16:15 16:15 16:45 WBC (3.8-10.6) k/uL RBC (3.80-5.40) m/uL Hgb (11.4-16.0) gm/dL Hct (34.0-46.0) % MCV (80.0-100.0) fL MCH (25.0-35.0) pg MCHC (31.0-37.0) g/dL RDW (11.5-15.5) % Plt Count (150-450) k/uL Neutrophils % % Lymphocytes % % Monocytes % % Eosinophils % % Basophils % % Neutrophils # (1.3-7.7) k/uL Lymphocytes # (1.0-4.8) k/uL Monocytes # (0-1.0) k/uL Eosinophils # (0-0.7) k/uL Basophils # (0-0.2) k/uL Anisocytosis PT 10.8 (9.0-12.0) sec INR 1.0 (<1.2) APTT 25.2 (22.0-30.0) sec Sodium (137-145) mmol/L Potassium (3.5-5.1) mmol/L Chloride (98-107) mmol/L Carbon Dioxide (22-30) mmol/L Anion Gap mmol/L BUN (7-17) mg/dL Creatinine (0.52-1.04) mg/dL Est GFR (CKD-EPI)AfAm (>60 ml/min/1.73 sqM) Est GFR (CKD-EPI)NonAf (>60 ml/min/1.73 sqM) Glucose (74-99) mg/dL Calcium (8.4-10.2) mg/dL Magnesium (1.6-2.3) mg/dL Total Bilirubin (0.2-1.3) mg/dL AST (14-36) U/L ALT (9-52) U/L Alkaline Phosphatase (38-126) U/L Troponin I 0.154 H* (0.000-0.034) ng/mL NT-Pro-B Natriuret Pep pg/mL Total Protein (6.3-8.2) g/dL Albumin (3.5-5.0) g/dL Urine Color Yellow Urine Appearance Clear (Clear) Urine pH 6.5 (5.0-8.0) Ur Specific [place] 1.014 (1.001-1.035) Urine Protein Trace H (Negative) Urine Glucose (UA) Negative (Negative) Urine Ketones Negative (Negative) Urine Blood Negative (Negative) Urine Nitrite Negative (Negative) Urine Bilirubin Negative (Negative) Urine Urobilinogen <2.0 (<2.0) mg/dL Ur Leukocyte Esterase Negative (Negative) Disposition Clinical Impression: Pancytopenia, Heart failure, Elevated troponin Disposition: ADMITTED IP TO THIS HOSP Condition: Stable Is patient prescribed a controlled substance at d/c from ED?: No
--- NOTE | 2018-08-19 14:04 | P.DS ---
Providers Date of admission: 08/08/18 17:08 Attending physician: Shannon Arriaga Consults: 08/08/18 17:08 Consult Physician Routine Consulting Provider: Xuan Michaud Consult Reason/Comments: Patient known to physician Do you want consulting provider notified?: Yes Consult Physician Routine Consulting Provider: Sánchez Haider Consult Reason/Comments: CHF, elevated troponin Do you want consulting provider notified?: Yes 08/13/18 17:03 Consult Physician Routine Consulting Provider: Venessa Hong Consult Reason/Comments: abd pain Do you want consulting provider notified?: Yes Primary care physician: Paige [facility] Hospital Course: Diagnoses: () Mostly COPD acute exacerbation Pancytopenia Abdominal pain, mostly enteritis Intractable nausea and vomiting Acute kidney injury, mostly prerenal. Improving History of CHF, I don't think is an active issue currently. Previous a smoker History of atrial fibrillation on [facility] course This is a pleasant 73 years old female with past medical history of COPD, ex- smoker quit about 6-7 years ago. Other past history including congestive heart failure and atrial fibrillation on [facility]. Who presents because of worsening dyspnea over 2 days associated with cough and yellow phlegm. Patient has been evaluated by cardiology team and her medication for adjusted. Also oncology team evaluated the patient for her severe pancytopenia, platelets was specifically severely low ranging between 15-18, patient had no overt signs of bleeding, patient Eliquis was put on hold since admission for her severe throm bocytopenia. Patient medication were adjusted according to cardiology and hematology recommendation, please refer to their notes for more details. Patient gradually was getting worse. And eventually patient developed abdominal pain, CAT scan of the abdomen showed possible enteritis. Patient was started on antibiotics and surgical team was called area at this morning I discussed the case with the surgical team physician nutritional assistant Miss Cleveland at bedside and they planed no surgical intervention given her severe thrombocytopenia. Eventually patient developed bradycardia and within minutes MYKE PEACOCK was called on the patient. Code was run by ED team physician Dr. Cadena and as per ACLS protocol. Her pulse was regained temporarily however she became pulseless again and the code was resumed. Family contacted since oscillograph technician and there was no response for Mr. Reyes her power of civil attorney, he was been contacted several times and left a message, at least twice by me as well as other staff members. Eventually Mr. Reyes and other family member arrived by the end of the code. Patient at that time was intubated with Ambu bag ventilation and they gave consent to extubate the patient. Patient eventually stopped a breathing. On examination patient her pupils were fully dilated, no heart sounds, no pulsation, no heartbeat. Reflexes were absent.. Patient pronounced at 9:03 a.m. Emotional support is a provided for the family Patient Condition at Discharge: Stable Plan - Discharge Summary Discharge Rx Participant: No New Discharge Prescriptions: No Action Meclizine [Antivert] 25 mg PO DAILY Fluticasone/Vilanterol [Breo Ellipta 200-25 Mcg INH] 1 puff INHALATION RT- DAILY Atorvastatin [Lipitor] 40 mg PO HS tab ALPRAZolam [Xanax] 0.25 mg PO Q8H PRN #20 tablet PRN Reason: Anxiety Apixaban [Eliquis] 2.5 mg PO BID Pantoprazole Sodium [Protonix] 40 mg PO DAILY Metoprolol Tartrate [Lopressor] 50 mg PO BID Metoclopramide HCl [Reglan] 5 mg PO AC-TID Hydrocodone/Acetaminophen [Elsinore 7.5-325] 1 tab PO Q6HR PRN PRN Reason: Pain Alendronate Sodium [Fosamax] 70 mg PO FR predniSONE See Taper PO DIRECTED Ipratropium-Albuterol Nebulize [Duoneb 0.5 mg-3 mg/3 ml Soln] 3 ml INHALATION RT-Q6H Doxycycline Monohydrate [Monodox] 100 mg PO BID Discharge Medication List Meclizine [Antivert] 25 mg PO DAILY 12/20/16 [History] Fluticasone/Vilanterol [Breo Ellipta 200-25 Mcg INH] 1 puff INHALATION RT-DAILY 04/01/17 [History] ALPRAZolam [Xanax] 0.25 mg PO Q8H PRN #20 tablet 04/15/17 [Rx] Atorvastatin [Lipitor] 40 mg PO HS tab 04/15/17 [Rx] Apixaban [Eliquis] 2.5 mg PO BID 05/14/17 [History] Pantoprazole Sodium [Protonix] 40 mg PO DAILY 06/20/17 [History] Alendronate Sodium [Fosamax] 70 mg PO FR 08/08/18 [History] Doxycycline Monohydrate [Monodox] 100 mg PO BID 08/08/18 [History] Hydrocodone/Acetaminophen [Elsinore 7.5-325] 1 tab PO Q6HR PRN 08/08/18 [History] Ipratropium-Albuterol Nebulize [Duoneb 0.5 mg-3 mg/3 ml Soln] 3 ml INHALATION RT-Q6H 08/08/18 [History] Metoclopramide HCl [Reglan] 5 mg PO AC-TID 08/08/18 [History] Metoprolol Tartrate [Lopressor] 50 mg PO BID 08/08/18 [History] predniSONE See Taper PO DIRECTED 08/08/18 [History] Follow up Appointment(s)/Referral(s): [facility] [Provider Group] - 1 Week Paige Mckeon MD [Primary Care Provider] - 1-2 days Xuan Michaud MD [Family Provider] - 08/19/18 9:30 am (this appointment is for a lab draw) Patient Instructions/Handouts: Heart Failure (DC) Activity/Diet/Wound Care/Special Instructions: PH Medi Discharge Disposition: - Preliminary Cause of Preliminary Cause of : pancytopenia and infection
--- NOTE | 2018-08-20 10:46 | P.PN ---
Progress Note - Text Progress Note Date: 08/20/18 This is an addendum, documentation clarification on this patient. Patient was admitted with congestive heart failure, diastolic, acute on chronic. DNP note has been reviewed, I agree with a documented findings and plan of care. Patient was seen and examined.
--- NOTE | 2018-08-21 13:51 | CGM ---
Documentation Clarification Form Date: 08/21/2018 1:15:25 PM From: Blanca ALCALA,RN,CCDS Email:[email or web address] Admit Date: 08/08/2018 5:08:00 PM Patient Name: Maureen Anand Visit Number: [id number] Discharge Date: 08/14/2018 1:00:00 PM ATTENTION: The Clinical Documentation Specialists (CDI) and [facility] Coding Staff appreciate your assistance in clarifying documentation. Please respond to the clarification below the line at the bottom and electronically sign. The CDI & [facility] Coding staff will review the response and follow-up if needed. Please note: Queries are made part of the Legal Health Record. If you have any questions, please contact the author of this message via ITS. Dr. Rolle Sheet Please render your opinion on the clinical significance, if any, of Abnormal lab History/Risk Factors:73 yo with COPD exacerbation, AEDCHF, elevated troponins, with severe pancytopenia 2nd to chemo, current chemo for MALT lymphoma. PSH of Small bowel resection 2014 & cholecystectomy 2016 Clinical Indicators: PN 08/13 addendum notes reexamined pt due to periumbical abd pain, CT showed possible enteritis close to abd ventral hernia, pt was placed on Unasyn, made NPO and surgery consulted, but due to severe thrombocytopenia no surgical intervention, 08/14 lab :K 7.4, ALT 5408, AST 4307, Bili 3.4, Lactic Acid 6.9 Bili 08/08 1.3 to 3.4 on 08/14 ALT 08/08 59 to 5408 08/14 AST 08/08 60 to 4307 08/14 Radiology findings: CT scan 08/13 for abd pain with n/v. decrease in rt LQ lymphoma n the central mesentery, slightly prominent wall thickening of a solitary loop of small bowel adjacent to ventral abdominal hernia, could relate to incomplete distention or mild enteritis given pts abd pain. Vital Signs: 222/91 97.4 67 18 97% Other Clinical Indicators: Unasyn initiated with CT findings Treatment: NPO, pain medication, surgery consult, IVF for JUAN Clinical significance of diagnostic testing and treatment CANNOT be assumed or coded without physician documentation of significance if any. Abnormal Lab not clinically significant Acute Liver failure Unable to determine Other, please specify MTDD
--- NOTE | 2018-08-21 13:53 | CDI ---
Documentation Clarification Form Date: 08/21/2018 12:09:00 PM From: Blanca ALCALA,RN,CCDS Email:[email or web address] Admit Date: 08/08/2018 5:08:00 PM Patient Name: Maureen Anand Visit Number: [id number] Discharge Date: 08/14/2018 1:00:00 PM ATTENTION: The Clinical Documentation Specialists (CDI) and [facility] Coding Staff appreciate your assistance in clarifying documentation. Please respond to the clarification below the line at the bottom and electronically sign. The CDI & [facility] Coding staff will review the response and follow-up if needed. Please note: Queries are made part of the Legal Health Record. If you have any questions, please contact the author of this message via ITS. Dr. Rolle Sheet Discharge summary notes preliminary cause of is pancytopenia and infection, after study please further specify, if known, the infection location and type treated. History/Risk Factors:73 yo with COPD exacerbation, AEDCHF, elevated troponins, with severe pancytopenia 2nd to chemo, current chemo for MALT lymphoma with CT in 2018 showing progression abdominal adenopathies subsequently decreased on CT scan 06/29/2018. PSH of Small bowel resection 2014 & cholecystectomy 2016 Clinical Indicators: PN 08/13 addendum notes reexamined pt due to periumbical abd pain, CT showed possible enteritis close to abd ventral hernia, pt was placed on Unasyn, made NPO and surgery consulted, but due to severe thrombocytopenia no surgical intervention, Lab findings:K 7.4, ALT 5408, AST 4307, Bili 3.4 and wbcs 2.2 CR increased from 1.08 to 2.25, Lactic Acid 6.9 Radiology findings: CT scan 08/13 for abd pain with n/v. decrease in rt LQ lymphoma n the central mesentery, slightly prominent wall thickening of a solitary loop of small bowel adjacent to ventral abdominal hernia, could relate to incomplete distention or mild enteritis given pts abd pain. Vital Signs: 222/91 97.4 67 18 97% Other Clinical Indicators: Unasyn initiated with CT findings Treatment: NPO, pain medication, surgery consult, IVF for JUAN: In your professional opinion, can you please further clarify the type and location of infection treated with Surgery consult & Unasyn, if known? Infection specified as Other, please specify Unable to determine pt is treated for infection including enteritis MTDD
--- NOTE | 2018-08-24 18:30 | CDI ---
Documentation Clarification Form Date: 08/21/2018 1:15:25 PM From: Blanca ALCALA,RN,CCDS Email:[email or web address] Admit Date: 08/08/2018 5:08:00 PM Patient Name: Maureen Anand Visit Number: [id number] Discharge Date: 08/14/2018 1:00:00 PM ATTENTION: The Clinical Documentation Specialists (CDI) and [facility] Coding Staff appreciate your assistance in clarifying documentation. Please respond to the clarification below the line at the bottom and electronically sign. The CDI & [facility] Coding staff will review the response and follow-up if needed. Please note: Queries are made part of the Legal Health Record. If you have any questions, please contact the author of this message via ITS. Dr. Rolle Sheet Please render your opinion on the clinical significance, if any, of Abnormal lab History/Risk Factors:73 yo with COPD exacerbation, AEDCHF, elevated troponins, with severe pancytopenia 2nd to chemo, current chemo for MALT lymphoma. PSH of Small bowel resection 2014 & cholecystectomy 2016 Clinical Indicators: PN 08/13 addendum notes reexamined pt due to periumbical abd pain, CT showed possible enteritis close to abd ventral hernia, pt was placed on Unasyn, made NPO and surgery consulted, but due to severe thrombocytopenia no surgical intervention, 08/14 lab :K 7.4, Lactic Acid 6.9 Bili 08/08 1.3 to 3.4 on 08/14 ALT 08/08 59 to 5408 08/14 AST 08/08 60 to 4307 08/14 Radiology findings: CT scan 08/13 for abd pain with n/v. decrease in rt LQ lymphoma n the central mesentery, slightly prominent wall thickening of a solitary loop of small bowel adjacent to ventral abdominal hernia, could relate to incomplete distention or mild enteritis given pts abd pain. Vital Signs: 222/91 97.4 67 18 97% Other Clinical Indicators: Unasyn initiated with CT findings Treatment: NPO, pain medication, surgery consult, IVF for JUAN Clinical significance of diagnostic testing and treatment CANNOT be assumed or coded without physician documentation of significance if any. Abnormal Lab not clinically significant Acute Liver failure Unable to determine Other, please specify (Last Revision: January 2017) i think this labs happened during the code, if this is the case then it is suspicious for shock liver MTDD
== END 2018-08-14 13:00 | disposition expired | DRG 190 ==
LOC: EC 15:44 → 3SCARD 17:08
PROVIDERS: ADMIT Hospitalist; ATTEND Hospitalist
DX: J44.1 Chronic obstructive pulmonary disease with (acute) exacerbation (principal); D61.810 Antineoplastic chemotherapy induced pancytopenia; I50.33 Acute on chronic diastolic (congestive) heart failure; K72.00 Acute and subacute hepatic failure without coma; N17.9 Acute kidney failure, unspecified; C88.4 Extranodal marginal zone B-cell lymphoma of mucosa-associated lymphoid tissue [MALT-lymphoma]; C81.90 Hodgkin lymphoma, unspecified, unspecified site; G89.29 Other chronic pain; I11.0 Hypertensive heart disease with heart failure; I25.10 Atherosclerotic heart disease of native coronary artery without angina pectoris; I48.0 Paroxysmal atrial fibrillation; I50.9 Heart failure, unspecified; I73.9 Peripheral vascular disease, unspecified; T45.1X5A Adverse effect of antineoplastic and immunosuppressive drugs, initial encounter; E87.6 Hypokalemia; Z96.60 Presence of unspecified orthopedic joint implant; E78.5 Hyperlipidemia, unspecified; Z79.01 Long term (current) use of anticoagulants; Z79.83 Long term (current) use of bisphosphonates; Z79.899 Other long term (current) drug therapy; Z83.3 Family history of diabetes mellitus; Z86.718 Personal history of other venous thrombosis and embolism; Z86.73 Personal history of transient ischemic attack (TIA), and cerebral infarction without residual deficits; Z87.891 Personal history of nicotine dependence; Z90.49 Acquired absence of other specified parts of digestive tract; Z88.2 Allergy status to sulfonamides; Z98.41 Cataract extraction status, right eye; I25.2 Old myocardial infarction; K52.9 Noninfective gastroenteritis and colitis, unspecified
CPT/HCPCS: 36415; 71046; 74018; 74176; 80048; 80053; 80076; 81003; 83605; 83735; 83880; 84484; 85025; 85610; 85730; 93005; 93306; 94640; 96374; 96375; 99285